=== PATIENT | female | born 1950 | race Caucasian/White ===

== ENCOUNTER → 2017-08-25 13:50 | Outpatient (CLI) | payer MEDICARE, SELFPAY ==
[2017-08-25 15:34] LABS: Blood Urea Nitrogen 30 mg/dL (7-17); Carbon Dioxide 27 mmol/L (22-32); Chloride 98 mmol/L (98-107); Estimated Glomerular Filt Rate 44.7 mL/min (>60); Glucose 148 mg/dL (80-110); HEMOLYSIS < 15 (0-50); Potassium 4.8 mmol/L (3.4-5.1); Sodium 139 mmol/L (137-145)
== END ==
PROVIDERS: Family Provider Family Medicine; PCP Family Medicine; Visit Provider Internal Medicine Cardiovascular Disease
DX: I10 Essential (primary) hypertension (principal)
CPT/HCPCS: 36415; 80048

== ENCOUNTER → 2017-11-04 09:25 | Outpatient (CLI) | payer MEDICARE, SELFPAY ==
[2017-11-04 11:52] LABS: Cholesterol 295 mg/dL (140-199); HDL Cholesterol 62 mg/dL (40-60); LDL Cholesterol Calculated 186 mg/dL (<100); Triglycerides 234 mg/dL (35-150)
== END ==
PROVIDERS: PCP Family Medicine; Visit Provider Internal Medicine Cardiovascular Disease
DX: E78.5 Hyperlipidemia, unspecified (principal)
CPT/HCPCS: 36415; 80061

== ENCOUNTER 2018-01-05 11:04 | Emergency (ER) | payer OTHER, MEDICARE, SELFPAY ==
[2018-01-05 11:20] VITALS: BP 191/85; PULSE 61; RESP 18; TEMP 36.8; O2SAT 97
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
[2018-01-05 14:53] LABS: Add Manual Diff / Slide Review NO; Basophils Percent Auto 0.8 % (0-2); Eosinophils Percent Auto 1.8 % (2-4); Hematocrit 37.8 % (36-46); Lymphocytes Percent Auto 18.1 % (25-40); Mean Corpuscular HGB Conc 34.5 % (30-36); Mean Corpuscular Hemoglobin 29.4 PG (26-34); Mean Corpuscular Volume 85.4 fL (80-100); Monocytes Percent Auto 8.1 % (3-14); Neutrophils Absolute Auto 5400 /uL (3000-5900); Neutrophils Percent Auto 71.2 % (50-75); Platelet Count 297 X10^3/uL (150-400); Red Blood Cell Count 4.42 X10^6/uL (4.0-5.2); Red Cell Distribution Width 13.7 % (11.6-14.8); White Blood Cell Count 7.6 X10^3/uL (4.5-11.0)
[2018-01-05 15:04] LABS: INR 2.5 (0.9-1.3); Prothrombin Time 27.1 SECONDS (10.1-12.7)
[2018-01-05 15:12] LABS: Alanine Aminotransferase 18 IU/L (9-52); Albumin 4.6 g/dL (3.5-5.0); Albumin Globulin Ratio 1.4 (1.0-2.8); Alkaline Phosphatase 83 U/L (38-126); Aspartate Aminotransferase 20 IU/L (14-36); BUN Creatinine Ratio 20.8 (6-22); Bilirubin Total 0.4 mg/dL (0.2-1.3); Blood Urea Nitrogen 25 mg/dL (7-17); Calcium 9.2 mg/dL (8.4-10.2); Carbon Dioxide 24 mmol/L (22-32); Chloride 105 mmol/L (98-107); Estimated Glomerular Filt Rate 44.5 mL/min (>60); Globulin 3.2 g/dL (1.7-4.1); Glucose 124 mg/dL (80-110); HEMOLYSIS < 15 (0-50); Lipase 129 U/L (23-300); Potassium 4.1 mmol/L (3.4-5.1); Sodium 144 mmol/L (137-145); Total Protein 7.8 g/dL (6.3-8.2)
[2018-01-05 16:50] VITALS: BP 180/95; PULSE 64; RESP 20; O2SAT 96
--- NOTE | 2018-01-07 16:33 | PC.NURSE ---
pt states feeling better each day, thank us for the call and the care.
== END 2018-01-05 16:52 | disposition home or self-care (01) ==
PROVIDERS: Emergency Provider Nurse Practitioner Family; PCP Family Medicine
DX: R07.89 Other chest pain (principal); R10.9 Unspecified abdominal pain; V43.62XA Car passenger injured in collision with other type car in traffic accident, initial encounter
CPT/HCPCS: 36591; 71260; 74177; 80053; 83690; 85025; 85610; 93005; 99283; 99285; Q9967

== ENCOUNTER → 2018-02-22 11:13 | Outpatient (CLI) | payer MEDICARE, SELFPAY ==
[2018-02-22 12:26] LABS: Hemoglobin A1C% w Est Avg Glu 6.7 % (4.0-6.0)
== END ==
PROVIDERS: PCP Family Medicine; Visit Provider Family Medicine
DX: E11.9 Type 2 diabetes mellitus without complications (principal); Z51.81 Encounter for therapeutic drug level monitoring
CPT/HCPCS: 36415; 83036

== ENCOUNTER → 2018-04-07 14:18 | Outpatient (CLI) | payer MEDICARE, SELFPAY ==
--- NOTE | 2018-04-07 14:19 | DI.MG.S_ITS ---
BILATERAL DIGITAL SCREENING MAMMOGRAM 3D/2D WITH CAD: 04/07/2018 CLINICAL: Routine screening. Comparison is made to exam dated: 07/04/2007 [facility]. There are scattered fibroglandular elements in both breasts. Current study was also evaluated with a Computer Aided Detection (CAD) system. No significant masses, calcifications, or other findings are seen in either breast. There has been no significant interval change. IMPRESSION: NEGATIVE There is no mammographic evidence of malignancy. A 1 year screening mammogram is recommended. This exam was interpreted at Station ID: [id number]. NOTE: For mammograms, a report in lay terms will be sent to the patient. Approximately 15% of breast malignancies will not be visualized mammographically. In the management of a palpable breast mass, a negative mammogram must not discourage biopsy of a clinically suspicious lesion. Electronically Signed By: Harsha mai/octavia:04/07/2018 16:02:06 letter sent: Normal Exam ACR BI-RADS Category 1: Negative [id number]
[2018-04-07 15:00] LABS: Bacteria Urine None Seen; RBC Urine None Seen (0-5/HPF); WBC Urine None Seen (0-5/HPF)
[2018-04-07 16:07] LABS: Appearance Urine UA CLEAR; Bilirubin Urine UA NEGATIVE (NEGATIVE); Color Urine UA YELLOW; Glucose Urine UA NEGATIVE (Negative); Ketones Urine UA TRACE (NEGATIVE); Leukocyte Esterase Urine UA NEGATIVE (NEGATIVE); Nitrite Urine UA NEGATIVE (Negative); Occult Blood Urine UA NEGATIVE (Negative); Protein Urine UA 2+ (Negative); Specific Gravity Urine UA >=1.030 (1.000-1.035); Urobilinogen Urine UA 0.2 E.U./dL (0.2)
[2018-04-07 16:12] LABS: Squamous Epithelial Cell Urine 5-10 /HPF
[2018-04-07 16:13] LABS: Culture Indicated Urine Cult Not Indicated; Hyaline Casts Urine 5-10/LPF
== END ==
PROVIDERS: PCP Family Medicine; Visit Provider Internal Medicine Nephrology
DX: Z12.31 Encounter for screening mammogram for malignant neoplasm of breast (principal); N18.3 Chronic kidney disease, stage 3 (moderate)
CPT/HCPCS: 77063; 77067; 81001

== ENCOUNTER → 2018-06-15 11:46 | Outpatient (CLI) | payer MEDICARE, SELFPAY ==
[2018-06-15 12:47] LABS: BUN Creatinine Ratio 26.4 (6-22); Blood Urea Nitrogen 29 mg/dL (7-17); Calcium 9.2 mg/dL (8.4-10.2); Carbon Dioxide 27 mmol/L (22-32); Chloride 101 mmol/L (98-107); Estimated Glomerular Filt Rate 49.2 mL/min (>60); Glucose 236 mg/dL (80-110); HEMOLYSIS < 15 (0-50); Magnesium 1.5 mg/dL (1.6-2.3); Potassium 4.3 mmol/L (3.4-5.1); Sodium 137 mmol/L (137-145)
[2018-06-15 13:14] LABS: Thyroid Stimulating Hormone 2.72 uIU/mL (0.47-4.68)
== END ==
PROVIDERS: PCP Family Medicine; Visit Provider Internal Medicine Cardiovascular Disease
DX: I49.5 Sick sinus syndrome (principal); I10 Essential (primary) hypertension
CPT/HCPCS: 36415; 80048; 83735; 84443

== ENCOUNTER → 2018-09-26 09:20 | Outpatient (CLI) | payer MEDICARE, SELFPAY ==
[2018-09-26 10:19] LABS: Hemoglobin A1C% w Est Avg Glu 7.2 % (4.0-6.0)
[2018-09-26 10:43] LABS: Creatinine Urine Random 270.1 mg/dL
[2018-09-26 10:45] LABS: Alanine Aminotransferase 21 IU/L (9-52); Albumin 4.3 g/dL (3.5-5.0); Albumin Globulin Ratio 1.3 (1.0-2.8); Alkaline Phosphatase 70 U/L (38-126); Aspartate Aminotransferase 24 IU/L (14-36); BUN Creatinine Ratio 23.6 (6-22); Bilirubin Total 0.4 mg/dL (0.2-1.3); Blood Urea Nitrogen 26 mg/dL (7-17); Calcium 9.9 mg/dL (8.4-10.2); Carbon Dioxide 25 mmol/L (22-32); Chloride 103 mmol/L (98-107); Cholesterol 296 mg/dL (140-199); Estimated Glomerular Filt Rate 49.2 mL/min (>60); Globulin 3.3 g/dL (1.7-4.1); Glucose 205 mg/dL (80-110); HDL Cholesterol 52 mg/dL (40-60); HEMOLYSIS < 15 (0-50); LDL Cholesterol Calculated 182 mg/dL (<100); Potassium 4.2 mmol/L (3.4-5.1); Sodium 138 mmol/L (137-145); Total Protein 7.6 g/dL (6.3-8.2); Triglycerides 309 mg/dL (35-150)
[2018-09-26 10:47] LABS: Microalbumi Creatinin Ratio Ur 34.8 ug/mg CR (<30); Microalbumin Urine Random 9.4 mg/dL (0-1.6)
[2018-09-26 11:00] LABS: Free T3, Triiodothyronine Free 2.32 pg/mL (2.77-5.27); Free T4, Direct Thyroxine 0.84 ng/dL (0.78-2.19)
[2018-09-26 11:14] LABS: Thyroid Stimulating Hormone 3.83 uIU/mL (0.47-4.68)
== END ==
PROVIDERS: Physician Assistant; PCP Family Medicine; Visit Provider Family Medicine
DX: E11.9 Type 2 diabetes mellitus without complications (principal); E78.5 Hyperlipidemia, unspecified; I12.9 Hypertensive chronic kidney disease with stage 1 through stage 4 chronic kidney disease, or unspecified chronic kidney disease; I48.91 Unspecified atrial fibrillation; N18.9 Chronic kidney disease, unspecified; Z13.29 Encounter for screening for other suspected endocrine disorder; Z51.81 Encounter for therapeutic drug level monitoring
CPT/HCPCS: 36415; 80053; 80061; 82043; 82570; 83036; 84439; 84443; 84481

== ENCOUNTER → 2018-12-10 15:27 | Outpatient (CLI) | payer MEDICARE, SELFPAY | PROVIDERS: PCP Family Medicine; Visit Provider Nurse Practitioner | DX: N30.00 Acute cystitis without hematuria (principal) | CPT/HCPCS: 87077; 87086; 87147; 87186 ==

== ENCOUNTER → 2019-01-15 08:44 | Outpatient (CLI) | payer MEDICARE, SELFPAY ==
[2019-01-15 09:42] LABS: Alanine Aminotransferase 18 IU/L (<35); Albumin 4.6 g/dL (3.5-5.0); Albumin Globulin Ratio 1.5 (1.0-2.8); Alkaline Phosphatase 81 U/L (38-126); Aspartate Aminotransferase 24 IU/L (14-36); BUN Creatinine Ratio 21.3 (6-22); Bilirubin Total 0.4 mg/dL (0.2-1.3); Blood Urea Nitrogen 32 mg/dL (7-17); Calcium 9.7 mg/dL (8.4-10.2); Carbon Dioxide 27 mmol/L (22-32); Chloride 103 mmol/L (98-107); Cholesterol 269 mg/dL (140-199); Estimated Glomerular Filt Rate 34.3 mL/min (>60); Glucose 199 mg/dL (80-110); HDL Cholesterol 56 mg/dL (40-60); HEMOLYSIS < 15 (0-50); LDL Cholesterol Calculated 171 mg/dL (<100); Potassium 4.4 mmol/L (3.4-5.1); Sodium 138 mmol/L (137-145); Total Protein 7.6 g/dL (6.3-8.2); Triglycerides 212 mg/dL (35-150)
[2019-01-15 09:47] LABS: Hemoglobin A1C% w Est Avg Glu 7.1 % (4.0-6.0)
== END ==
PROVIDERS: PCP Family Medicine; Visit Provider Family Medicine
DX: E11.9 Type 2 diabetes mellitus without complications (principal); E78.5 Hyperlipidemia, unspecified; I10 Essential (primary) hypertension
CPT/HCPCS: 36415; 80053; 80061; 83036

== ENCOUNTER → 2019-05-06 11:44 | Outpatient (CLI) | payer MEDICARE, SELFPAY | PROVIDERS: PCP Family Medicine; Visit Provider Physician Assistant | DX: R30.0 Dysuria (principal) | CPT/HCPCS: 87077; 87086; 87186 ==

== ENCOUNTER → 2019-08-29 11:38 | Outpatient (CLI) | payer MEDICARE, SELFPAY ==
[2019-08-29 12:40] LABS: Add Manual Diff / Slide Review NO; Basophils Absolute Auto 100 /uL (0-100); Basophils Percent Auto 0.7 % (0-2); Eosinophils Absolute Auto 100 /uL (0-450); Eosinophils Percent Auto 0.9 % (2-4); Hematocrit 39.2 % (36-46); Hemoglobin 12.8 g/dL (12.0-16.0); Lymphocytes Absolute Auto 1600 /uL (1100-4500); Lymphocytes Percent Auto 19.4 % (25-40); Mean Corpuscular HGB Conc 32.7 % (30-36); Mean Corpuscular Hemoglobin 28.3 PG (26-34); Mean Corpuscular Volume 86.6 fL (80-100); Monocytes Absolute Auto 600 /uL (0-900); Monocytes Percent Auto 7.3 % (3-14); Neutrophils Absolute Auto 5900 /uL (1500-7000); Neutrophils Percent Auto 71.7 % (50-75); Platelet Count 344 X10^3/uL (150-400); Red Blood Cell Count 4.52 X10^6/uL (4.0-5.2); Red Cell Distribution Width 13.3 % (11.6-14.8); White Blood Cell Count 8.2 X10^3/uL (4.5-11.0)
[2019-08-29 12:48] LABS: Hemoglobin A1C% w Est Avg Glu 7.3 % (4.0-6.0)
[2019-08-29 13:47] LABS: Alanine Aminotransferase 14 IU/L (<35); Albumin 4.5 g/dL (3.5-5.0); Albumin Globulin Ratio 1.6 (1.0-2.8); Alkaline Phosphatase 73 U/L (38-126); Aspartate Aminotransferase 21 IU/L (14-36); BUN Creatinine Ratio 24.2 (6-22); Bilirubin Total 0.4 mg/dL (0.2-1.3); Blood Urea Nitrogen 31 mg/dL (7-17); Calcium 10.3 mg/dL (8.4-10.2); Carbon Dioxide 26 mmol/L (22-32); Chloride 101 mmol/L (98-107); Cholesterol 258 mg/dL (140-199); Estimated Glomerular Filt Rate 41.2 mL/min (>60); Globulin 2.9 g/dL (1.7-4.1); Glucose 150 mg/dL (80-110); HDL Cholesterol 68 mg/dL (40-60); HEMOLYSIS < 15 (0-50); LDL Cholesterol Calculated 152 mg/dL (<100); Potassium 4.7 mmol/L (3.4-5.1); Sodium 136 mmol/L (137-145); Total Protein 7.4 g/dL (6.3-8.2); Triglycerides 191 mg/dL (35-150)
[2019-08-29 14:13] LABS: TSH w/ Reflex to FT4 1.55 uIU/mL (0.47-4.68)
== END ==
PROVIDERS: PCP Family Medicine; Referring Provider Family Medicine; Visit Provider Family Medicine
DX: E11.9 Type 2 diabetes mellitus without complications (principal); E78.5 Hyperlipidemia, unspecified; I10 Essential (primary) hypertension; R60.0 Localized edema
CPT/HCPCS: 36415; 80053; 80061; 83036; 84443; 85025

== ENCOUNTER → 2019-11-12 10:00 | Outpatient (CLI) | payer MEDICARE, SELFPAY ==
[2019-11-12 11:33] LABS: Alanine Aminotransferase 15 IU/L (<35); Albumin 4.3 g/dL (3.5-5.0); Albumin Globulin Ratio 1.3 (1.0-2.8); Alkaline Phosphatase 73 U/L (38-126); Aspartate Aminotransferase 20 IU/L (14-36); BUN Creatinine Ratio 24.6 (6-22); Bilirubin Total 0.5 mg/dL (0.2-1.3); Blood Urea Nitrogen 33 mg/dL (7-17); Calcium 9.7 mg/dL (8.4-10.2); Carbon Dioxide 27 mmol/L (22-32); Chloride 103 mmol/L (98-107); Cholesterol 254 mg/dL (140-199); Globulin 3.3 g/dL (1.7-4.1); Glucose 164 mg/dL (80-110); HDL Cholesterol 57 mg/dL (40-60); HEMOLYSIS < 15 (0-50); LDL Cholesterol Calculated 151 mg/dL (<100); Potassium 4.4 mmol/L (3.4-5.1); Sodium 138 mmol/L (137-145); Total Protein 7.6 g/dL (6.3-8.2); Triglycerides 230 mg/dL (35-150)
== END ==
PROVIDERS: PCP Family Medicine; Referring Provider Internal Medicine Cardiovascular Disease; Visit Provider Internal Medicine Cardiovascular Disease
DX: E78.5 Hyperlipidemia, unspecified (principal)
CPT/HCPCS: 36415; 80053; 80061

== ENCOUNTER → 2019-11-20 07:55 | Outpatient (CLI) | payer MEDICARE, SELFPAY ==
--- NOTE | 2019-11-20 | DI.ECHO.S_ITS ---
[place] [facility]---------+ [facility] +---------+ : : [address] : : : : [id number] : : : : Phone: [phone]+ Echocardiogram Report + + :Name: COLTON SMITH Study Date: 11/20/2019 Height: 64 in : :[facility] Weight: 227 lb : : Gender: Female BSA: 2.1 m2 : :: 1950 Age: 69 yrs BP: 155/89 mmHg: :Reason For Study: AORTIC STENOSIS : :Ordering Physician: ROSSI, : :NOAH Performed By: Adri Anthony : :Referring: NOAH RICHEY : + + Interpretation Summary The left ventricle is normal in size and wall thickness. The ejection fraction is estimated to be 60-65%. Diastolic parameters suggest a pseudonormalization pattern, consistent with probable elevated filling pressures. The right ventricle is normal in size and function. There is a pacemaker lead in the right ventricle. The aortic valve is mildly calcified. There is mildly reduced leaflet mobility. The aortic valve is not well visualized. The peak aortic velocity is 2.48 m/sec. The aortic valve mean gradient is 12 mmHg. There is mild aortic stenosis. The calculated aortic valve area is 1.6 cm2. There is mild aortic regurgitation. There is mild tricuspid regurgitation. The right ventricular systolic pressure is estimated to be at least 30.5 mmHg based on an estimated right atrial pressure of 3 mm Hg. Mild atherosclerotic plaque(s) in the aortic arch. Procedure: A two-dimensional transthoracic echocardiogram with color flow and Doppler was performed. The study quality was technically adequate. The patient had an echocardiogram, but there is no comparison study available. The patient was in sinus rhythm with heart rates between 60-65 bpm during the exam. Left Ventricle: The left ventricle is normal in size and wall thickness. There is no thrombus. The ejection fraction is estimated to be 60-65%. There are no focal wall motion abnormalities. Diastolic parameters suggest a pseudonormalization pattern, consistent with probable elevated filling pressures. Right Ventricle: The right ventricle is normal in size and function. There is a pacemaker lead in the right ventricle. Atria: Both atria are normal in size. There is a catheter/pacemaker lead seen in the right atrium. There is no Doppler evidence for an interatrial shunt. Mitral Valve: There is mild mitral annular calcification. There is mild mitral regurgitation. Aortic Valve: The aortic valve is not well visualized. The aortic valve is mildly calcified. There is mildly reduced leaflet mobility. There is mild aortic stenosis. The peak aortic velocity is 2.48 m/sec. The aortic valve mean gradient is 12 mmHg. The calculated aortic valve area is 1.6 cm2. There is mild aortic regurgitation. Tricuspid Valve: The tricuspid valve is normal in structure and function. There is mild tricuspid regurgitation. The right ventricular systolic pressure is estimated to be at least 30.5 mmHg based on an estimated right atrial pressure of 3 mm Hg. Pulmonic Valve: The pulmonic valve is not well visualized. There is trace pulmonic regurgitation. Great Vessels: The aortic root is normal size. There is aortic root sclerosis/calcification. The ascending aorta is at the upper limits of normal in size. Mild atherosclerotic plaque(s) in the aortic arch. The IVC is of normal diameter and collapses greater than 50% with a sniff. This suggests a low right atrial pressure of 3 mm Hg. Pericardium/ Pleura There is no pericardial effusion. There is an anterior echo-free space consistent with a fat pad. There is no pleural effusion. MMode/2D Measurements & Calculations LVIDd: 4.5 cm LVOT diam: 2.1 cm LVIDs: 3.2 cm Ao root diam: 2.6 cm FS: 30.2 % asc Aorta Diam: 3.6 cm EPSS: 0.68 cm Ao Arch Diam (Prox Trans): 3.3 cm IVSd: 1.0 cm LVPWd: 0.80 cm LV freire. diameter/BSA (cm/m^2): 2.2 LV sys. diameter/BSA (cm/m^2): 1.5 LA A2 area: 20.6 cm2 RA long axis: 5.0 cm LA A4 area: 18.1 cm2 RA area: 14.5 cm2 LA length (vol): 5.5 cm RA vol: 35.5 ml LA vol: 58.0 ml RA : 17.2 ml/m2 LA vol index: 28.1 ml/m2 IVC diam: 1.7 cm RVD1 (basal): 3.0 cm TAPSE: 2.5 cm Doppler Measurements & Calculations Ao V2 max: 248.1 cm/sec LVOT Max Jesse: 123.9 cm/sec Ao V2 mean: 159.0 cm/sec LV V1 max P.1 mmHg Ao max P.4 mmHg LV V1 VTI: 30.3 cm Ao mean P.2 mmHg RADHA(I,D): 1.6 cm2 Ao V2 VTI: 62.9 cm RADHA(V,D): 1.7 cm2 sev ratio: 0.48 RADHA indexed to BSA (cm^2/m^2): 0.78 AI P1/2t: 576.0 msec AI dec slope: 191.3 cm/sec2 MV E max jesse: 126.4 cm/sec TR max jesse: 262.2 cm/sec MV A max jesse: 79.0 cm/sec TR max P.5 mmHg MV E/A: 1.6 PA V2 max: 85.1 cm/sec Med Peak E' Jesse: 6.6 cm/sec PA V2 mean: 54.7 cm/sec E/E' med: 19.3 PA mean P.4 mmHg Lat Peak E' Jesse: 10.5 cm/sec PA pr(Accel): 31.0 mmHg E/E' lat: 12.0 E/e' average: 15.6 MV dec time: 0.22 sec SV(LVOT): 101.7 ml Reading Physician:09:48 AM
== END ==
PROVIDERS: PCP Family Medicine; Referring Provider Family Medicine; Visit Provider Internal Medicine Cardiovascular Disease
DX: I08.3 Combined rheumatic disorders of mitral, aortic and tricuspid valves (principal); I70.0 Atherosclerosis of aorta; Z95.0 Presence of cardiac pacemaker
CPT/HCPCS: 93306

== ENCOUNTER 2020-09-23 12:27 | Emergency (ER) | payer MEDICARE, SELFPAY ==
[2020-09-23] VITALS (20 sets, daily range): BP systolic 119–183; BP diastolic 56–77; PULSE 59–67; RESP 12–21; TEMP 36.7; O2SAT 94–99; BMI 35.6
--- NOTE | 2020-09-23 12:46 | DI.RAD.S_ITS ---
PROCEDURE: XR CHEST 1V INDICATIONS: dizzi TECHNIQUE: One view of the chest was acquired. COMPARISON: [facility], , CHEST 1 VIEW, 01/24/2016, 10:34. [facility], , CHEST 2 VIEW, 08/04/2006, 10:31. FINDINGS: Surgical changes and devices: Pacemaker and dual chamber leads normal. Lungs and pleura: Lungs are clear. No pleural effusions or pneumothorax. Mediastinum: Mediastinal contours appear normal. Heart size is normal. Bones and chest wall: No suspicious bony lesions. Overlying soft tissues appear unremarkable. IMPRESSION: Pacemaking device and dual chamber leads normal, no acute disease. Mildly elevated right hemidiaphragm when compared to that on the left. Dictated by: Thom Pleitez M.D. on 09/23/2020 at 13:31 Approved by: Thom Pleitez M.D. on 09/23/2020 at 13:32
--- NOTE | 2020-09-23 12:50 | DI.CT.S_ITS ---
PROCEDURE: CT HEAD/BRAIN WO CON INDICATIONS: headache, dizzy/light headed x 2-3 days. TECHNIQUE: Noncontrast 4.5 mm thick angled axial sections acquired from the foramen magnum to the vertex, with coronal and sagittal reformats. For radiation dose reduction, the following was used: automated exposure control, adjustment of mA and/or kV according to patient size. COMPARISON: None. FINDINGS: Image quality: Excellent. CSF spaces: Basal cisterns are patent. No extra-axial fluid collections. Ventricles are normal in size and shape. Brain: No midline shift. No intracranial masses or hemorrhage. [place]-white matter interface is normal. Skull and face: Calvarium and visualized facial bones are intact, without suspicious lesions. Sinuses: Visualized sinuses and mastoids are clear. IMPRESSION: No acute finding. Dictated by: Kishore Rolle M.D. on 09/23/2020 at 14:52 Approved by: Kishore Rolle M.D. on 09/23/2020 at 14:54
[2020-09-23 13:12] LABS: Appearance Urine UA SL CLOUDY; Bilirubin Urine UA NEGATIVE (NEGATIVE); Color Urine UA YELLOW; Glucose Urine UA NEGATIVE (Negative); Ketones Urine UA NEGATIVE (NEGATIVE); Leukocyte Esterase Urine UA 1+ (NEGATIVE); Nitrite Urine UA POSITIVE (Negative); Occult Blood Urine UA 3+ (Negative); Protein Urine UA 1+ (Negative); Urobilinogen Urine UA 0.2 E.U./dL (0.2)
[2020-09-23 13:25] LABS: Add Manual Diff / Slide Review NO; Basophils Absolute Auto 100 /uL (0-100); Basophils Percent Auto 0.6 % (0-2); Eosinophils Absolute Auto 100 /uL (0-450); Eosinophils Percent Auto 0.9 % (2-4); Hematocrit 37.6 % (36-46); Hemoglobin 12.8 g/dL (12.0-16.0); Lymphocytes Absolute Auto 1000 /uL (1100-4500); Lymphocytes Percent Auto 11.2 % (25-40); Mean Corpuscular HGB Conc 34.2 % (30-36); Mean Corpuscular Hemoglobin 29.3 PG (26-34); Mean Corpuscular Volume 85.8 fL (80-100); Monocytes Absolute Auto 800 /uL (0-900); Monocytes Percent Auto 9.4 % (3-14); Neutrophils Absolute Auto 6800 /uL (1500-7000); Neutrophils Percent Auto 77.9 % (50-75); Platelet Count 299 X10^3/uL (150-400); Red Blood Cell Count 4.38 X10^6/uL (4.0-5.2); Red Cell Distribution Width 12.9 % (11.6-14.8); White Blood Cell Count 8.8 X10^3/uL (4.5-11.0)
[2020-09-23 13:30] LABS: Bacteria Urine Moderate (10-30); Culture Indicated Urine Specimen Cultured; RBC Urine 5-10/HPF (0-5/HPF); Squamous Epithelial Cell Urine 1-5 /HPF (0-5/HPF); WBC Urine 30-100/HPF (0-5/HPF)
[2020-09-23 13:34] LABS: INR 3.3 (0.9-1.3); Prothrombin Time 38.2 SECONDS (10.1-12.7)
[2020-09-23 13:39] LABS: Lactate (Lactic Acid) 1.6 mmol/L (0.7-2.1)
[2020-09-23 13:40] LABS: Alanine Aminotransferase 15 IU/L (<35); Albumin 4.1 g/dL (3.5-5.0); Albumin Globulin Ratio 1.1 (1.0-2.8); Alkaline Phosphatase 83 U/L (38-126); Aspartate Aminotransferase 21 IU/L (14-36); BUN Creatinine Ratio 25.3 (6-22); Bilirubin Total 0.3 mg/dL (0.2-1.3); Blood Urea Nitrogen 46 mg/dL (7-17); Calcium 10.1 mg/dL (8.4-10.2); Carbon Dioxide 26 mmol/L (22-32); Chloride 104 mmol/L (98-107); Estimated Glomerular Filt Rate 27.4 mL/min (>60); Globulin 3.6 g/dL (1.7-4.1); Glucose 151 mg/dL (80-110); HEMOLYSIS < 15 (0-50); Potassium 4.6 mmol/L (3.4-5.1); Sodium 139 mmol/L (137-145); Total Protein 7.7 g/dL (6.3-8.2)
[2020-09-23 13:41] LABS: COVID19 -Nasal RAPID Negative (Negative)
[2020-09-23 13:52] LABS: Troponin I < 0.012 ng/mL (0.01-0.034)
[2020-09-23 13:56] LABS: Procalcitonin 0.55 ng/mL (<0.5)
[2020-09-23] MEDS: SODIUM CHLORIDE 0.9% 1,000 ML 1000 ML IV (13:59)
[2020-09-23] MEDS: cefTRIAXone 2,000 MG in SODIUM CHLORIDE 0.9% 100 ML 200 ML IV (14:03)
--- NOTE | 2020-09-23 17:06 | ED_ITS ---
HPI - Dizziness General Chief Complaint: Dizziness Stated Complaint: crazy blood sugar, dizzy, nausea Time Seen by Provider: 09/23/20 13:54 History of Present Illness HPI Narrative: This is a 69-year-old female comes in with complaint of feeling generally unwell, she has had some dysuria, urgency and frequency about 2 days ago which had improved. She has had some generalized abdominal discomfort. She does not really describe any pain. She has not any back or flank pain. She has not had fevers. She has had nausea but no vomiting. She denies any chest pain, no shortness of breath, no cold cough or congestion. Patient has had a headache although this improved here. She denies any neck pain. No photophobia, no difficulty with movement. Patient has not had any rashes or skin changes appreciated. Patient does take medication for cardiac arrhythmias including flecainide and warfarin. Patient is on losartan, hydrochlorothiazide as well as metformin for diabetes. Patient states her glucose has been somewhat elevated for her. It was 162 here in the department. Related Data Home Medications Medication Instructions Recorded Confirmed Lancets 1 ea MISCELLANEOUS DIRECTED 01/05/18 11/22/19 flecainide 50 mg tablet 50 mg PO BID 01/05/18 11/22/19 losartan 50 mg tablet 50 mg PO DAILY tab 03/08/19 11/22/19 Previous Rx's Medication Instructions Recorded Glucose: Test Strips #100 each 12/25/18 True Metrix Blood Glucose Meter #1 ea 01/12/19 nystatin 100,000 unit/gram topical 1 applictn TOP BID #60 gram 09/05/19 powder warfarin 5 mg tablet (Coumadin) 5 mg PO DAILY #90 tab 11/01/19 metformin 500 mg tablet 500 mg PO BID #180 tab 03/05/20 (Glucophage) levothyroxine 100 mcg tablet See Rx Instructions .ROUTE 06/06/20 .COMPLEX #90 tab hydrochlorothiazide 25 mg tablet See Rx Instructions .ROUTE 09/04/20 .COMPLEX #90 tab ciprofloxacin HCl 500 mg tablet 500 mg PO Q12H #20 tab 09/23/20 Allergies Allergy/AdvReac Type Severity Reaction Status Date / Time codeine AdvReac Mild N/V Verified 09/23/20 13:45 Review of Systems Review of Systems ROS Unobtainable: All systems reviewed & are unremarkable except as noted in HPI and below Patient History Medical History Bilateral lower extremity edema Candidal intertrigo Diabetes HTN (hypertension) Hyperlipidemia Pelvic somatic dysfunction Sacral region somatic dysfunction Segmental and somatic dysfunction of abdomen and other regions Segmental and somatic dysfunction of rib cage Somatic dysfunction of lower extremity Warfarin anticoagulation Surgical History History of tonsillectomy Status post appendectomy Status post cholecystectomy Family History Father Hypertension Mother Hypertension Stroke Social History Smoking Status: Never smoker Smoking Status: Never smoker alcohol intake frequency: holidays/special occasions only Substance Use Type: does not use Exam Narrative Exam Narrative: GEN: well nourished, well appearing female, alert and oriented x 3, patient appears to be in mild distress. HEENT: Atraumatic, pupils are equal round reactive to light, extraocular movements are intact, nares are clear, moist mucous membranes. No meningeal signs. Patient has full range of motion of her neck. HEART: Regular rate and rhythm without murmur, clicks, rubs. LUNGS:Lungs clear to auscultation, no wheezes, rales, crackles, chest moves s ymmetrically ABD:bowel sounds normal, soft, non-tender, no guarding, rebound, rigidity, no masses noted, no hepatosplenomegaly :No CVA tenderness MSCL: Non-tender, no muscle atrophy, muscles strength 5/5 upper and lower extremities, full range of motion, normal gait NEURO:CN 2-12 intact, sensation normal SKIN: No rash, erythema or skin changes noted. Initial Vital Signs Initial Vital Signs: Vital Signs Temperature 98.1 F 09/23/20 12:41 Pulse Rate 60 09/23/20 12:41 Respiratory Rate 20 09/23/20 12:41 Blood Pressure 161/73 H 09/23/20 12:41 Pulse Oximetry 99 09/23/20 12:41 Course Orders Ordered: ED Orders 09/23/20 12:46 XR chest 1V Stat 09/23/20 12:50 CT head/brain wo con Stat 09/23/20 12:55 UA Complete [Urinalysis and Microscopic] Stat Urine Culture Stat 09/23/20 13:10 COVID19 -Nasal swab/Pre-Proc Stat Complete Blood Count AUTO DIFF Stat Comprehensive Metabolic Panel Stat Lactate (Lactic Acid) Stat Procalcitonin Stat Prothrombin Time INR Stat Troponin I Stat 09/23/20 17:13 Blood Culture Stat Discontinued Medications Sodium Chloride (Normal Saline 0.9%) 1,000 mls @ 1,000 mls/hr IV BOLUS ONE Stop: 09/23/20 14:54 Last Infusion: 09/23/20 14:41 Dose: 0 mls/hr Documented by: Admin: 09/23/20 13:59 Dose: 1,000 mls/hr Documented by: BRITNI Ceftriaxone Sodium 2,000 mg/ (Sodium Chloride) 100 mls @ 200 mls/hr IV NOW ONE Stop: 09/23/20 13:55 Last Infusion: 09/23/20 14:41 Dose: 0 mls/hr Documented by: Admin: 09/23/20 14:03 Dose: 200 mls/hr Documented by: BRITNI Vital Signs Vital signs: Vital Signs - 8 hr 09/23/20 12:41 09/23/20 12:59 09/23/20 13:00 Temperature 98.1 F Pulse Rate 60 60 60 Respiratory Rate 20 14 12 Blood Pressure 161/73 H 144/66 H Pulse Oximetry 99 09/23/20 13:30 09/23/20 14:00 09/23/20 14:08 Temperature Pulse Rate 60 60 60 Respiratory Rate 12 21 16 Blood Pressure 145/63 H Pulse Oximetry 94 95 97 09/23/20 14:30 09/23/20 14:31 09/23/20 14:49 Temperature Pulse Rate 59 L 60 67 Respiratory Rate 12 16 20 Blood Pressure 133/63 168/77 H Pulse Oximetry 96 97 98 09/23/20 15:00 09/23/20 15:30 09/23/20 15:31 Temperature Pulse Rate 59 L 60 62 Respiratory Rate 12 13 14 Blood Pressure 148/74 H 132/63 Pulse Oximetry 98 97 97 09/23/20 16:00 09/23/20 16:01 09/23/20 16:30 Temperature Pulse Rate 60 60 60 Respiratory Rate 16 18 16 Blood Pressure 137/64 Pulse Oximetry 97 97 97 09/23/20 16:31 08/03/21 17:00 09/23/20 17:01 Temperature Pulse Rate 60 60 60 Respiratory Rate 15 15 15 Blood Pressure 133/63 119/56 L Pulse Oximetry 96 97 97 09/23/20 17:30 09/23/20 17:47 Temperature Pulse Rate 61 65 Respiratory Rate 19 Blood Pressure 150/67 H 183/77 H Pulse Oximetry 96 98 MDM - Dizziness Lab Data Result diagrams: 09/23/20 13:10 09/23/20 13:10 Labs: Lab Results 09/23/20 09/23/20 09/23/20 Range/Units 12:55 13:10 13:10 WBC 8.8 (4.5-11.0) X10^3/uL RBC 4.38 (4.0-5.2) X10^6/uL Hgb 12.8 (12.0-16.0) g/dL Hct 37.6 (36-46) % MCV 85.8 (80-100) fL MCH 29.3 (26-34) PG MCHC 34.2 (30-36) % RDW 12.9 (11.6-14.8) % Plt Count 299 (150-400) X10^3/uL Neut % (Auto) 77.9 H (50-75) % Lymph % (Auto) 11.2 L (25-40) % [place] % (Auto) 9.4 (3-14) % Eos % (Auto) 0.9 L (2-4) % Baso % (Auto) 0.6 (0-2) % Neut # (Auto) 6800 (0683-2529) /uL Lymph # (Auto) 1000 L (9553-7805) /uL [place] # (Auto) 800 (0-900) /uL Eos # (Auto) 100 (0-450) /uL Baso # (Auto) 100 (0-100) /uL PT 38.2 H (10.1-12.7) SECONDS INR 3.3 H (0.9-1.3) Sodium (137-145) mmol/L Potassium (3.4-5.1) mmol/L Chloride (98-107) mmol/L Carbon Dioxide (22-32) mmol/L BUN (7-17) mg/dL Creatinine (0.52-1.04) mg/dL Estimated GFR (>60) mL/min BUN/Creatinine Ratio (6-22) Glucose (80-110) mg/dL Lactate (0.7-2.1) mmol/L Calcium (8.4-10.2) mg/dL Total Bilirubin (0.2-1.3) mg/dL AST (14-36) IU/L ALT (<35) IU/L Alkaline Phosphatase (38-126) U/L Troponin I (0.01-0.034) ng/mL Total Protein (6.3-8.2) g/dL Albumin (3.5-5.0) g/dL Globulin (1.7-4.1) g/dL Albumin/Globulin Ratio (1.0-2.8) Procalcitonin (<0.5) ng/mL Urine Color Yellow Urine Appearance Sl cloudy Urine pH 5.0 (4.5-8.0) Ur Specific [place]selmo 1.020 (1.000-1.035) Urine Protein 1+ H (Negative) Urine Glucose (UA) Negative (Negative) g/dL Urine Ketones Negative (NEGATIVE) Urine Occult Blood 3+ H (Negative) Urine Nitrate Positive H (Negative) Urine Bilirubin Negative (NEGATIVE) Urine Urobilinogen 0.2 (0.2) E.U./dL Ur Leukocyte Esterase 1+ H (NEGATIVE) Urine RBC 5-10/hpf H (0-5/HPF) Urine WBC 30-100/hpf H (0-5/HPF) Ur Squamous Epith Cells 1-5 /hpf (0-5/HPF) Urine Bacteria Moderate (10-30) H (None) Ur Culture Indicated? Specimen cultured SARS-CoV-2 (PCR) (Negative) 09/23/20 09/23/20 09/23/20 Range/Units 13:10 13:10 13:10 WBC (4.5-11.0) X10^3/uL RBC (4.0-5.2) X10^6/uL Hgb (12.0-16.0) g/dL Hct (36-46) % MCV (80-100) fL MCH (26-34) PG MCHC (30-36) % RDW (11.6-14.8) % Plt Count (150-400) X10^3/uL Neut % (Auto) (50-75) % Lymph % (Auto) (25-40) % [place] % (Auto) (3-14) % Eos % (Auto) (2-4) % Baso % (Auto) (0-2) % Neut # (Auto) (5903-0133) /uL Lymph # (Auto) (1471-8312) /uL [place] # (Auto) (0-900) /uL Eos # (Auto) (0-450) /uL Baso # (Auto) (0-100) /uL PT (10.1-12.7) SECONDS INR (0.9-1.3) Sodium 139 (137-145) mmol/L Potassium 4.6 (3.4-5.1) mmol/L Chloride 104 (98-107) mmol/L Carbon Dioxide 26 (22-32) mmol/L BUN 46 H (7-17) mg/dL Creatinine 1.82 H (0.52-1.04) mg/dL Estimated GFR 27.4 L (>60) mL/min BUN/Creatinine Ratio 25.3 H (6-22) Glucose 151 H (80-110) mg/dL Lactate 1.6 (0.7-2.1) mmol/L Calcium 10.1 (8.4-10.2) mg/dL Total Bilirubin 0.3 (0.2-1.3) mg/dL AST 21 (14-36) IU/L ALT 15 (<35) IU/L Alkaline Phosphatase 83 (38-126) U/L Troponin I < 0.012 (0.01-0.034) ng/mL Total Protein 7.7 (6.3-8.2) g/dL Albumin 4.1 (3.5-5.0) g/dL Globulin 3.6 (1.7-4.1) g/dL Albumin/Globulin Ratio 1.1 (1.0-2.8) Procalcitonin 0.55 H (<0.5) ng/mL Urine Color Urine Appearance Urine pH (4.5-8.0) Ur Specific Anselmo (1.000-1.035) Urine Protein (Negative) Urine Glucose (UA) (Negative) g/dL Urine Ketones (NEGATIVE) Urine Occult Blood (Negative) Urine Nitrate (Negative) Urine Bilirubin (NEGATIVE) Urine Urobilinogen (0.2) E.U./dL Ur Leukocyte Esterase (NEGATIVE) Urine RBC (0-5/HPF) Urine WBC (0-5/HPF) Ur Squamous Epith Cells (0-5/HPF) Urine Bacteria (None) Ur Culture Indicated? SARS-CoV-2 (PCR) Negative (Negative) Point of Care Testing Glucose POC 162 Imaging Data Chest x-ray: Radiologist's Impression: [address] [id number] ReportSigned Patient: Pat Thayer LMR#: [id number]: [id number]:[id number]/Sex: 69 / FDate of Service: 09/23/20Loc: EDAccession Number: [id number] Procedure: XR chest 1V Ordering Provider: Latosha Curry D.O. PROCEDURE: XR CHEST 1V INDICATIONS: dizzi TECHNIQUE: One view of the chest was acquired. COMPARISON: [facility], CHEST 1 VIEW, 01/24/2016, 10:34. [facility], CHEST 2 VIEW, 08/04/2006, 10:31. FINDINGS: Surgical changes and devices: Pacemaker and dual chamber leads normal. Lungs and pleura: Lungs are clear. No pleural effusions or pneumothorax. Mediastinum: Mediastinal contours appear normal. Heart size is normal. Bones and chest wall: No suspicious bony lesions. Overlying soft tissues appear unremarkable. IMPRESSION: Pacemaking device and dual chamber leads normal, no acute disease. Mildly elevated right hemidiaphragm when compared to that on the left. Dictated by: Thom Pleitez M.D. on 09/23/2020 at 13:31 Approved by: Thom Pleitez M.D. on 09/23/2020 at 13:32 CT scan - head: Radiologist's Impression: Pat Thayer L 69 F [address] [id number] Scan ReportSigned Patient: Pat Thayer LMR#: [id number]: [id number]:[id number]/Sex: 69 / FDate of Service: 09/23/20Loc: EDAccession Number: [id number] Procedure: CT head/brain wo con Ordering Provider: Latosha Curry D.O. PROCEDURE: CT HEAD/BRAIN WO CON INDICATIONS: headache, dizzy/light headed x 2-3 days. TECHNIQUE: Noncontrast 4.5 mm thick angled axial sections acquired from the foramen magnum to the vertex, with coronal and sagittal reformats. For radiation dose reduction, the following was used: automated exposure control, adjustment of mA and/or kV according to patient size. COMPARISON: None. FINDINGS: Image quality: Excellent. CSF spaces: Basal cisterns are patent. No extra-axial fluid collections. Ventricles are normal in size and shape. Brain: No midline shift. No intracranial masses or hemorrhage. [place]-white matter interface is normal. Skull and face: Calvarium and visualized facial bones are intact, without s uspicious lesions. Sinuses: Visualized sinuses and mastoids are clear. IMPRESSION: No acute finding. Dictated by: Kishore Rolle M.D. on 09/23/2020 at 14:52 Approved by: Kishore Rolle M.D. on 09/23/2020 at 14:54 [facility] Narrative Medical decision making narrative: This is a 69-year-old female comes emergency department with complaint of [place] feeling unwell, nausea, headache as well as general abdominal discomfort. Patient appears to have a UTI. She does not appear to be septic. She does have elevated procalcitonin and discussed with patient I would be concerned about possible bacteremia. Patient feels co mfortable returning home but blood cultures were obtained and she is aware these are pending and could potentially come back positive. Her abdominal exam was reassuring. Her renal function was slightly bumped up. She does not have any symptoms consistent with kidney stone so CT abdomen was not obtained. Chest x- ray was negative for pneumonia. Patient did receive a dose of IV antibiotics. Patient I did discuss that Cipro can elevate her INR, she has already appointment scheduled to have it checked on Tuesday. So she will keep this in mind and let her provider no. Discharge Plan Departure Patient Disposition: Home Clinical Impression: Acute UTI (urinary tract infection) Instructions: DI for Urinary Tract Infection (UTI) Activity Restrictions/Additional Instructions: Follow up with your physician in next 24 hours for recheck. Your urine today appears to have a UTI or your infection one of your labs a procalcitonin is elevated but your other labs such as lactate and white count and vital signs today are reassuring. Blood cultures have been obtained and if they are positive you will be contacted to return. These typically take 1-2 days to result. Take antibiotics until completely gone. Prescription was sent to [facility] here in [place] Make sure you are drinking plenty of fluids. Please return for fevers, if her feeling worse, persistent vomiting, new or worsening abdominal or flank pain, lightheadedness or passing out, difficulty or inability urinate, black or bloody stools or other new or concerning symptoms. Prescriptions: New ciprofloxacin HCl 500 mg tablet 500 mg PO Q12H Qty: 20 RF: 0 No Action (DME) Glucose: Test Strips 0 .Route .MEDSUPPLY Qty: 100 RF: 0 (DME) True Metrix Blood Glucose Meter 0 .Route .MEDSUPPLY Qty: 1 RF: 0 metformin [Glucophage] 500 mg tablet 500 mg PO BID Qty: 180 RF: 1 levothyroxine 100 mcg tablet See Rx Instructions .ROUTE .COMPLEX Qty: 90 RF: 0 hydrochlorothiazide 25 mg tablet See Rx Instructions .ROUTE .COMPLEX Qty: 90 RF: 0 warfarin [Coumadin] 5 mg tablet 5 mg PO DAILY Qty: 90 RF: 3 nystatin 100,000 unit/gram powder 1 applictn TOP BID Qty: 60 RF: 1 flecainide 50 mg tablet 50 mg PO BID RF: 0 Lancets 1 ea miscellaneous DIRECTED RF: 0 losartan 50 mg tablet 50 mg PO DAILY RF: 0 Referrals: Aurelio Barry DO [Primary Care Provider] -
== END 2020-09-23 18:00 | disposition home or self-care (01) ==
PROVIDERS: Emergency Provider Emergency Medicine; PCP Family Medicine
DX: N39.0 Urinary tract infection, site not specified (principal); R10.9 Unspecified abdominal pain; R11.0 Nausea; R42 Dizziness and giddiness; Z20.822 Contact with and (suspected) exposure to COVID-19
CPT/HCPCS: 36415; 70450; 71045; 80053; 81001; 82962; 83605; 84145; 84484; 85025; 85610; 87040; 87077; 87086; 87186; 87635; 96365; 99284; C9803; J0696

== ENCOUNTER → 2020-11-06 10:29 | Outpatient (CLI) | payer MEDICARE, SELFPAY ==
[2020-11-06 11:56] LABS: Add Manual Diff / Slide Review NO; Basophils Absolute Auto 100 /uL (0-100); Basophils Percent Auto 0.9 % (0-2); Eosinophils Absolute Auto 100 /uL (0-450); Eosinophils Percent Auto 1.9 % (2-4); Hematocrit 36.5 % (36-46); Hemoglobin 12.3 g/dL (12.0-16.0); Lymphocytes Absolute Auto 1700 /uL (1100-4500); Lymphocytes Percent Auto 21.9 % (25-40); Mean Corpuscular HGB Conc 33.8 % (30-36); Mean Corpuscular Hemoglobin 29.1 PG (26-34); Mean Corpuscular Volume 86.2 fL (80-100); Monocytes Absolute Auto 800 /uL (0-900); Monocytes Percent Auto 9.5 % (3-14); Neutrophils Absolute Auto 5200 /uL (1500-7000); Neutrophils Percent Auto 65.8 % (50-75); Platelet Count 351 X10^3/uL (150-400); Red Blood Cell Count 4.24 X10^6/uL (4.0-5.2); Red Cell Distribution Width 13.8 % (11.6-14.8); White Blood Cell Count 7.9 X10^3/uL (4.5-11.0)
[2020-11-06 12:14] LABS: Alanine Aminotransferase 14 IU/L (<35); Albumin 4.6 g/dL (3.5-5.0); Albumin Globulin Ratio 1.4 (1.0-2.8); Alkaline Phosphatase 85 U/L (38-126); Aspartate Aminotransferase 21 IU/L (14-36); BUN Creatinine Ratio 21.1 (6-22); Bilirubin Total 0.4 mg/dL (0.2-1.3); Blood Urea Nitrogen 34 mg/dL (7-17); Calcium 9.8 mg/dL (8.4-10.2); Carbon Dioxide 29 mmol/L (22-32); Chloride 105 mmol/L (98-107); Cholesterol 267 mg/dL (140-199); Estimated Glomerular Filt Rate 31.5 mL/min (>60); Globulin 3.4 g/dL (1.7-4.1); Glucose 143 mg/dL (80-110); HDL Cholesterol 56 mg/dL (40-60); HEMOLYSIS < 15 (0-50); LDL Cholesterol Calculated 159 mg/dL (<100); Potassium 4.8 mmol/L (3.4-5.1); Sodium 142 mmol/L (137-145); Triglycerides 258 mg/dL (35-150)
[2020-11-06 12:31] LABS: Hemoglobin A1C% w Est Avg Glu 6.1 % (4.0-6.0)
[2020-11-06 12:43] LABS: Free T3, Triiodothyronine Free 2.33 pg/mL (2.77-5.27); Free T4, Direct Thyroxine 1.29 ng/dL (0.78-2.19)
[2020-11-06 12:57] LABS: Thyroid Stimulating Hormone 4.08 uIU/mL (0.47-4.68)
[2020-11-07 12:22] LABS: SARS CoV19 IgG Negative (Negative)
== END ==
PROVIDERS: PCP Family Medicine; Referring Provider Family Medicine; Visit Provider Family Medicine
DX: E03.9 Hypothyroidism, unspecified (principal); E11.9 Type 2 diabetes mellitus without complications; E78.5 Hyperlipidemia, unspecified; I10 Essential (primary) hypertension
CPT/HCPCS: 36415; 80053; 80061; 83036; 84439; 84443; 84481; 85025; 86769

== ENCOUNTER → 2020-12-12 09:05 | Outpatient (CLI) | payer MEDICARE, SELFPAY ==
--- NOTE | 2020-12-12 | DI.RAD.S_ITS ---
PROCEDURE: XR LUMBAR SPINE 2-3V INDICATIONS: Low back and right leg pain TECHNIQUE: 3 views of the lumbar spine were acquired. COMPARISON: None. FINDINGS: Bones: 5 [id number] vertebrae are present. Great 1 anterolisthesis at L4-5. Facet arthrosis at L4 -S1. No vertebral body compression fractures. No suspicious bony lesions. Soft tissues: Overlying bowel gas pattern is normal. No suspicious soft tissue calcifications. IMPRESSION: No acute osseous abnormality. Dictated by: Mario Day M.D. on 12/12/2020 at 10:04 Approved by: Mario Dya M.D. on 12/12/2020 at 10:05
== END ==
PROVIDERS: PCP Family Medicine; Referring Provider Chiropractor; Visit Provider Chiropractor
DX: M54.50 Low back pain, unspecified (principal); M79.604 Pain in right leg; M47.816 Spondylosis without myelopathy or radiculopathy, lumbar region; M47.817 Spondylosis without myelopathy or radiculopathy, lumbosacral region; M43.16 Spondylolisthesis, lumbar region
CPT/HCPCS: 72100

== ENCOUNTER → 2020-12-24 17:32 | Outpatient (CLI) | payer MEDICARE, SELFPAY | PROVIDERS: PCP Family Medicine; Referring Provider Nurse Practitioner Family; Visit Provider Nurse Practitioner Family | DX: R30.9 Painful micturition, unspecified (principal) | CPT/HCPCS: 87077; 87086; 87186 ==

== ENCOUNTER 2021-01-02 12:43 | Emergency (ER) | payer MEDICARE, SELFPAY ==
[2021-01-02] VITALS (31 sets, daily range): BP systolic 131–198; BP diastolic 58–119; PULSE 59–70; RESP 9–28; TEMP 36.7; O2SAT 97–100; BMI 36.0
--- NOTE | 2021-01-02 12:52 | DI.RAD.S_ITS ---
PROCEDURE: XR CHEST 1V INDICATIONS: suspected sepsis TECHNIQUE: One view of the chest was acquired. COMPARISON: [facility], CR, XR CHEST 1V, 09/23/2020, 12:54. FINDINGS: Surgical changes and devices: There is a cardiac pacemaker. Lungs and pleura: Lungs are clear. No pleural effusions or pneumothorax. Mediastinum: Mediastinal contours appear normal. Heart size is normal. Bones and chest wall: No suspicious bony lesions. Overlying soft tissues appear unremarkable. IMPRESSION: No acute cardiopulmonary disease. Dictated by: Jami Dave M.D. on 01/02/2021 at 13:22 Approved by: Jami Dave M.D. on 01/02/2021 at 13:22
[2021-01-02] MEDS: SODIUM CHLORIDE 0.9% 1,000 ML 1000 ML IV ×3 (13:26→17:07)
[2021-01-02 13:29] LABS: COVID19 -Nasal RAPID Negative (Negative)
--- NOTE | 2021-01-02 14:03 | ED_ITS ---
HPI - Weakness <Ben Chung MD - Last Filed: 01/03/21 07:51> General Chief complaint: Weakness Stated complaint: UTI, Not Getting Better/Weak/Dizzy Time Seen by Provider: 01/02/21 13:41 Source: patient Mode of arrival: Wheelchair Limitations: no limitations History of Present Illness HPI Narrative: The patient has been ill for about 1 week. She was seen at the walk-in clinic 1 week ago for UTI symptoms. She was started on Keflex for what turned out to be an E coli UTI that was sensitive to the antibiotic. She is compliant with medications. She arrives here with generalized weakness and total body aches. She has been vomiting. She does headache, sore throat or change in taste or smell. She has no cough, chest discomfort or dyspnea. She has abdominal discomfort with nausea vomiting. She denies diarrhea. She is status post hysterectomy, appendectomy and cholecystectomy. She has undergone colonoscopy previously with no history of chronic GI disease. She has no his tory of small-bowel obstruction. She has a pacemaker placed. She has no chest pain, palpitations, edema or orthopnea. Prior CT revealed a nonobstructing right renal stone. She has never passed a kidney stone. She has hypertension, hyperlipidemia, AFib and renal insufficiency. She is diabetic. Related Data Home Medications Medication Instructions Recorded Confirmed Lancets 1 ea MISCELLANEOUS DIRECTED 01/05/18 12/24/20 flecainide 50 mg tablet 50 mg PO BID 01/05/18 12/24/20 losartan 50 mg tablet 50 mg PO DAILY tab 03/08/19 12/24/20 Cranberry Supplement PO 11/06/20 12/24/20 Previous Rx's Medication Instructions Recorded Glucose: Test Strips #100 each 12/25/18 True Metrix Blood Glucose Meter #1 ea 01/12/19 hydrochlorothiazide 25 mg tablet See Rx Instructions .ROUTE 11/06/20 .COMPLEX #90 tab metformin 500 mg tablet 500 mg PO BID #180 tab 11/06/20 levothyroxine 125 mcg tablet 125 mcg PO DAILY #90 tab 11/26/20 warfarin 5 mg tablet 5 mg PO DAILY #105 tab 12/11/20 Allergies Allergy/AdvReac Type Severity Reaction Status Date / Time codeine AdvReac Mild N/V Verified 01/02/21 12:48 Review of Systems <Ben Chung MD - Last Filed: 01/03/21 07:51> Constitutional Constitutional: Reports body ache(s), Denies chills, Reports fatigue, Denies fever(s), Denies headache(s), Reports malaise and Denies night sweats Eyes Eyes: Denies change in vision ENT Ears, Nose, Mouth, and Throat: Denies vertigo, Denies dizziness, Denies headache(s), Denies mouth pain and Denies sore throat Cardiovascular Cardiovascular: Denies chest pain, Denies rapid heart rate, Denies pedal edema, Denies edema, Denies lightheadedness and Denies dyspnea Respiratory Respiratory: Denies chest congestion, Denies cough and Denies dyspnea Gastrointestinal Gastrointestinal: Reports as per HPI Genitourinary Genitourinary: Denies dysuria and Denies flank pain Musculoskeletal Musculoskeletal: Reports back pain Integumentary/Breasts Skin/Breast: Denies lesions and Denies rash Neurologic Neurologic: Denies confusion, Denies vertigo, Denies dizziness and Denies headache(s) Psychiatric Psychiatric: Denies confusion Endocrine Endocrine: Reports fatigue Hematologic/Lymphatic On Anticoagulants: Yes Patient History <Ben Chung MD - Last Filed: 01/03/21 07:51> Medical History Bilateral lower extremity edema Candidal intertrigo Diabetes Flu-like symptoms HTN (hypertension) Hyperlipidemia Hypothyroidism (acquired) Pelvic somatic dysfunction Sacral region somatic dysfunction Segmental and somatic dysfunction of abdomen and other regions Segmental and somatic dysfunction of rib cage Somatic dysfunction of lower extremity Warfarin anticoagulation Surgical History History of tonsillectomy Status post appendectomy Status post cholecystectomy Family History Father Hypertension Mother Hypertension Stroke Social History Smoking Status: Never smoker Smoking Status: Never smoker alcohol intake frequency: holidays/special occasions only Substance Use Type: does not use Exam <Ben Chung MD - Last Filed: 01/03/21 07:51> Initial Vital Signs Initial Vital Signs: Vital Signs Temperature 98.1 F 01/02/21 12:48 Pulse Rate 60 01/02/21 12:48 Respiratory Rate 15 01/02/21 12:48 Blood Pressure 131/60 01/02/21 12:48 Pulse Oximetry 98 01/02/21 12:48 Const General: cooperative and healthy appearing [facility] Head: normal to inspection, normocephalic and atraumatic Face and sinus: normal facial exam and sinuses nontender Throat: posterior oropharynx normal Eyes Conjunctivae: conjunctivae normal Sclera: sclerae normal (No icterus) Cornea: corneas normal Pupils: PERRL EOM: EOM intact bilaterally Neck Neck: full ROM, supple and No tender Resp Auscultation: clear to auscultation bilaterally Cardio Rate: regular rate Rhythm: regular rhythm Heart Sounds: S1 normal, S2 normal, no murmurs and no rubs GI Inspection: normal to inspection and non-distended Palpation: soft, No mass and No tender Auscultation: normal bowel sounds Back/Spine/Pelvis Other: Mild low back pain, not consistent with CVAT. Skin General: no rashes or lesions noted Neuro General: patient alert, patient awake, patient oriented x3 and no focal motor deficits Motor: muscle tone normal throughout Extrem General: normal to inspection, no pedal edema and no calf tenderness Psych Mental Status: mental status grossly normal <Liz Charles MD - Last Filed: 01/03/21 06:23> Initial Vital Signs Initial Vital Signs: Vital Signs Temperature 98.1 F 01/02/21 12:48 Pulse Rate 60 01/02/21 12:48 Respiratory Rate 15 01/02/21 12:48 Blood Pressure 131/60 01/02/21 12:48 Pulse Oximetry 98 01/02/21 12:48 Course <Ben Chung MD - Last Filed: 01/03/21 07:51> Course Course Narrative: The patient has significant acute on chronic renal failure. She is status post cholecystectomy, and has pancreatitis. CT of the abdomen revealed no probable cause to either into the. She is improving with IV hydration. Her creatinine is improving. She is making urine. Her abdominal discomfort and nausea have improved. I have discussed admission with the hospitalist, Dr. Landeros. Nephrology and dialysis are unavailable this facility, Dr. Landeros is asking for the patient be transferred elsewhere. The case has been discussed with the incoming your doctor, Dr. Charles. Dr. Charles will assume care and pursue disposition. Fortunately the patient seems to be improving, decreased abdominal pain and nausea, improving labs. She has good urine output. Orders Ordered: Discontinued Medications Sodium Chloride (Normal Saline 0.9%) 1,000 mls @ 1,000 mls/hr IV BOLUS ONE Stop: 01/02/21 13:51 Last Infusion: 01/02/21 14:39 Dose: 0 mls/hr Documented by: Admin: 01/02/21 13:26 Dose: 1,000 mls/hr Documented by: IGLESIA Sodium Chloride (Normal Saline 0.9%) 1,000 mls @ 1,000 mls/hr IV BOLUS ONE Stop: 01/02/21 15:46 Last Infusion: 01/02/21 16:51 Dose: 0 mls/hr Documented by: Admin: 01/02/21 14:51 Dose: 1,000 mls/hr Documented by: YANI Sodium Chloride (Normal Saline 0.9%) 1,000 mls @ 1,000 mls/hr IV BOLUS ONE Stop: 01/02/21 18:04 Last Infusion: 01/02/21 19:01 Dose: 0 mls/hr Documented by: Admin: 01/02/21 17:07 Dose: 1,000 mls/hr Documented by: YANI Sodium Chloride (Normal Saline 0.9%) 1,000 mls @ 150 mls/hr IV CONT GARRETT Last Infusion: 01/03/21 02:42 Dose: 0 mls/hr Documented by: Admin: 01/02/21 20:14 Dose: 150 mls/hr Documented by: KOOJ Vital Signs Vital signs: Vital Signs - 8 hr 01/03/21 00:00 01/03/21 00:18 01/03/21 00:30 Temperature Pulse Rate 61 62 60 Respiratory Rate 23 15 12 Blood Pressure 134/62 139/59 L 134/61 Pulse Oximetry 99 98 01/03/21 01:00 01/03/21 01:01 01/03/21 01:30 Temperature Pulse Rate 62 63 60 Respiratory Rate 10 L 13 30 H Blood Pressure 131/95 H Pulse Oximetry 98 98 95 01/03/21 02:00 01/03/21 02:30 01/03/21 03:00 Temperature Pulse Rate 59 L 60 61 Respiratory Rate 22 13 10 L Blood Pressure 151/60 H 133/60 Pulse Oximetry 93 98 98 01/03/21 03:30 Temperature 98.2 F Pulse Rate 60 Respiratory Rate 11 L Blood Pressure Pulse Oximetry 100 <Liz Charles MD - Last Filed: 01/03/21 06:23> Orders Ordered: Discontinued Medications Sodium Chloride (Normal Saline 0.9%) 1,000 mls @ 1,000 mls/hr IV BOLUS ONE Stop: 01/02/21 13:51 Last Infusion: 01/02/21 14:39 Dose: 0 mls/hr Documented by: Admin: 01/02/21 13:26 Dose: 1,000 mls/hr Documented by: IGLESIA Sodium Chloride (Normal Saline 0.9%) 1,000 mls @ 1,000 mls/hr IV BOLUS ONE Stop: 01/02/21 15:46 Last Infusion: 01/02/21 16:51 Dose: 0 mls/hr Documented by: Admin: 01/02/21 14:51 Dose: 1,000 mls/hr Documented by: MALLORYS Sodium Chloride (Normal Saline 0.9%) 1,000 mls @ 1,000 mls/hr IV BOLUS ONE Stop: 01/02/21 18:04 Last Infusion: 01/02/21 19:01 Dose: 0 mls/hr Documented by: Admin: 01/02/21 17:07 Dose: 1,000 mls/hr Documented by: MALLORYS Sodium Chloride (Normal Saline 0.9%) 1,000 mls @ 150 mls/hr IV CONT GARRETT Last Infusion: 01/03/21 02:42 Dose: 0 mls/hr Documented by: Admin: 01/02/21 20:14 Dose: 150 mls/hr Documented by: KOJO Vital Signs Vital signs: Vital Signs - 8 hr 01/03/21 00:00 01/03/21 00:18 01/03/21 00:30 Temperature Pulse Rate 61 62 60 Respiratory Rate 23 15 12 Blood Pressure 134/62 139/59 L 134/61 Pulse Oximetry 99 98 01/03/21 01:00 01/03/21 01:01 01/03/21 01:30 Temperature Pulse Rate 62 63 60 Respiratory Rate 10 L 13 30 H Blood Pressure 131/95 H Pulse Oximetry 98 98 95 01/03/21 02:00 01/03/21 02:30 01/03/21 03:00 Temperature Pulse Rate 59 L 60 61 Respiratory Rate 22 13 10 L Blood Pressure 151/60 H 133/60 Pulse Oximetry 93 98 98 01/03/21 03:30 Temperature 98.2 F Pulse Rate 60 Respiratory Rate 11 L Blood Pressure Pulse Oximetry 100 MDM - Weakness <Ben Chung MD - Last Filed: 01/03/21 07:51> Lab Data Result diagrams: 01/02/21 14:00 01/02/21 18:28 Labs: Lab Results 01/02/21 01/02/21 01/02/21 Range/Units 12:53 14:00 14:00 WBC 10.2 (4.5-11.0) X10^3/uL RBC 3.97 L (4.0-5.2) X10^6/uL Hgb 11.5 L (12.0-16.0) g/dL Hct 33.2 L (36-46) % MCV 83.8 (80-100) fL MCH 29.0 (26-34) PG MCHC 34.6 (30-36) % RDW 13.0 (11.6-14.8) % Plt Count 394 (150-400) X10^3/uL Neut % (Auto) 88.4 H (50-75) % Lymph % (Auto) 7.1 L (25-40) % [place] % (Auto) 4.4 (3-14) % Eos % (Auto) 0.0 L (2-4) % Baso % (Auto) 0.1 (0-2) % Neut # (Auto) 9000 H (1360-9614) /uL Lymph # (Auto) 700 L (1928-3296) /uL [place] # (Auto) 400 (0-900) /uL Eos # (Auto) 0 (0-450) /uL Baso # (Auto) 0 (0-100) /uL PT 40.5 H (10.1-12.7) SECONDS INR 3.5 H (0.9-1.3) APTT 58 H (26.4-36.2) SECONDS Sodium (137-145) mmol/L Potassium (3.4-5.1) mmol/L Chloride (98-107) mmol/L Carbon Dioxide (22-32) mmol/L BUN (7-17) mg/dL Creatinine (0.52-1.04) mg/dL Estimated GFR (>60) mL/min BUN/Creatinine Ratio (6-22) Glucose (80-110) mg/dL Lactate (0.7-2.1) mmol/L Calcium (8.4-10.2) mg/dL Total Bilirubin (0.2-1.3) mg/dL AST (14-36) IU/L ALT (<35) IU/L Alkaline Phosphatase (38-126) U/L Total Protein (6.3-8.2) g/dL Albumin (3.5-5.0) g/dL Globulin (1.7-4.1) g/dL Albumin/Globulin Ratio (1.0-2.8) Lipase (23-300) U/L Procalcitonin (<0.5) ng/mL Urine RBC (0-5/HPF) Urine WBC (0-5/HPF) Ur Squamous Epith Cells (0-5/HPF) Ur Transition Epith Cell (0-5/HPF) Ur Renal Epithelial Cell (0-1/HPF) Urine Bacteria (None) Ur Culture Indicated? SARS-CoV-2 (PCR) Negative (Negative) 01/02/21 01/02/21 01/02/21 Range/Units 14:00 14:00 15:02 WBC (4.5-11.0) X10^3/uL RBC (4.0-5.2) X10^6/uL Hgb (12.0-16.0) g/dL Hct (36-46) % MCV (80-100) fL MCH (26-34) PG MCHC (30-36) % RDW (11.6-14.8) % Plt Count (150-400) X10^3/uL Neut % (Auto) (50-75) % Lymph % (Auto) (25-40) % [place] % (Auto) (3-14) % Eos % (Auto) (2-4) % Baso % (Auto) (0-2) % Neut # (Auto) (1764-5222) /uL Lymph # (Auto) (8496-1042) /uL [place] # (Auto) (0-900) /uL Eos # (Auto) (0-450) /uL Baso # (Auto) (0-100) /uL PT (10.1-12.7) SECONDS INR (0.9-1.3) APTT (26.4-36.2) SECONDS Sodium 130 L (137-145) mmol/L Potassium 5.5 H (3.4-5.1) mmol/L Chloride 96 L (98-107) mmol/L Carbon Dioxide 11 L (22-32) mmol/L BUN 188 H* (7-17) mg/dL Creatinine 9.11 H* (0.52-1.04) mg/dL Estimated GFR 4.3 L (>60) mL/min BUN/Creatinine Ratio 20.6 (6-22) Glucose 157 H (80-110) mg/dL Lactate 0.9 (0.7-2.1) mmol/L Calcium 9.3 (8.4-10.2) mg/dL Total Bilirubin 0.2 (0.2-1.3) mg/dL AST 20 (14-36) IU/L ALT 8 (<35) IU/L Alkaline Phosphatase 63 (38-126) U/L Total Protein 7.5 (6.3-8.2) g/dL Albumin 4.4 (3.5-5.0) g/dL Globulin 3.1 (1.7-4.1) g/dL Albumin/Globulin Ratio 1.4 (1.0-2.8) Lipase 1195 H (23-300) U/L Procalcitonin 0.24 (<0.5) ng/mL Urine RBC 1-5/hpf (0-5/HPF) Urine WBC 5-10/hpf H (0-5/HPF) Ur Squamous Epith Cells 1-5 /hpf (0-5/HPF) Ur Transition Epith Cell 1-5/hpf (0-5/HPF) Ur Renal Epithelial Cell 0-1/hpf (0-1/HPF) Urine Bacteria Few (2-10) H (None) Ur Culture Indicated? Specimen cultured SARS-CoV-2 (PCR) (Negative) 01/02/21 Range/Units 18:28 WBC (4.5-11.0) X10^3/uL RBC (4.0-5.2) X10^6/uL Hgb (12.0-16.0) g/dL Hct (36-46) % MCV (80-100) fL MCH (26-34) PG MCHC (30-36) % RDW (11.6-14.8) % Plt Count (150-400) X10^3/uL Neut % (Auto) (50-75) % Lymph % (Auto) (25-40) % [place] % (Auto) (3-14) % Eos % (Auto) (2-4) % Baso % (Auto) (0-2) % Neut # (Auto) (7207-5041) /uL Lymph # (Auto) (8697-5726) /uL [place] # (Auto) (0-900) /uL Eos # (Auto) (0-450) /uL Baso # (Auto) (0-100) /uL PT (10.1-12.7) SECONDS INR (0.9-1.3) APTT (26.4-36.2) SECONDS Sodium 133 L (137-145) mmol/L Potassium 4.7 (3.4-5.1) mmol/L Chloride 102 (98-107) mmol/L Carbon Dioxide 11 L (22-32) mmol/L BUN 172 H* (7-17) mg/dL Creatinine 8.01 H* (0.52-1.04) mg/dL Estimated GFR 4.9 L (>60) mL/min BUN/Creatinine Ratio 21.5 (6-22) Glucose 112 H (80-110) mg/dL Lactate (0.7-2.1) mmol/L Calcium 8.6 (8.4-10.2) mg/dL Total Bilirubin 0.2 (0.2-1.3) mg/dL AST 19 (14-36) IU/L ALT 8 (<35) IU/L Alkaline Phosphatase 57 (38-126) U/L Total Protein 6.9 (6.3-8.2) g/dL Albumin 4.0 (3.5-5.0) g/dL Globulin 2.9 (1.7-4.1) g/dL Albumin/Globulin Ratio 1.4 (1.0-2.8) Lipase 1391 H (23-300) U/L Procalcitonin (<0.5) ng/mL Urine RBC (0-5/HPF) Urine WBC (0-5/HPF) Ur Squamous Epith Cells (0-5/HPF) Ur Transition Epith Cell (0-5/HPF) Ur Renal Epithelial Cell (0-1/HPF) Urine Bacteria (None) Ur Culture Indicated? SARS-CoV-2 (PCR) (Negative) Urine Dip Bedside Urine Glucose Negative Bedside Urine Bilirubin - Negative Bedside Urine Ketone - Negative Urine Specific [place] 1.015 Bedside Urine Occult Blood - Negative Bedside Urine pH 6.0 Bedside Urine Protein + 30 Bedside Urine Urobilinogen - Negative Bedside Urine Nitrite - Negative Bedside Urine Leukocytes - Negative Esterase Imaging Data Chest x-ray: Radiologist Impression: No acute cardiopulmonary process CT scan - abdomen/pelvis: Radiologist Impression: Nonobstructing right renal stone. Status post cholecystectomy. No specific findings of acute pancreatitis. ECG Data Attestation: I personally reviewed and interpreted this ECG as follows: (Paced rhythm rate 60 beats per minute. No acute changes.) <Liz Charles MD - Last Filed: 01/03/21 06:23> Lab Data Labs: Lab Results 01/02/21 01/02/21 01/02/21 Range/Units 12:53 14:00 14:00 WBC 10.2 (4.5-11.0) X10^3/uL RBC 3.97 L (4.0-5.2) X10^6/uL Hgb 11.5 L (12.0-16.0) g/dL Hct 33.2 L (36-46) % MCV 83.8 (80-100) fL MCH 29.0 (26-34) PG MCHC 34.6 (30-36) % RDW 13.0 (11.6-14.8) % Plt Count 394 (150-400) X10^3/uL Neut % (Auto) 88.4 H (50-75) % Lymph % (Auto) 7.1 L (25-40) % [place] % (Auto) 4.4 (3-14) % Eos % (Auto) 0.0 L (2-4) % Baso % (Auto) 0.1 (0-2) % Neut # (Auto) 9000 H (3296-2769) /uL Lymph # (Auto) 700 L (7839-8444) /uL [place] # (Auto) 400 (0-900) /uL Eos # (Auto) 0 (0-450) /uL Baso # (Auto) 0 (0-100) /uL PT 40.5 H (10.1-12.7) SECONDS INR 3.5 H (0.9-1.3) APTT 58 H (26.4-36.2) SECONDS Sodium (137-145) mmol/L Potassium (3.4-5.1) mmol/L Chloride (98-107) mmol/L Carbon Dioxide (22-32) mmol/L BUN (7-17) mg/dL Creatinine (0.52-1.04) mg/dL Estimated GFR (>60) mL/min BUN/Creatinine Ratio (6-22) Glucose (80-110) mg/dL Lactate (0.7-2.1) mmol/L Calcium (8.4-10.2) mg/dL Total Bilirubin (0.2-1.3) mg/dL AST (14-36) IU/L ALT (<35) IU/L Alkaline Phosphatase (38-126) U/L Total Protein (6.3-8.2) g/dL Albumin (3.5-5.0) g/dL Globulin (1.7-4.1) g/dL Albumin/Globulin Ratio (1.0-2.8) Lipase (23-300) U/L Procalcitonin (<0.5) ng/mL Urine RBC (0-5/HPF) Urine WBC (0-5/HPF) Ur Squamous Epith Cells (0-5/HPF) Ur Transition Epith Cell (0-5/HPF) Ur Renal Epithelial Cell (0-1/HPF) Urine Bacteria (None) Ur Culture Indicated? SARS-CoV-2 (PCR) Negative (Negative) 01/02/21 01/02/21 01/02/21 Range/Units 14:00 14:00 15:02 WBC (4.5-11.0) X10^3/uL RBC (4.0-5.2) X10^6/uL Hgb (12.0-16.0) g/dL Hct (36-46) % MCV (80-100) fL MCH (26-34) PG MCHC (30-36) % RDW (11.6-14.8) % Plt Count (150-400) X10^3/uL Neut % (Auto) (50-75) % Lymph % (Auto) (25-40) % [place] % (Auto) (3-14) % Eos % (Auto) (2-4) % Baso % (Auto) (0-2) % Neut # (Auto) (4873-2811) /uL Lymph # (Auto) (2138-1309) /uL [place] # (Auto) (0-900) /uL Eos # (Auto) (0-450) /uL Baso # (Auto) (0-100) /uL PT (10.1-12.7) SECONDS INR (0.9-1.3) APTT (26.4-36.2) SECONDS Sodium 130 L (137-145) mmol/L Potassium 5.5 H (3.4-5.1) mmol/L Chloride 96 L (98-107) mmol/L Carbon Dioxide 11 L (22-32) mmol/L BUN 188 H* (7-17) mg/dL Creatinine 9.11 H* (0.52-1.04) mg/dL Estimated GFR 4.3 L (>60) mL/min BUN/Creatinine Ratio 20.6 (6-22) Glucose 157 H (80-110) mg/dL Lactate 0.9 (0.7-2.1) mmol/L Calcium 9.3 (8.4-10.2) mg/dL Total Bilirubin 0.2 (0.2-1.3) mg/dL AST 20 (14-36) IU/L ALT 8 (<35) IU/L Alkaline Phosphatase 63 (38-126) U/L Total Protein 7.5 (6.3-8.2) g/dL Albumin 4.4 (3.5-5.0) g/dL Globulin 3.1 (1.7-4.1) g/dL Albumin/Globulin Ratio 1.4 (1.0-2.8) Lipase 1195 H (23-300) U/L Procalcitonin 0.24 (<0.5) ng/mL Urine RBC 1-5/hpf (0-5/HPF) Urine WBC 5-10/hpf H (0-5/HPF) Ur Squamous Epith Cells 1-5 /hpf (0-5/HPF) Ur Transition Epith Cell 1-5/hpf (0-5/HPF) Ur Renal Epithelial Cell 0-1/hpf (0-1/HPF) Urine Bacteria Few (2-10) H (None) Ur Culture Indicated? Specimen cultured SARS-CoV-2 (PCR) (Negative) 01/02/21 Range/Units 18:28 WBC (4.5-11.0) X10^3/uL RBC (4.0-5.2) X10^6/uL Hgb (12.0-16.0) g/dL Hct (36-46) % MCV (80-100) fL MCH (26-34) PG MCHC (30-36) % RDW (11.6-14.8) % Plt Count (150-400) X10^3/uL Neut % (Auto) (50-75) % Lymph % (Auto) (25-40) % [place] % (Auto) (3-14) % Eos % (Auto) (2-4) % Baso % (Auto) (0-2) % Neut # (Auto) (7366-2756) /uL Lymph # (Auto) (6307-0263) /uL [place] # (Auto) (0-900) /uL Eos # (Auto) (0-450) /uL Baso # (Auto) (0-100) /uL PT (10.1-12.7) SECONDS INR (0.9-1.3) APTT (26.4-36.2) SECONDS Sodium 133 L (137-145) mmol/L Potassium 4.7 (3.4-5.1) mmol/L Chloride 102 (98-107) mmol/L Carbon Dioxide 11 L (22-32) mmol/L BUN 172 H* (7-17) mg/dL Creatinine 8.01 H* (0.52-1.04) mg/dL Estimated GFR 4.9 L (>60) mL/min BUN/Creatinine Ratio 21.5 (6-22) Glucose 112 H (80-110) mg/dL Lactate (0.7-2.1) mmol/L Calcium 8.6 (8.4-10.2) mg/dL Total Bilirubin 0.2 (0.2-1.3) mg/dL AST 19 (14-36) IU/L ALT 8 (<35) IU/L Alkaline Phosphatase 57 (38-126) U/L Total Protein 6.9 (6.3-8.2) g/dL Albumin 4.0 (3.5-5.0) g/dL Globulin 2.9 (1.7-4.1) g/dL Albumin/Globulin Ratio 1.4 (1.0-2.8) Lipase 1391 H (23-300) U/L Procalcitonin (<0.5) ng/mL Urine RBC (0-5/HPF) Urine WBC (0-5/HPF) Ur Squamous Epith Cells (0-5/HPF) Ur Transition Epith Cell (0-5/HPF) Ur Renal Epithelial Cell (0-1/HPF) Urine Bacteria (None) Ur Culture Indicated? SARS-CoV-2 (PCR) (Negative) Urine Dip Bedside Urine Glucose Negative Bedside Urine Bilirubin - Negative Bedside Urine Ketone - Negative Urine Specific [place] 1.015 Bedside Urine Occult Blood - Negative Bedside Urine pH 6.0 Bedside Urine Protein + 30 Bedside Urine Urobilinogen - Negative Bedside Urine Nitrite - Negative Bedside Urine Leukocytes - Negative Esterase Imaging Data Chest x-ray: Radiologist Impression: No acute cardiopulmonary process FINDINGS:? ? Surgical changes and devices:? There is a cardiac pacemaker.? ? Lungs and pleura:? Lungs are clear.? No pleural effusions or pneumothorax.? ? Mediastinum:? Mediastinal contours appear normal.? Heart size is normal.? ? Bones and chest wall:? No suspicious bony lesions.? Overlying soft tissues appear unremarkable.? ? IMPRESSION:? No acute cardiopulmonary disease. ? ? Dictated by: Jami Dave M.D. on 01/02/2021 at 13:22 ? ? CT scan - abdomen/pelvis: Radiologist Impression: Nonobstructing right renal stone. Status post cholecystectomy. No specific findings of acute pancreatitis. FINDINGS: ABDOMEN:? Lung bases:? No acute findings. Heart:? No pericardial effusion. Normal in size.? Mild coronary artery calcifications. ? Liver: Normal. Gallbladder:? Not seen either decompressed or surgically absent. Bile ducts: Normal. Pancreas: Normal.? Spleen: Normal.? Adrenals: Normal. Kidneys and Ureters:? 4 mm nonobstructive right renal calculus.? Age- indeterminate bilateral perinephric stranding.? No hydronephrosis.? No left-sided urolithiasis identified.? The ureters appear decompressed. Stomach and duodenum:? Small hiatal hernia. Bowel:? No evidence of bowel obstruction.? Scattered colonic diverticula noted. Appendix is not clearly identified however no suspicious pericecal inflammatory changes are seen. Other:? No free fluid or air.? Abdominal nodes:? Normal. Aorta and IVC: Normal in size.? ? Scattered atheromatous calcifications in the aorta.? Ventral wall: Normal. ? PELVIS:? ? Bladder and reproductive: Unremarkable.? Inguinal region: No hernia.? Pelvic nodes: Normal.? ? Bones:? No suspicious bony lesions.? No vertebral body compression fractures. Diffuse spondylytic changes and facet disease.? There is diffuse osteopenia. ? IMPRESSION:? ? Nonobstructive right renal calculus. ? Grossly unremarkable CT appearance of the pancreas although this does not exclude acute pancreatitis and correlate to pancreatic enzymes.? No evidence of abscess or peripancreatic fluid collection. ? Small hiatal hernia ? Additional chronic and incidental findings as above.? ? ? Dictated by: Miles Huitron M.D. on 01/02/2021 at 15:21 ? ? US - abdomen: Radiologist Impression: FINDINGS: ? Liver:? Homogeneous slightly echogenic echotexture.? No evidence of focal mass lesion.? No intra hepatic biliary ductal dilatation ? Gallbladder:? Cholecystectomy ? Common Bile Duct:? 8.3 mm. ? Pancreas:? Not well visualized ? IMPRESSION: ? 1. Nonvisualized pancreas 2. Cholecystectomy 3. Hepatic fatty infiltration ? Approved by: Ck Marie M.D. on 01/02/2021 at 17:08? [facility] Narrative Medical decision making narrative: 70-year-old woman with UTI diagnosed a week ago started on Keflex continued malaise and nausea presents today with acute renal failure and elevated lipase. CT scan does not suggest acute pancreatitis and she does not have significant left upper quadrant tenderness. Baseline creatinine is in the 1.2-1.5 range and initial creatinine on arrival today is 9.1 with potassium at 5.5. She is paced secondary to atrial fibrillation is on flecainide and Coumadin with an INR of 3.5. Urine culture from 12/24 does show E coli that was sensitive to 1st generation cephalosporins. Today white count is not elevated lactic acid is not elevated does not look like her urinary tract infection continues and she does not appear to be septic. Lipase is slightly elevated with no corresponding left upper quadrant tenderness. CT scan does not show acute pancreatitis. Unclear if this is actually true pancreatitis verses transient elevation of lipase and will need clinical follow-up. With her acute renal failure and creatinine at 9.1 she needs transfer to hospital with nephrology consultation. Unfortunately [facility], [facility] in [place] and [facility] all have no beds available this evening. All suggested that we call back tomorrow to see if beds might be available at that time. Spoke with Dr. Adrian Boyer, hospitalist at [facility], willing to accept patient within beds are available. [facility] return phone call at 2:[address] Diaz, hospitalist they have immediate bed availability. patient was accepted by Dr. Diaz and will be transferred to [facility] for continued treatment of her acute renal failure and elevated lipase. Critical Care Time <Ben Chung MD - Last Filed: 01/03/21 07:51> Critical Care Time Critical Care Time: Yes Total Critical Care Time: 60 Attestation: Critical care time included review of the records, initial session the patient, in review of lab, and radiologic data. The patient was updated on the situation several times. My time also included discussion with the hospitalist at this facility, as well as by ER partner, prior to eventual transfer of the patient. Discharge Plan Departure Patient Disposition: 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 Acute pancreatitis Qualifiers: Pancreatitis type: other Acute pancreatitis complication: unspecified Qualified Code(s): K85.80 - Other acute pancreatitis without necrosis or infection Prescriptions: No Action (DME) Glucose: Test Strips 0 .Route .MEDSUPPLY Qty: 100 RF: 0 (DME) True Metrix Blood Glucose Meter 0 .Route .MEDSUPPLY Qty: 1 RF: 0 levothyroxine 125 mcg tablet 125 mcg PO DAILY Qty: 90 RF: 1 warfarin 5 mg tablet 5 mg PO DAILY Qty: 105 RF: 1 Cranberry Supplement PO RF: 0 hydrochlorothiazide 25 mg tablet See Rx Instructions .ROUTE .COMPLEX Qty: 90 RF: 3 metformin 500 mg tablet 500 mg PO BID Qty: 180 RF: 1 flecainide 50 mg tablet 50 mg PO BID RF: 0 Lancets 1 ea miscellaneous DIRECTED RF: 0 losartan 50 mg tablet 50 mg PO DAILY RF: 0 Referrals: Aurelio Barry DO [Primary Care Provider] -
[2021-01-02 14:20] LABS: Add Manual Diff / Slide Review NO; Basophils Absolute Auto 0 /uL (0-100); Basophils Percent Auto 0.1 % (0-2); Eosinophils Absolute Auto 0 /uL (0-450); Hematocrit 33.2 % (36-46); Hemoglobin 11.5 g/dL (12.0-16.0); Lymphocytes Absolute Auto 700 /uL (1100-4500); Lymphocytes Percent Auto 7.1 % (25-40); Mean Corpuscular HGB Conc 34.6 % (30-36); Mean Corpuscular Volume 83.8 fL (80-100); Monocytes Absolute Auto 400 /uL (0-900); Monocytes Percent Auto 4.4 % (3-14); Neutrophils Absolute Auto 9000 /uL (1500-7000); Neutrophils Percent Auto 88.4 % (50-75); Platelet Count 394 X10^3/uL (150-400); Red Blood Cell Count 3.97 X10^6/uL (4.0-5.2); White Blood Cell Count 10.2 X10^3/uL (4.5-11.0)
[2021-01-02 14:25] LABS: INR 3.5 (0.9-1.3); Prothrombin Time 40.5 SECONDS (10.1-12.7)
[2021-01-02 14:28] LABS: PTT Partial Thromboplastin Tim 58 SECONDS (26.4-36.2)
[2021-01-02 14:35] LABS: Alanine Aminotransferase 8 IU/L (<35); Albumin 4.4 g/dL (3.5-5.0); Albumin Globulin Ratio 1.4 (1.0-2.8); Alkaline Phosphatase 63 U/L (38-126); Aspartate Aminotransferase 20 IU/L (14-36); Bilirubin Total 0.2 mg/dL (0.2-1.3); Calcium 9.3 mg/dL (8.4-10.2); Carbon Dioxide 11 mmol/L (22-32); Chloride 96 mmol/L (98-107); Globulin 3.1 g/dL (1.7-4.1); Glucose 157 mg/dL (80-110); HEMOLYSIS < 15 (0-50); Lipase 1195 U/L (23-300); Sodium 130 mmol/L (137-145); Total Protein 7.5 g/dL (6.3-8.2)
[2021-01-02 14:37] LABS: Lactate (Lactic Acid) 0.9 mmol/L (0.7-2.1)
[2021-01-02 14:39] LABS: Potassium 5.5 mmol/L (3.4-5.1)
[2021-01-02 14:46] LABS: Estimated Glomerular Filt Rate 4.3 mL/min (>60)
[2021-01-02 14:49] LABS: BUN Creatinine Ratio 20.6 (6-22)
[2021-01-02 14:52] LABS: Blood Urea Nitrogen 188 mg/dL (7-17); Procalcitonin 0.24 ng/mL (<0.5)
--- NOTE | 2021-01-02 15:07 | DI.CT.S_ITS ---
PROCEDURE: CT ABDOMEN PELVIS WO CON INDICATIONS: Pancreatitis. Renal failure. TECHNIQUE: Noncontrast 5 mm thick sections acquired from the diaphragms to the symphysis. 5 mm coronal and sagittal reformats were then performed. For radiation dose reduction, the following was used: automated exposure control, adjustment of mA and/or kV according to patient size. COMPARISON: None. FINDINGS: ABDOMEN: Lung bases: No acute findings. Heart: No pericardial effusion. Normal in size. Mild coronary artery calcifications. Liver: Normal. Gallbladder: Not seen either decompressed or surgically absent. Bile ducts: Normal. Pancreas: Normal. Spleen: Normal. Adrenals: Normal. Kidneys and Ureters: 4 mm nonobstructive right renal calculus. Age-indeterminate bilateral perinephric stranding. No hydronephrosis. No left-sided urolithiasis identified. The ureters appear decompressed. Stomach and duodenum: Small hiatal hernia. Bowel: No evidence of bowel obstruction. Scattered colonic diverticula noted. Appendix is not clearly identified however no suspicious pericecal inflammatory changes are seen. Other: No free fluid or air. Abdominal nodes: Normal. Aorta and IVC: Normal in size. Scattered atheromatous calcifications in the aorta. Ventral wall: Normal. PELVIS: Bladder and reproductive: Unremarkable. Inguinal region: No hernia. Pelvic nodes: Normal. Bones: No suspicious bony lesions. No vertebral body compression fractures. Diffuse spondylytic changes and facet disease. There is diffuse osteopenia. IMPRESSION: Nonobstructive right renal calculus. Grossly unremarkable CT appearance of the pancreas although this does not exclude acute pancreatitis and correlate to pancreatic enzymes. No evidence of abscess or peripancreatic fluid collection. Small hiatal hernia Additional chronic and incidental findings as above. Dictated by: Miles Huitron M.D. on 01/02/2021 at 15:21 Approved by: Miles Huitron M.D. on 01/02/2021 at 15:25
[2021-01-02 16:29] LABS: Bacteria Urine Few (2-10); Culture Indicated Urine Specimen Cultured; RBC Urine 1-5/HPF (0-5/HPF); Renal Epithelial Cells Urine 0-1/HPF (0-1/HPF); Squamous Epithelial Cell Urine 1-5 /HPF (0-5/HPF); Transitional Epi Cells Urine 1-5/HPF (0-5/HPF); WBC Urine 5-10/HPF (0-5/HPF)
--- NOTE | 2021-01-02 16:37 | DI.US.S_ITS ---
PROCEDURE: US ABDOMEN LIMITED INDICATIONS: Pancreatitis TECHNIQUE: Real-time scanning was performed of the abdominal and retroperitoneal organs, with image documentation. COMPARISON: None. FINDINGS: Liver: Homogeneous slightly echogenic echotexture. No evidence of focal mass lesion. No intra hepatic biliary ductal dilatation Gallbladder: Cholecystectomy Common Bile Duct: 8.3 mm. Pancreas: Not well visualized IMPRESSION: 1. Nonvisualized pancreas 2. Cholecystectomy 3. Hepatic fatty infiltration Approved by: Ck Marie M.D. on 01/02/2021 at 17:08
[2021-01-02 18:47] LABS: Alanine Aminotransferase 8 IU/L (<35); Albumin Globulin Ratio 1.4 (1.0-2.8); Alkaline Phosphatase 57 U/L (38-126); Aspartate Aminotransferase 19 IU/L (14-36); Bilirubin Total 0.2 mg/dL (0.2-1.3); Calcium 8.6 mg/dL (8.4-10.2); Carbon Dioxide 11 mmol/L (22-32); Chloride 102 mmol/L (98-107); Estimated Glomerular Filt Rate 4.9 mL/min (>60); Globulin 2.9 g/dL (1.7-4.1); Glucose 112 mg/dL (80-110); HEMOLYSIS < 15 (0-50); Lipase 1391 U/L (23-300); Potassium 4.7 mmol/L (3.4-5.1); Sodium 133 mmol/L (137-145); Total Protein 6.9 g/dL (6.3-8.2)
[2021-01-02 18:54] LABS: BUN Creatinine Ratio 21.5 (6-22)
[2021-01-02 18:56] LABS: Blood Urea Nitrogen 172 mg/dL (7-17)
[2021-01-02] MEDS: SODIUM CHLORIDE 0.9% 1,000 ML 150 ML IV (20:14)
[2021-01-03] VITALS (10 sets, daily range): BP systolic 131–151; BP diastolic 59–95; PULSE 59–63; RESP 10–30; TEMP 36.8; O2SAT 93–100
== END 2021-01-03 03:45 | disposition short-term general hospital (02) ==
PROVIDERS: Emergency Medicine; Emergency Provider Emergency Medicine; PCP Family Medicine
DX: N17.8 Other acute kidney failure (principal); N18.9 Chronic kidney disease, unspecified; E11.22 Type 2 diabetes mellitus with diabetic chronic kidney disease; E86.0 Dehydration; I48.91 Unspecified atrial fibrillation; K85.80 Other acute pancreatitis without necrosis or infection; N39.0 Urinary tract infection, site not specified; R74.8 Abnormal levels of other serum enzymes; B96.20 Unspecified Escherichia coli [E. coli] as the cause of diseases classified elsewhere
CPT/HCPCS: 36415; 71045; 74176; 76705; 80053; 81003; 81015; 83605; 83690; 84145; 85025; 85610; 85730; 87040; 87086; 87635; 93005; 93010; 96360; 96361; 99284; 99291; C9803; Q9967

== ENCOUNTER → 2021-01-07 11:09 | Outpatient (CLI) | payer MEDICARE, SELFPAY ==
[2021-01-07 13:23] LABS: Alanine Aminotransferase 11 IU/L (<35); Albumin 4.1 g/dL (3.5-5.0); Albumin Globulin Ratio 1.6 (1.0-2.8); Alkaline Phosphatase 55 U/L (38-126); Aspartate Aminotransferase 19 IU/L (14-36); BUN Creatinine Ratio 23.7 (6-22); Bilirubin Total 0.2 mg/dL (0.2-1.3); Blood Urea Nitrogen 69 mg/dL (7-17); Calcium 9.7 mg/dL (8.4-10.2); Carbon Dioxide 24 mmol/L (22-32); Chloride 103 mmol/L (98-107); Estimated Glomerular Filt Rate 15.9 mL/min (>60); Globulin 2.6 g/dL (1.7-4.1); Glucose 144 mg/dL (80-110); HEMOLYSIS < 15 (0-50); Potassium 4.1 mmol/L (3.4-5.1); Sodium 139 mmol/L (137-145); Total Protein 6.7 g/dL (6.3-8.2)
[2021-01-07 13:27] LABS: Creatinine Urine Random 69.7 mg/dL
[2021-01-07 13:31] LABS: Microalbumi Creatinin Ratio Ur 84.6 ug/mg CR (<30); Microalbumin Urine Random 5.9 mg/dL (0-1.6)
== END ==
PROVIDERS: PCP Family Medicine; Referring Provider Family Medicine; Visit Provider Family Medicine
DX: N17.8 Other acute kidney failure (principal); N18.9 Chronic kidney disease, unspecified
CPT/HCPCS: 36415; 80053; 82043; 82570

== ENCOUNTER → 2021-01-20 16:17 | Outpatient (CLI) | payer MEDICARE, SELFPAY ==
[2021-01-20 17:28] LABS: BUN Creatinine Ratio 13.5 (6-22); Blood Urea Nitrogen 25 mg/dL (7-17); Calcium 9.7 mg/dL (8.4-10.2); Carbon Dioxide 26 mmol/L (22-32); Chloride 102 mmol/L (98-107); Estimated Glomerular Filt Rate 26.8 mL/min (>60); Glucose 127 mg/dL (80-110); HEMOLYSIS < 15 (0-50); Potassium 4.6 mmol/L (3.4-5.1); Sodium 139 mmol/L (137-145)
== END ==
PROVIDERS: PCP Family Medicine; Referring Provider Family Medicine; Visit Provider Family Medicine
DX: N17.9 Acute kidney failure, unspecified (principal)
CPT/HCPCS: 36415; 80048

== ENCOUNTER → 2021-02-10 11:32 | Outpatient (CLI) | payer MEDICARE, SELFPAY ==
[2021-02-10 12:23] LABS: INR 3.1 (0.9-1.3); Prothrombin Time 36.6 SECONDS (10.1-12.7)
== END ==
PROVIDERS: PCP Family Medicine; Referring Provider Family Medicine; Visit Provider Family Medicine
DX: Z79.01 Long term (current) use of anticoagulants (principal)
CPT/HCPCS: 36415; 85610

== ENCOUNTER → 2021-05-12 14:30 | Outpatient (CLI) | payer MEDICARE, SELFPAY ==
[2021-05-12 15:50] LABS: Hemoglobin A1C% w Est Avg Glu 6.3 % (4.0-6.0)
[2021-05-12 16:06] LABS: BUN Creatinine Ratio 19.5 (6-22); Blood Urea Nitrogen 33 mg/dL (7-17); Estimated Glomerular Filt Rate 29.7 mL/min (>60)
[2021-05-12 16:36] LABS: Free T3, Triiodothyronine Free 2.38 pg/mL (2.77-5.27); Free T4, Direct Thyroxine 1.77 ng/dL (0.78-2.19)
[2021-05-12 16:49] LABS: Thyroid Stimulating Hormone 0.134 uIU/mL (0.47-4.68)
[2021-05-12 16:53] LABS: Vitamin B12 412 pg/mL (239-931)
== END ==
PROVIDERS: PCP Family Medicine; Referring Provider Family Medicine; Visit Provider Family Medicine
DX: E11.21 Type 2 diabetes mellitus with diabetic nephropathy (principal); F34.1 Dysthymic disorder; E03.9 Hypothyroidism, unspecified; N17.9 Acute kidney failure, unspecified; I10 Essential (primary) hypertension
CPT/HCPCS: 36415; 82565; 82607; 83036; 84439; 84443; 84481; 84520

== ENCOUNTER → 2022-03-18 11:18 | Outpatient (CLI) | payer MEDICARE, SELFPAY ==
[2022-03-18 11:57] LABS: Add Manual Diff / Slide Review NO; Basophils Absolute Auto 100 /uL (0-100); Eosinophils Absolute Auto 100 /uL (0-450); Eosinophils Percent Auto 1.4 % (2-4); Hematocrit 39.9 % (36-46); Hemoglobin 13.2 g/dL (12.0-16.0); Lymphocytes Absolute Auto 1400 /uL (1100-4500); Lymphocytes Percent Auto 13.7 % (25-40); Mean Corpuscular HGB Conc 33.1 % (30-36); Mean Corpuscular Hemoglobin 28.4 PG (26-34); Mean Corpuscular Volume 85.6 fL (80-100); Monocytes Absolute Auto 700 /uL (0-900); Monocytes Percent Auto 6.6 % (3-14); Neutrophils Absolute Auto 7900 /uL (1500-7000); Neutrophils Percent Auto 77.3 % (50-75); Platelet Count 433 X10^3/uL (150-400); Red Blood Cell Count 4.67 X10^6/uL (4.0-5.2); Red Cell Distribution Width 13.9 % (11.6-14.8); White Blood Cell Count 10.3 X10^3/uL (4.5-11.0)
[2022-03-18 11:59] LABS: Alanine Aminotransferase 17 IU/L (<35); Albumin 4.6 g/dL (3.5-5.0); Albumin Globulin Ratio 1.1 (1.0-2.8); Alkaline Phosphatase 106 U/L (38-126); Aspartate Aminotransferase 22 IU/L (14-36); BUN Creatinine Ratio 14.9 (6-22); Bilirubin Total 0.5 mg/dL (0.2-1.3); Blood Urea Nitrogen 24 mg/dL (7-17); Calcium 9.7 mg/dL (8.4-10.2); Carbon Dioxide 25 mmol/L (22-32); Chloride 101 mmol/L (98-107); Estimated Glomerular Filt Rate 34 mL/min (>60); Globulin 4.2 g/dL (1.7-4.1); Glucose 169 mg/dL (80-110); HDL Cholesterol 58 mg/dL (40-60); HEMOLYSIS < 15 (0-50); Potassium 4.8 mmol/L (3.4-5.1); Sodium 138 mmol/L (137-145); Total Protein 8.8 g/dL (6.3-8.2); Triglycerides 206 mg/dL (35-150)
[2022-03-18 12:09] LABS: Cholesterol 359 mg/dL (140-199); LDL Cholesterol Calculated 260 mg/dL (<100)
[2022-03-18 12:31] LABS: TSH w/ Reflex to FT4 0.52 uIU/mL (0.47-4.68)
== END ==
PROVIDERS: PCP Family Medicine; Referring Provider Family Medicine; Visit Provider Family Medicine
DX: E03.9 Hypothyroidism, unspecified (principal); E11.21 Type 2 diabetes mellitus with diabetic nephropathy; E78.5 Hyperlipidemia, unspecified; I10 Essential (primary) hypertension
CPT/HCPCS: 36415; 80053; 80061; 84443; 85025

== ENCOUNTER → 2022-07-30 10:41 | Outpatient (CLI) | payer MEDICARE, SELFPAY ==
[2022-07-30 11:16] LABS: Add Manual Diff / Slide Review NO; Basophils Absolute Auto 100 /uL (0-100); Basophils Percent Auto 0.7 % (0-2); Eosinophils Absolute Auto 200 /uL (0-450); Eosinophils Percent Auto 1.3 % (2-4); Hematocrit 38.7 % (36-46); Hemoglobin 12.9 g/dL (12.0-16.0); Lymphocytes Absolute Auto 1700 /uL (1100-4500); Mean Corpuscular HGB Conc 33.4 % (30-36); Mean Corpuscular Hemoglobin 28.6 PG (26-34); Mean Corpuscular Volume 85.4 fL (80-100); Monocytes Absolute Auto 900 /uL (0-900); Monocytes Percent Auto 7.5 % (3-14); Neutrophils Absolute Auto 8700 /uL (1500-7000); Neutrophils Percent Auto 75.5 % (50-75); Platelet Count 424 X10^3/uL (150-400); Red Blood Cell Count 4.53 X10^6/uL (4.0-5.2); Red Cell Distribution Width 13.7 % (11.6-14.8); White Blood Cell Count 11.6 X10^3/uL (4.5-11.0)
[2022-07-30 11:37] LABS: Alanine Aminotransferase 17 IU/L (<35); Albumin 4.6 g/dL (3.5-5.0); Albumin Globulin Ratio 1.4 (1.0-2.8); Alkaline Phosphatase 90 U/L (38-126); Aspartate Aminotransferase 20 IU/L (14-36); BUN Creatinine Ratio 15.9 (6-22); Bilirubin Total 0.2 mg/dL (0.2-1.3); Blood Urea Nitrogen 29 mg/dL (7-17); Calcium 9.9 mg/dL (8.4-10.2); Carbon Dioxide 23 mmol/L (22-32); Chloride 103 mmol/L (98-107); Estimated Glomerular Filt Rate 29 mL/min (>60); Globulin 3.4 g/dL (1.7-4.1); Glucose 139 mg/dL (80-110); HDL Cholesterol 63 mg/dL (40-60); HEMOLYSIS < 15 (0-50); Sodium 140 mmol/L (137-145); Triglycerides 218 mg/dL (35-150)
[2022-07-30 11:43] LABS: Cholesterol 355 mg/dL (140-199); LDL Cholesterol Calculated 248 mg/dL (<100)
== END ==
PROVIDERS: PCP Family Medicine; Referring Provider Family Medicine; Visit Provider Family Medicine
DX: E11.9 Type 2 diabetes mellitus without complications (principal); E78.5 Hyperlipidemia, unspecified; I10 Essential (primary) hypertension; N18.4 Chronic kidney disease, stage 4 (severe)
CPT/HCPCS: 36415; 80053; 80061; 85025

== ENCOUNTER → 2022-09-06 13:19 | Outpatient (CLI) | payer MEDICARE, SELFPAY ==
[2022-09-07 19:13] LABS: Fecal Immunochemical Test Negative (Negative)
== END ==
PROVIDERS: PCP Family Medicine; Referring Provider Family Medicine; Visit Provider Family Medicine
DX: Z12.11 Encounter for screening for malignant neoplasm of colon (principal)
CPT/HCPCS: 82274

== ENCOUNTER → 2023-01-24 13:14 | Outpatient (CLI) | payer MEDICARE, SELFPAY ==
[2023-01-24 14:40] LABS: INR 4.3 (0.9-1.3); Prothrombin Time 50.6 SECONDS (9.4-12.5)
== END ==
PROVIDERS: PCP Family Medicine; Referring Provider Family Medicine; Visit Provider Family Medicine
DX: I82.409 Acute embolism and thrombosis of unspecified deep veins of unspecified lower extremity (principal)
CPT/HCPCS: 36415; 85610

== ENCOUNTER → 2023-05-27 14:55 | Outpatient (CLI) | payer MEDICARE, SELFPAY | PROVIDERS: PCP Family Medicine; Referring Provider Internal Medicine Cardiovascular Disease; Visit Provider Internal Medicine Cardiovascular Disease | DX: R06.02 Shortness of breath (principal); J98.8 Other specified respiratory disorders | CPT/HCPCS: 94060; 94726; 94729 ==

== ENCOUNTER → 2023-06-07 11:11 | Outpatient (CLI) | payer MEDICARE, SELFPAY ==
[2023-06-07 14:19] LABS: Alanine Aminotransferase 11 IU/L (<35); Albumin 4.5 g/dL (3.5-5.0); Albumin Globulin Ratio 1.5 (1.0-2.8); Alkaline Phosphatase 77 U/L (38-126); Aspartate Aminotransferase 19 IU/L (14-36); BUN Creatinine Ratio 18.9 (6-22); Bilirubin Total 0.5 mg/dL (0.2-1.3); Blood Urea Nitrogen 32 mg/dL (7-17); Calcium 9.8 mg/dL (8.4-10.2); Carbon Dioxide 25 mmol/L (22-32); Chloride 106 mmol/L (98-107); Cholesterol 186 mg/dL (140-199); Estimated Glomerular Filt Rate 31 mL/min (>60); Globulin 3.1 g/dL (1.7-4.1); Glucose 134 mg/dL (80-110); HDL Cholesterol 60 mg/dL (40-60); HEMOLYSIS < 15 (0-50); LDL Cholesterol Calculated 108 mg/dL (<100); Sodium 139 mmol/L (137-145); Total Protein 7.6 g/dL (6.3-8.2); Triglycerides 90 mg/dL (35-150)
[2023-06-07 14:26] LABS: Hemoglobin A1C% w Est Avg Glu 6.6 % (4.0-6.0)
== END ==
PROVIDERS: PCP Family Medicine; Referring Provider Internal Medicine Cardiovascular Disease; Visit Provider Internal Medicine Cardiovascular Disease
DX: I12.9 Hypertensive chronic kidney disease with stage 1 through stage 4 chronic kidney disease, or unspecified chronic kidney disease (principal); N18.4 Chronic kidney disease, stage 4 (severe); E11.9 Type 2 diabetes mellitus without complications; E78.5 Hyperlipidemia, unspecified
CPT/HCPCS: 36415; 80053; 80061; 83036

== ENCOUNTER → 2023-06-08 14:12 | Outpatient (CLI) | payer MEDICARE, SELFPAY ==
--- NOTE | 2023-06-08 14:15 | DI.NM.S_ITS ---
PROCEDURE: NM CME PERF SPECT R&S PHARM Rest and pharmacological stress myocardial perfusion SPECT with gated imaging and ejection fraction RADIOPHARMACEUTICAL: 26.1 mCi Tc-99m tetrafosmin IV at rest and 26.7 mCi Tc-99m tetrafosmin IV at peak effect of pharmacological stress. [id number] was performed. INDICATIONS: Shortness of breath TECHNIQUE: Radiopharmaceutical was injected at peak stress test, and also at rest. SPECT images were obtained. SPECT myocardial perfusion images were displayed in short axis, horizontal long axis, and vertical long axis views. Gated images were reviewed using [employer] software. COMPARISON: None. CARDIAC STRESS: A pharmacologic stress test was performed under the supervision of an attending staff, using an infusion of regadenoson 0.4 mg IV. Hemodynamic data: There is normal blood pressure and heart rate response to pharmacologic stress. Symptoms: The patient denied anginal chest pain. EKG: No diagnostic changes of ischemia; no ectopy. FINDINGS: Raw data: There is good myocardial uptake of radiotracer. No significant motion artifacts. Fbag-nx-fzpdq ratio is 0.23 (normal is less than 0.38 for tetrafosmin tracer). Left ventricle function: Gated images demonstrate normal left ventricular wall thickening. No segmental wall motion abnormalities. No transient ischemic dilation; TID is 1.0 (normal less than 1.3). Left ventricle resting end diastolic volume is 129 mL. Left ventricle stress ejection fraction is 75%; normal range is above 45%. Myocardial perfusion: There is a small size, mild intensity reversible apical septal wall defect. No fixed perfusion defects. IMPRESSION: Abnormal study but likely lower risk. There is a small size, mild intensity reversible apical septal wall defect. Given the size and location of this perfusion defect only a small area of myocardium is affected. Mildly dilated LV hold based on calculated end-diastolic volume. Normal LV function and wall motion. Dictated by: Radha Reynaga D.O. on 06/09/2023 at 16:11 Approved by: Radha Reynaga D.O. on 06/09/2023 at 16:15
== END ==
PROVIDERS: PCP Family Medicine; Referring Provider Internal Medicine Cardiovascular Disease; Visit Provider Internal Medicine Cardiovascular Disease
DX: R06.02 Shortness of breath (principal); R94.39 Abnormal result of other cardiovascular function study
CPT/HCPCS: 78452; 93017; A9502; J2785

== ENCOUNTER → 2023-06-09 13:45 | Outpatient (CLI) | payer MEDICARE, SELFPAY ==
--- NOTE | 2023-06-09 13:46 | DI.ECHO.S_ITS ---
[facility] : : [id number] : [place] : : [id number] : : Phone: [phone] Echocardiogram Report + + :Name: COLTON SMITH Study Date: 06/09/2023 Height: 64 in : :[facility] ReadingLocation: Weight: 220 lb : : Gender: Female BSA: 2.0 m2 : :: 1950 Age: 72 yrs BP: 137/69 mmHg: :Reason For Study: SHORTNESS OF BREATH : :Ordering Physician: ROSSI, : :NOAH Performed By: Adri Anthony : :Referring: NOAH RICHEY : + + Interpretation Summary The left ventricle is normal in size and wall thickness. The ejection fraction is estimated to be 65-70%. The right ventricle is normal in size and function. Mild to moderate MR. Previously mild MR. There is severe aortic stenosis. Compared to the prior echo study, there has been an increase in the severity of aortic stenosis. The peak aortic velocity is 4.4 m/sec. The aortic valve mean gradient is 46 mmHg. The calculated aortic valve area is 0.89 cm2. The peak aortic velocity on the previous exam was 2.48 m/sec. There is mild aortic regurgitation. Compared to the prior echo study, there has been no change in the severity of aortic regurgitation. There is mild tricuspid regurgitation. Compared to the prior echo exam, there has been no change in TR severity. The right ventricular systolic pressure is estimated to be at least 37 mmHg based on an estimated right atrial pressure of 3 mm Hg. Compared to the prior echo exam, there has been an increase in the severity of pulmonary hypertension. There is aortic root sclerosis/calcification. Procedure: A two-dimensional transthoracic echocardiogram with color flow and Doppler was performed. The study quality was technically adequate. Comparison is made with the echocardiogram of 11/20/2019. The patient has a paced rhythm. The heart rate ranged between 60 bpm during the study. Left Ventricle: The left ventricle is normal in size and wall thickness. There is no thrombus. The ejection fraction is estimated to be 65-70%. There are no focal wall motion abnormalities. Diastolic function could not be accurately assessed due to paced rhythm. E/E' med: 22.0. Right Ventricle: The right ventricle is normal in size and function. Atria: The left atrium is mildly dilated. The left atrium has mildly increased in size since the prior echo exam. Right atrial size is normal. There is no Doppler evidence for an interatrial shunt. Mitral Valve: There is mild mitral annular calcification. The mitral valve leaflets are mildly calcified. There is mild to moderate mitral regurgitation. Compared to the prior echo study, there has been an increase in the severity of mitral regurgitation. Aortic Valve: The aortic valve is moderately calcified. The aortic valve is not well visualized. There is severe aortic stenosis. The peak aortic velocity is 4.4 m/sec. The aortic valve mean gradient is 46 mmHg. The calculated aortic valve area is 0.89 cm2. The peak aortic velocity on the previous exam was 2.48 m/sec. Compared to the prior echo study, there has been an increase in the severity of aortic stenosis. There is mild aortic regurgitation. Compared to the prior echo study, there has been no change in the severity of aortic regurgitation. Tricuspid Valve: The tricuspid valve is normal. There is mild tricuspid regurgitation. The right ventricular systolic pressure is estimated to be at least 37 mmHg based on an estimated right atrial pressure of 3 mm Hg. Compared to the prior echo exam, there has been no change in TR severity. Compared to the prior echo exam, there has been an increase in the severity of pulmonary hypertension. Pulmonic Valve: The pulmonic valve is not well visualized. There is mild pulmonic regurgitation. Great Vessels: The aortic root is normal size. There is aortic root sclerosis/calcification. The ascending aorta is at the upper limits of normal in size. The inferior vena cava appeared normal. Pericardium/ Pleura There is no pericardial effusion. There is no pleural effusion. MMode/2D Measurements & Calculations LVIDd: 4.9 cm LVOT diam: 2.0 cm LVIDs: 3.5 cm Ao root diam: 2.6 cm FS: 28.4 % asc Aorta Diam: 3.6 cm IVSd: 0.99 cm Ao Arch Diam (Prox Trans): 3.2 cm LVPWd: 0.86 cm LV freire. diameter/BSA (cm/m^2): 2.4 LV sys. diameter/BSA (cm/m^2): 1.7 LA A2 area: 24.1 cm2 RA long axis: 5.2 cm LA A4 area: 19.7 cm2 RA area: 15.2 cm2 LA length (vol): 5.4 cm RA vol: 37.4 ml LA vol: 75.2 ml RA : 18.4 ml/m2 LA vol index: 36.9 ml/m2 IVC diam: 1.7 cm RVD1 (basal): 3.9 cm RVD2 (mid): 3.4 cm TAPSE: 2.8 cm Doppler Measurements & Calculations Ao V2 max: 439.4 cm/sec LVOT Max Jesse: 119.7 cm/sec Ao V2 mean: 317.4 cm/sec LV V1 max P.7 mmHg Ao max P.6 mmHg LV V1 VTI: 28.3 cm Ao mean P.6 mmHg RADHA(I,D): 0.91 cm2 Ao V2 VTI: 101.7 cm RADHA(V,D): 0.89 cm2 sev ratio: 0.28 RADHA indexed to BSA (cm^2/m^2): 0.45 AI P1/2t: 527.8 msec AI dec slope: 202.4 cm/sec2 MV E max jesse: 125.5 cm/sec TR max jesse: 292.1 cm/sec MV A max jesse: 42.1 cm/sec TR max P.1 mmHg MV E/A: 3.0 PA V2 max: 109.8 cm/sec Med Peak E' Jesse: 5.7 cm/sec PA V2 mean: 79.0 cm/sec E/E' med: 22.0 PA mean P.7 mmHg Lat Peak E' Jesse: 6.9 cm/sec PA pr(Accel): 46.5 mmHg E/E' lat: 18.2 E/e' average: 20.1 MV dec time: 0.29 sec SV(LVOT): 92.7 ml Reading Physician:05:08 PM
== END ==
PROVIDERS: PCP Family Medicine; Referring Provider Internal Medicine Cardiovascular Disease; Visit Provider Internal Medicine Cardiovascular Disease
DX: I08.3 Combined rheumatic disorders of mitral, aortic and tricuspid valves (principal); I27.20 Pulmonary hypertension, unspecified; I70.0 Atherosclerosis of aorta; R06.02 Shortness of breath
CPT/HCPCS: 93306

== ENCOUNTER → 2023-08-26 14:16 | Outpatient (CLI) | payer MEDICARE, SELFPAY ==
[2023-08-26 15:23] LABS: BUN Creatinine Ratio 19.6 (6-22); Blood Urea Nitrogen 33 mg/dL (7-17); Calcium 9.8 mg/dL (8.4-10.2); Carbon Dioxide 26 mmol/L (22-32); Chloride 108 mmol/L (98-107); Estimated Glomerular Filt Rate 32 mL/min (>60); Glucose 118 mg/dL (80-110); HEMOLYSIS < 15 (0-50); Potassium 4.8 mmol/L (3.4-5.1); Sodium 141 mmol/L (137-145)
== END ==
PROVIDERS: PCP Family Medicine; Referring Provider Physician Assistant; Visit Provider Physician Assistant
DX: Z48.812 Encounter for surgical aftercare following surgery on the circulatory system (principal)
CPT/HCPCS: 36415; 80048

== ENCOUNTER 2023-08-31 17:59 | Emergency (ER) | payer MEDICARE, SELFPAY ==
[2023-08-31] VITALS (26 sets, daily range): BP systolic 141–226; BP diastolic 69–112; PULSE 59–62; RESP 9–21; TEMP 36.6; O2SAT 94–98; BMI 37.8
--- NOTE | 2023-08-31 18:08 | ED_ITS ---
HPI - General Adult General Chief complaint: Neuro Symptoms/Deficit Stated complaint: dilated pupil, lips numb, HBP. Time Seen by Provider: 08/31/23 18:07 Source: patient, RN notes reviewed and old records reviewed Limitations: no limitations History of Present Illness HPI narrative: 72-year-old female with history of atrial fibrillation, aortic valve replacement by TAVR 2 weeks ago, hypertension, dyslipidemia, diabetes, chronic kidney disease on aspirin and warfarin with pacemaker. Patient presents with complaint of feeling lightheaded and a little bit dizzy, headache behind her left ey that was very fairly abrupt on presentation. Patient states not the worst headache of her life but is still present. She felt numb and tingling on the left side of her face and left hand. She states that is improved. Her noticed that her right pupil is larger than her left. They noticed this shortly before 6:00 p.m. around 5:45 p.m. and presents to the ED. patient denies any fevers or chills. States headaches present but not worst of her life. She does not normally get headaches. States her heart rates felt a little irregular, little short of breath no chest pain or pressure. States some mild nausea but no vomiting. No numbness tingling or weakness elsewhere other than described above. No difficulty with gait. No issues with bowel movements or urination. No incontinence. No new swelling in extremities. No difficulties with speech or facial droop. Patient took 162 mg of aspirin prior to arrival. They note that her blood pressure has been a systolic 180s in the mornings and 150s in the evenings since her surgery. She has had aortic valve replacement by TAVR, no prior aneurysm repair. She has had cardiac ablation and pacemaker, hysterectomy, appendectomy and cholecystectomy. Patient states allergic to codeine. No tobacco, alcohol or recreational drugs. Her primary care is Dr. Barry. Chemist Intern is Dr. Linda. She had her TAVR performed at [facility] in [place]. Related Data Home Medications Medication Instructions Recorded Confirmed flecainide 50 mg tablet 50 mg PO BID 01/05/18 01/19/23 amlodipine 5 mg tablet 5 mg PO DAILY 07/30/22 01/19/23 estradiol 0.01% (0.1 mg/gram) 1 g vaginal 2XW 08/18/22 01/19/23 vaginal cream oxybutynin chloride 10 mg 10 mg PO DAILY 01/19/23 01/19/23 tablet,extended release 24 hr Previous Rx's Medication Instructions Recorded metformin 500 mg tablet See Rx Instructions .Route 04/26/23 .COMPLEX #180 tabs paroxetine HCl 40 mg tablet 40 mg PO DAILY #180 tabs 06/23/23 warfarin 5 mg tablet See Rx Instructions .Route 07/08/23 .COMPLEX #105 tabs levothyroxine 125 mcg tablet 125 mcg PO DAILY #90 tabs 08/24/23 Allergies Allergy/AdvReac Type Severity Reaction Status Date / Time codeine AdvReac Mild N/V Verified 08/31/23 18:10 Review of Systems Review of Systems ROS Unobtainable: All systems reviewed & are unremarkable except as noted in HPI and below Patient History Medical History Rib tenderness Medicare annual wellness visit, subsequent Mixed incontinence urge and stress CKD (chronic kidney disease) stage 4, GFR 15-29 ml/min Anorexia Depression Hypothyroidism (acquired) Warfarin anticoagulation Sacral region somatic dysfunction Somatic dysfunction of lower extremity Pelvic somatic dysfunction Segmental and somatic dysfunction of abdomen and other regions Segmental and somatic dysfunction of rib cage Candidal intertrigo Bilateral lower extremity edema HTN (hypertension) Hyperlipidemia Diabetes Surgical History Status post cholecystectomy Status post appendectomy History of tonsillectomy Family History Father Hypertension Mother Hypertension Stroke Social History Smoking Status: Never smoker Smoking Status: Never smoker alcohol intake frequency: holidays/special occasions only Substance Use Type: does not use Exam Narrative Exam Narrative: GEN: well nourished, well appearing female, alert and oriented x 3, patient appears to be in mild distress. HEENT: Atraumatic, pupils are unequal right being greater than left by about 2 mm round reactive to light, extraocular movements are intact, no nystagmus, nares are clear, TMs are clear with no fluid, there is no conjunctival pallor. Throat is clear without any exudates, erythema, tonsillar enlargement or uvular deviation, no facial droop. HEART: Regular rate and rhythm without murmur, clicks, rubs. No carotid bruits, pulses are equal in upper and lower extremities LUNGS:Lungs clear to auscultation, no wheezes, rales, crackles, chest moves symmetrically ABD:bowel sounds normal, soft, non-tender, no guarding, rebound, rigidity, no masses noted, no hepatosplenomegaly :No CVA tenderness MSCL: Non-tender, no muscle atrophy, muscles strength 5/5 upper and lower extremities, full range of motion. NEURO:CN 2-12 intact, sensation normal, finger nose finger test normal, heel mast test normal, no dysarthria or aphasia. Initial Vital Signs Initial Vital Signs: Vital Signs Temperature 98 F 08/31/23 18:06 Pulse Rate 60 08/31/23 18:06 Respiratory Rate 16 08/31/23 18:06 Blood Pressure 226/105 H 08/31/23 18:06 Pulse Oximetry 97 08/31/23 18:06 Oxygen Delivery Method Room Air 08/31/23 18:06 Scores NIH Stroke Scale Level of Conciousness: Alert, keenly responsive Ask month/age: Answers both questions correctly. Open/close eyes, close hand: Performs both tasks correctly Best gaze horizontal: Normal Visual muller: No visual loss Facial palsy: Normal symetrical movement Left arm drift: No drift for full 10 sec Right arm drift: No drift for full 10 sec Left leg drift: No drift for full 5 sec Right leg drift: No drift for full 5 sec Limb ataxia: Absent Sensory on face/arms/legs: Normal, no sensory loss Best language: No aphasia, normal Dysarthria: Normal Extinction or inattention: No abnormality Total NIH Stroke scale score: 0 Course Orders Ordered: Discontinued Medications Flecainide Acetate (Flecainide 100 Mg Tablet) 50 mg PO NOW ONE Stop: 08/31/23 22:11 Last Admin: 08/31/23 22:30 Dose: Not Given Documented By: RODO Acetaminophen (Ofirmev) 1,000 mg in 100 mls @ 400 mls/hr IV NOW ONE Stop: 08/31/23 20:07 Last Infusion: 08/31/23 20:38 Dose: Infused Documented By: Admin: 08/31/23 20:05 Dose: 400 mls/hr Documented By: RODO Phytonadione 10 mg/ Sodium (Chloride) 101 mls @ 202 mls/hr IV NOW ONE Stop: 08/31/23 23:49 Last Infusion: 09/01/23 00:54 Dose: Infused Documented By: Admin: 09/01/23 00:04 Dose: 202 mls/hr Documented By: RODO Prothrombin Complex Concent ( Human) 2,000 unit/Miscellaneous 80 mls @ 718.488 mls/hr IV NOW ONE; Protocol Stop: 08/31/23 23:54 Last Infusion: 09/01/23 00:40 Dose: Infused Documented By: Admin: 09/01/23 00:10 Dose: 3 unit/kg/min, 718.488 mls/hr Documented By: RODO Labetalol HCl (Labetalol 20 Mg/4 Ml Syringe) 10 mg IV NOW ONE Stop: 08/31/23 18:20 Last Admin: 08/31/23 18:35 Dose: 10 mg Documented By: RODO Losartan Potassium (Losartan 50 Mg Tablet) 50 mg PO NOW ONE Stop: 08/31/23 22:11 Last Admin: 08/31/23 22:31 Dose: Not Given Documented By: RODO Ondansetron HCl (Ondansetron 4 Mg/2 Ml Inj) 4 mg IV NOW PRN PRN Reason: Nausea And Vomiting Ondansetron HCl (Ondansetron 4 Mg Odt) 4 mg SL NOW PRN PRN Reason: Nausea And Vomiting Last Admin: 08/31/23 18:39 Dose: 4 mg Documented By: RODO Vital Signs Vital signs: Vital Signs - 8 hr 08/31/23 19:30 08/31/23 19:30 08/31/23 19:40 Pulse Rate 60 60 60 Respiratory Rate 10 L 10 L Blood Pressure 171/79 H Pulse Oximetry 97 97 Oxygen Delivery Method 08/31/23 19:40 08/31/23 20:00 08/31/23 20:01 Pulse Rate 60 Respiratory Rate 15 Blood Pressure 168/80 H 180/79 H Pulse Oximetry 97 Oxygen Delivery Method Room Air 08/31/23 20:01 08/31/23 20:21 08/31/23 20:21 Pulse Rate 60 59 L Respiratory Rate 14 17 Blood Pressure 156/80 H Pulse Oximetry 96 96 Oxygen Delivery Method Room Air 08/31/23 20:30 08/31/23 20:40 08/31/23 20:40 Pulse Rate 59 L 60 Respiratory Rate 13 15 Blood Pressure 160/72 H Pulse Oximetry 96 95 Oxygen Delivery Method 08/31/23 21:00 08/31/23 21:00 08/31/23 21:21 Pulse Rate 59 L Respiratory Rate 16 Blood Pressure 156/112 H 141/70 H Pulse Oximetry 95 Oxygen Delivery Method 08/31/23 21:21 08/31/23 21:30 08/31/23 21:40 Pulse Rate 60 60 60 Respiratory Rate 11 L 15 11 L Blood Pressure Pulse Oximetry 96 96 95 Oxygen Delivery Method 08/31/23 21:40 08/31/23 22:00 08/31/23 22:00 Pulse Rate 60 Respiratory Rate 9 L Blood Pressure 155/71 H 152/72 H Pulse Oximetry 97 Oxygen Delivery Method 08/31/23 22:30 08/31/23 22:31 08/31/23 23:00 Pulse Rate 60 60 60 Respiratory Rate 18 17 Blood Pressure 152/72 H Pulse Oximetry 97 Oxygen Delivery Method Room Air 08/31/23 23:21 08/31/23 23:21 08/31/23 23:30 Pulse Rate 60 60 Respiratory Rate 17 14 Blood Pressure 153/69 H Pulse Oximetry 94 95 Oxygen Delivery Method Room Air 08/31/23 23:30 09/01/23 00:00 09/01/23 00:00 Pulse Rate 59 L Respiratory Rate 12 Blood Pressure 148/69 H 147/69 H Pulse Oximetry 97 Oxygen Delivery Method 09/01/23 00:30 09/01/23 00:30 09/01/23 01:00 Pulse Rate 60 60 Respiratory Rate 14 12 Blood Pressure 151/73 H Pulse Oximetry 95 96 Oxygen Delivery Method 09/01/23 01:00 09/01/23 01:30 09/01/23 01:31 Pulse Rate 61 60 Respiratory Rate 14 18 Blood Pressure 142/71 H Pulse Oximetry 95 95 Oxygen Delivery Method Room Air 09/01/23 01:31 09/01/23 01:47 09/01/23 01:47 Pulse Rate 60 Respiratory Rate 10 L Blood Pressure 171/75 H 149/70 H Pulse Oximetry 97 Oxygen Delivery Method Room Air 09/01/23 02:00 09/01/23 02:00 09/01/23 02:30 Pulse Rate 62 60 Respiratory Rate 10 L 17 Blood Pressure 139/63 Pulse Oximetry 96 93 Oxygen Delivery Method 09/01/23 02:30 09/01/23 03:00 09/01/23 03:00 Pulse Rate 60 Respiratory Rate 23 Blood Pressure 146/67 H 153/69 H Pulse Oximetry 92 Oxygen Delivery Method Room Air Medical Decision Making Lab Data 08/31/23 18:00 08/31/23 18:00 Labs: Lab Results 08/31/23 Range/Units 18:00 WBC 11.2 H (4.5-11.0) X10^3/uL RBC 4.18 (4.0-5.2) X10^6/uL Hgb 11.4 L (12.0-16.0) g/dL Hct 35.0 L (36-46) % MCV 83.8 (80-100) fL MCH 27.3 (26-34) PG MCHC 32.6 (30-36) % RDW 14.4 (11.6-14.8) % Plt Count 363 (150-400) X10^3/uL Neut % (Auto) 72.6 (50-75) % Lymph % (Auto) 13.4 L (25-40) % Elbert % (Auto) 9.5 (3-14) % Eos % (Auto) 3.5 (2-4) % Baso % (Auto) 1.0 (0-2) % Neut # (Auto) 8200 H (8363-7121) /uL Lymph # (Auto) 1500 (4773-4420) /uL Elbert # (Auto) 1100 H (0-900) /uL Eos # (Auto) 400 (0-450) /uL Baso # (Auto) 100 (0-100) /uL PT 23.2 H (9.4-12.5) SECONDS INR 2.0 H (0.9-1.3) APTT 44 H (25.1-36.5) SECONDS Sodium 140 (137-145) mmol/L Potassium 4.9 (3.4-5.1) mmol/L Chloride 106 (98-107) mmol/L Carbon Dioxide 27 (22-32) mmol/L BUN 40 H (7-17) mg/dL Creatinine 2.08 H (0.52-1.04) mg/dL Estimated GFR 25 L (>60) mL/min BUN/Creatinine Ratio 19.2 (6-22) Glucose 105 (80-110) mg/dL Calcium 9.5 (8.4-10.2) mg/dL Magnesium 1.9 (1.6-2.3) mg/dL Total Bilirubin 0.4 (0.2-1.3) mg/dL AST 19 (14-36) IU/L ALT 11 (<35) IU/L Alkaline Phosphatase 92 (38-126) U/L Total Creatine Kinase 35 (30-135) U/L Troponin I 0.021 (0.01-0.034) ng/mL Total Protein 8.0 (6.3-8.2) g/dL Albumin 4.6 (3.5-5.0) g/dL Globulin 3.4 (1.7-4.1) g/dL Albumin/Globulin Ratio 1.4 (1.0-2.8) Imaging Data CT scan - head: Radiologist's Impression: Close Head/Neck CTA (Signed) Joo Chaves - 08/31/[address] (Signed) Joo Chaves - 08/31/23 Outside Echo 08/17/23 Echocardiogram Ultrasound (Signed) Nicolle De La Cruz - 06/09/23 Outside Stress Test 06/08/23 Myocardial Perfusion Scan Nuc Med (Signed) Radha Reynaga - 06/08/23 PFT Result 05/27/23 Abdomen Ultrasound (Signed) Ck Marie - 01/02/21 Abdomen/Pelvis CT (Signed) Miles Huitron - 01/02/21 Chest X-Ray (Signed) Amy Dave - 01/02/21 Lumbar Spine X-Ray (Signed) Mario Day - 12/12/[address] (Signed) Kishore Rolle - 09/23/20 Chest X-Ray (Signed) Thom Pleitez - 09/23/20 Echocardiogram Ultrasound (Signed) Nicolle De La Cruz - 11/20/19 Mammogram Screening (Signed) Harsha Carranza - 04/07/18 Chest/Abdomen/Pelvis CT (Signed) Thom Pleitez - 01/05/[address] [address] [address] Scan Report Signed Patient: Pat Thayer MR#: [id number] : 1950 Acct:[id number] Age/Sex: 72 / F Date of Service: 08/31/23 Loc: ED Accession Number: [id number] Procedure: CT Stroke Ordering Provider: Latosha Curry D.O. PROCEDURE: CT STROKE INDICATIONS: Positive BE-FAST, Stroke symptoms TECHNIQUE: Noncontrast 4.5 mm thick angled axial sections acquired from the foramen magnum to the vertex, with coronal reformats. For radiation dose reduction, the following was used: automated exposure control, adjustment of mA and/or kV according to patient size. COMPARISON: [facility], CT, CT ANGIO HEAD AND NECK, 08/31/2023, 18:14. [facility], CT, CT HEAD/BRAIN WO CON, 09/23/2020, 14:44. FINDINGS: Image quality: Diagnostic. CSF spaces: Basal cisterns are patent. The ventricles are symmetric in size and shape. Brain: There is a moderately hyperintense extra-axial fluid collection seen adjacent to the left parietal lobe.4 this measures 32 x 19 mm in greatest axial dimension. There is mild mass effect seen upon the adjacent parietal lobe. No intraparenchymal hemorrhage can be seen. There is cerebral volume loss for age, with resultant ventricular and sulcal prominence. There are periventricular and deep white matter chronic small vessel ischemic changes. There is intracranial internal carotid artery atherosclerosis. Skull and face: Calvarium and visualized facial bones appear intact, without suspicious lesions. Sinuses: Visualized sinuses and mastoids are clear. IMPRESSION: There is an extra-axial fluid collection seen adjacent to the left parietal lobe, which is attributed to subdural hemorrhage. Meningioma is theoretically possible, yet no similar lesion can be seen on the 2020 examination. No intraparenchymal hemorrhage can be seen. Note: Case discussed by telephone with Dr. Curry at 6:39 p.m. [place] time on August 31, 2023. This study fulfills neurological imaging criteria for inclusion or exclusion of acute stroke therapies based on available published neurological guidelines. Dictated by: Joo Chaves M.D. on 08/31/2023 at 17:36 Approved by: Joo Chaves M.D. on 08/31/2023 at 17:43 CTA - brain/neck: Radiologist's Impression: Close Head/Neck CTA (Signed) Joo Chaves - 08/31/[address] (Signed) Joo Chaves - 08/31/23 Outside Echo 08/17/23 Echocardiogram Ultrasound (Signed) ErroliwNicolle gomez - 06/09/23 Outside Stress Test 06/08/23 Myocardial Perfusion Scan Nuc Med (Signed) Alexia Reynagae - 06/08/23 PFT Result 05/27/23 Abdomen Ultrasound (Signed) Ck Marie - 01/02/21 Abdomen/Pelvis CT (Signed) Miles Huitron - 01/02/21 Chest X-Ray (Signed) Amy Dave - 01/02/21 Lumbar Spine X-Ray (Signed) Mario Day - 12/12/[address] (Signed) Kishore Rolle - 09/23/20 Chest X-Ray (Signed) Thom Pleitez - 09/23/20 Echocardiogram Ultrasound (Signed) JonoЮлияeusebio - 11/20/19 Mammogram Screening (Signed) Harsha Carranza - 04/07/18 Chest/Abdomen/Pelvis CT (Signed) Thom Pleitez - 01/05/18 Launch?[place] [address] CT Scan Report Signed Patient: Pat Thayer MR#: [id number] : 1950 Acct:[id number] Age/Sex: 72 / F Date of Service: 08/31/23 Loc: Accession Number: [id number] Procedure: CT angio head and neck Ordering Provider: Latosha Curry D.O. PROCEDURE: CT ANGIO HEAD AND NECK INDICATIONS: htn TECHNIQUE: After the administration of intravenous contrast, 1 mm thick sections acquired from the aortic arch through the [place] of [place]. 3-dimensional imvnxaf-yqsbtdfge-cdbhixonmg (MIP) and/or volume rendering reformats were acquired of the central intracranial vasculature and neck separately. For radiation dose reduction, the following was used: automated exposure control, adjustment of mA and/or kV according to patient size. COMPARISON: [facility], CT, CT STROKE, 08/31/2023, 18:14. [facility], CT, CT HEAD/BRAIN WO CON, 09/23/2020, 14:44. FINDINGS: Image quality: Diagnostic BRAIN: CSF spaces: Ventricles are normal in size and shape. Basal cisterns are patent. Brain: As described on the accompanying noncontrast head CT report, there is an extra-axial fluid collection seen adjacent to the left parietal lobe. No intraparenchymal hemorrhage or masses are detected on this study. Skull and face: Calvarium and facial bones appear intact, without suspicious lesions. Orbits appear normal. Sinuses: Sinuses and mastoids are clear. HEAD CT ANGIOGRAPHY: Anterior circulation: Intracranial internal carotid arteries are normal in size and flow. The flow within the paired anterior cerebral arteries is normal and symmetric. The flow within the middle cerebral arteries is normal and symmetric. The anterior communicating artery is seen. No aneurysms are seen. Posterior circulation: Visualized portions of the vertebral arteries demonstrate normal caliber, and join to form a normal appearing basilar artery. There is a prominent right posterior communicating artery seen, with an accompanying diminutive right P1 segment. This is attributed to a type origin of the right posterior cerebral artery, which is considered to be a normal developmental variant of typically no clinical consequence. The flow within the posterior cerebral arteries is normal and symmetric. No aneurysms are seen. NECK CT ANGIOGRAPHY: Carotid system: The great vessels demonstrate a conventional anatomy as they arise from the aortic arch. The origins of the common carotid arteries appear patent. The common carotid arteries demonstrate normal caliber and courses. The bifurcation regions demonstrate atherosclerotic irregularity and calcification, with 80% narrowing seen involving both proximal internal carotid arteries. The more distal internal carotid arteries demonstrate normal course and caliber. Posterior circulation: The origins of the vertebral arteries both appear widely patent. The more superior extracranial portions of both vertebral arteries also demonstrate normal courses and calibers. They join to form a normal appearing basilar artery. Soft tissues: Visualized neck soft tissues demonstrate no suspicious abnormalities. A left-sided pacer device is partially seen. Bones: No suspicious bony lesions. Visualized cervical spine appears normally aligned. Moderate lower cervical spine degenerative change can be seen. IMPRESSION: Extra-axial fluid collection seen adjacent to the left parietal lobe, which is attributed to subdural hemorrhage. No significant intracranial arterial abnormality is seen. 80% narrowing can be seen involving the origins of both internal carotid arteries. Additional findings: Moderate lower cervical spine degenerative change Pacer device Any quantitative measurements of stenosis were performed using NASCET criteria. Dictated by: Joo Chaves M.D. on 08/31/2023 at 17:43 Approved by: Joo Chaves M.D. on 08/31/2023 at 17:[address]: Radiologist's Impression: [address] [address] [address] Scan Report Signed Patient: Pat Thayer MR#: [id number] : 1950 Acct:[id number] Age/Sex: 72 / F Date of Service: 08/31/23 Loc: ED Accession Number: [id number] Procedure: CT head/brain wo con Ordering Provider: Latosha Curry D.O. PROCEDURE: CT HEAD/BRAIN WO CON INDICATIONS: repeat head CT re SDH TECHNIQUE: Noncontrast 4.5 mm thick angled axial sections acquired from the foramen magnum to the vertex, with coronal and sagittal reformats. For radiation dose reduction, the following was used: automated exposure control, adjustment of mA and/or kV according to patient size. COMPARISON: [facility], CT, CT HEAD/BRAIN WO CON, 09/23/2020, 14:44. FINDINGS: Image quality: Diagnostic. CSF spaces: Compared to prior CT at 6:14 p.m., there is stable hyperdense extra-axial fluid collection adjacent to the left parietal lobe measuring up to 1.3 cm in thickness on coronal images (4/29), previously 1.1 cm (remeasured, coronal series 4, image 31). There is increased hyperdensity and thickness along the falx measuring up to 0.4 cm (4/29). Similar mild mass effect on adjacent sulci. Basal cisterns are patent. Lateral ventricles are symmetric in size and shape. Brain: No intracranial bleeds or masses. There is cerebral volume loss for age, with resultant ventricular and sulcal prominence. There are periventricular and deep white matter chronic small vessel ischemic changes. There is intracranial internal carotid artery atherosclerosis. Skull and face: Calvarium and visualized facial bones appear intact, without suspicious lesions. Sinuses: Visualized sinuses and mastoids are clear. IMPRESSION: Compared to prior CT at 6:14 p.m., there is mildly increased size of left parietal extra-axial hyperdense fluid collection consistent with subdural hematoma with increasing layering blood in the falx. Similar mass effect on adjacent sulci. No midline shift. Approved by: Lashay Moe M.D.,Ph.D. on 08/31/2023 at 23:30 ECG Data Attestation: I personally reviewed and interpreted this ECG as follows: Interpretation: Ventricularly paced rhythm rate of 62 QRS of 100 QTC of 432, no acute ST elevation patient does have T-wave inversion in 2 3 and AVF. MDM Narrative Medical decision making narrative: 72-year-old female with recent TAVR replaced 2 weeks ago who presents with complaint of sudden onset headache, unequal pupils, left facial numbness and of the hand. Patient states headache still present numbness and tingling have resolved. People still dilated. Patient is quite hypertensive on arrival and they note she has been elevated in the 180s systolic in the morning throughout the week. No other acute neurologic changes NIH. Labs white count 11.2 hemoglobin 11.4 platelets of 363. Chemistries of 140 potassium 4.9 chloride of 106 CO2 of 27 BUN of 40 with a creatinine 2.08, glucose of 105 LFTs are negative troponin 0.021 EKG shows intermittently paced rhythm Imaging including head CT shows an extra-axial fluid collection seen adjacent to left parietal lobe attributed subdural hemorrhage meningeal aortic possible but no similar lesions CT angio shows extra axial fluid collection seen which is attributed subdural hemorrhage no significant intracranial acute abnormality 80% narrowing, moderate lower cervical spine degenerative change, pacer device Chest x-ray Patient's initial glucose is 98, initial NIH is 0 although patient does have unequal pupils. Patient's CT imaging does show what appears to be a left subdural in the left parietal lobe, patient is complaining of left sudden onset of headache. She is on Kcentra we will likely reverse but would like to talk with Neurology or Neurosurgery 1st as she just had a TAVR 2 weeks ago. Blood pressure improved to 180 systolic after 10 of labetalol. Radiology called report for SDH, appears acute to subacute, based on patient's abrupt onset of symptoms suspect acute. Spoke with patient and family, DNR/DNI but is open to interventions and would potentially be open to surgical interventions and required intubation for that. Spoke with [facility], Dr. Layne: Reviewed imaging with the attending. No recommendations to reverse. Discussed patient does have acute bleed we will talk to Neurosurgery for their recommendations. Did discuss would like to transfer for acute bleed. Discussed Kcentra, they recommend no reversal at this time. [address] Jacobs, cardiology [place]. States patient is on warfarin more for her chronic atrial fibrillation from TAVR perspective can reverse as needed. [id number] Nicole, neurosurgery at [facility]/. Asked for repeat head CT at 4 hours if stable can discharge home, would ask that patient hold her aspirin and warfarin for 3 days. Goal blood pressure would be 160 systolic or less. If enlarged please to contact back and they would accept for transfer. Re-contacted [facility] [address] shows mild increased size of left parietal extra-axial hyperdense fluid collection consistent with subdural increased layering blood in the falx. Patient was given vitamin K and Kcentra. Patient accepted at [facility] for transfer to [facility] ED, ALS transport by Dr. Nicole, neurosurgery. Recheck 319, patient sleeping, easily awakened, states headache is very mild, uses SD to be much more equal at this time. Patient does not have any persistent numbness or tingling, no other neurologic changes. Updated patient on plan for transfer, plan for transport around 6:45 a.m. this morning. Transport arrived, patient continues to be stable. Critical Care Time Critical Care Time Critical Care Time: Yes Total Critical Care Time: 50 Attestation: The high probability of a clinically significant, sudden or life threatening deterioration of the neurologic, system(s) required my full and direct attention, intervention and personal management. The aggregate critical care time was [--] minutes. This time is in addition to time spent performing reported procedures but includes the following: [x] Data Review and interpretation [x] Patient assessment and monitoring of vital signs [x] Documentation [x] Medication orders and management Discharge Plan Departure Patient Disposition: [facility] Clinical Impression: Acute subdural hematoma Prescriptions: No Action metformin 500 mg tablet See Rx Instructions .ROUTE .COMPLEX Qty: 180 3RF Hold Instructions: SHIRA Dose Instruction: TAKE 1 TABLET BY MOUTH TWICE DAILY Rx Instructions: TAKE 1 TABLET BY MOUTH TWICE DAILY paroxetine HCl 40 mg tablet 40 mg PO DAILY Qty: 180 3RF levothyroxine 125 mcg tablet 125 mcg PO DAILY Qty: 90 1RF amlodipine 5 mg tablet 5 mg PO DAILY oxybutynin chloride 10 mg tablet extended release 24hr 10 mg PO DAILY estradiol 0.01 % (0.1 mg/gram) cream 1 g vaginal 2XW warfarin 5 mg tablet See Rx Instructions .ROUTE .COMPLEX Qty: 105 12RF Dose Instruction: TAKE ONE-HALF TABLET BY MOUTH WEDNESDAY AND TUESDAY AND 1 TABLET ALL OTHER DAYS, OR DIRECTED Rx Instructions: Take 1 tablet (5mg) total daily or as directed. flecainide 50 mg tablet 50 mg PO BID Referrals: Jacques Barry DO [Primary Care Provider] -
--- NOTE | 2023-08-31 18:11 | DI.CT.S_ITS ---
PROCEDURE: CT STROKE INDICATIONS: Positive BE-FAST, Stroke symptoms TECHNIQUE: Noncontrast 4.5 mm thick angled axial sections acquired from the foramen magnum to the vertex, with coronal reformats. For radiation dose reduction, the following was used: automated exposure control, adjustment of mA and/or kV according to patient size. COMPARISON: [facility], CT, CT ANGIO HEAD AND NECK, 08/31/2023, 18:14. [facility], CT, CT HEAD/BRAIN WO CON, 09/23/2020, 14:44. FINDINGS: Image quality: Diagnostic. CSF spaces: Basal cisterns are patent. The ventricles are symmetric in size and shape. Brain: There is a moderately hyperintense extra-axial fluid collection seen adjacent to the left parietal lobe.4 this measures 32 x 19 mm in greatest axial dimension. There is mild mass effect seen upon the adjacent parietal lobe. No intraparenchymal hemorrhage can be seen. There is cerebral volume loss for age, with resultant ventricular and sulcal prominence. There are periventricular and deep white matter chronic small vessel ischemic changes. There is intracranial internal carotid artery atherosclerosis. Skull and face: Calvarium and visualized facial bones appear intact, without suspicious lesions. Sinuses: Visualized sinuses and mastoids are clear. IMPRESSION: There is an extra-axial fluid collection seen adjacent to the left parietal lobe, which is attributed to subdural hemorrhage. Meningioma is theoretically possible, yet no similar lesion can be seen on the 2020 examination. No intraparenchymal hemorrhage can be seen. Note: Case discussed by telephone with Dr. Curry at 6:39 p.m. [place] time on August 31, 2023. This study fulfills neurological imaging criteria for inclusion or exclusion of acute stroke therapies based on available published neurological guidelines. Dictated by: Joo Chaves M.D. on 08/31/2023 at 17:36 Approved by: Joo Chaves M.D. on 08/31/2023 at 17:43
--- NOTE | 2023-08-31 18:11 | DI.CT.S_ITS ---
PROCEDURE: CT ANGIO HEAD AND NECK INDICATIONS: htn TECHNIQUE: After the administration of intravenous contrast, 1 mm thick sections acquired from the aortic arch through the [place] of [place]. 3-dimensional otmoqod-vbluvuhhh-xbrjipfwzg (MIP) and/or volume rendering reformats were acquired of the central intracranial vasculature and neck separately. For radiation dose reduction, the following was used: automated exposure control, adjustment of mA and/or kV according to patient size. COMPARISON: [facility], CT, CT STROKE, 08/31/2023, 18:14. [facility], CT, CT HEAD/BRAIN WO CON, 09/23/2020, 14:44. FINDINGS: Image quality: Diagnostic BRAIN: CSF spaces: Ventricles are normal in size and shape. Basal cisterns are patent. Brain: As described on the accompanying noncontrast head CT report, there is an extra-axial fluid collection seen adjacent to the left parietal lobe. No intraparenchymal hemorrhage or masses are detected on this study. Skull and face: Calvarium and facial bones appear intact, without suspicious lesions. Orbits appear normal. Sinuses: Sinuses and mastoids are clear. HEAD CT ANGIOGRAPHY: Anterior circulation: Intracranial internal carotid arteries are normal in size and flow. The flow within the paired anterior cerebral arteries is normal and symmetric. The flow within the middle cerebral arteries is normal and symmetric. The anterior communicating artery is seen. No aneurysms are seen. Posterior circulation: Visualized portions of the vertebral arteries demonstrate normal caliber, and join to form a normal appearing basilar artery. There is a prominent right posterior communicating artery seen, with an accompanying diminutive right P1 segment. This is attributed to a type origin of the right posterior cerebral artery, which is considered to be a normal developmental variant of typically no clinical consequence. The flow within the posterior cerebral arteries is normal and symmetric. No aneurysms are seen. NECK CT ANGIOGRAPHY: Carotid system: The great vessels demonstrate a conventional anatomy as they arise from the aortic arch. The origins of the common carotid arteries appear patent. The common carotid arteries demonstrate normal caliber and courses. The bifurcation regions demonstrate atherosclerotic irregularity and calcification, with 80% narrowing seen involving both proximal internal carotid arteries. The more distal internal carotid arteries demonstrate normal course and caliber. Posterior circulation: The origins of the vertebral arteries both appear widely patent. The more superior extracranial portions of both vertebral arteries also demonstrate normal courses and calibers. They join to form a normal appearing basilar artery. Soft tissues: Visualized neck soft tissues demonstrate no suspicious abnormalities. A left-sided pacer device is partially seen. Bones: No suspicious bony lesions. Visualized cervical spine appears normally aligned. Moderate lower cervical spine degenerative change can be seen. IMPRESSION: Extra-axial fluid collection seen adjacent to the left parietal lobe, which is attributed to subdural hemorrhage. No significant intracranial arterial abnormality is seen. 80% narrowing can be seen involving the origins of both internal carotid arteries. Additional findings: Moderate lower cervical spine degenerative change Pacer device Any quantitative measurements of stenosis were performed using NASCET criteria. Dictated by: Joo Chaves M.D. on 08/31/2023 at 17:43 Approved by: Joo Chaves M.D. on 08/31/2023 at 17:45
--- NOTE | 2023-08-31 18:11 | EKG_ITS ---
[address] [address] Test Date: 2023-08-31 Pat Name: Pat Thayer Department: Room: Gender: Female [employer] In[employer]: GEMA : [id number] Requested By: Order Number: [id number] Reading MD: Harsha Ventura MD Measurements Intervals [place] Rate: 62 P: SD: QRS: -7 QRSD: 100 T: -50 QT: 426 QTc: 432 Interpretive Statements Ventricular-paced rhythm with occasional supraventricular complexes Electronically Signed On 09-01-2023 7:53:35 PDT by Harsha Ventura MD
--- NOTE | 2023-08-31 18:11 | DI.RAD.S_ITS ---
PROCEDURE: XR CHEST 1V INDICATIONS: Possible stroke TECHNIQUE: One view of the chest was acquired. COMPARISON: [facility], CR, XR CHEST 1V, 01/02/2021, 13:03. [facility], CR, XR CHEST 1V, 09/23/2020, 12:54. FINDINGS: Surgical changes and devices: Left chest wall pulse generator with dual-chamber electrode leads. Aortic valve device. Lungs and pleura: Low lung volumes. No dense consolidation or pleural effusion. Mediastinum: Normal heart size Bones and chest wall: Degenerative changes IMPRESSION: No acute radiographic abnormality on this limited single view study with low lung volumes. Dictated by: Bin Jimenez M.D. on 08/31/2023 at 19:43 Approved by: Bin Jimenez M.D. on 08/31/2023 at 19:44
[2023-08-31 18:21] LABS: Add Manual Diff / Slide Review NO; Basophils Absolute Auto 100 /uL (0-100); Eosinophils Absolute Auto 400 /uL (0-450); Eosinophils Percent Auto 3.5 % (2-4); Hemoglobin 11.4 g/dL (12.0-16.0); Lymphocytes Absolute Auto 1500 /uL (1100-4500); Lymphocytes Percent Auto 13.4 % (25-40); Mean Corpuscular HGB Conc 32.6 % (30-36); Mean Corpuscular Hemoglobin 27.3 PG (26-34); Mean Corpuscular Volume 83.8 fL (80-100); Monocytes Absolute Auto 1100 /uL (0-900); Monocytes Percent Auto 9.5 % (3-14); Neutrophils Absolute Auto 8200 /uL (1500-7000); Neutrophils Percent Auto 72.6 % (50-75); Platelet Count 363 X10^3/uL (150-400); Red Blood Cell Count 4.18 X10^6/uL (4.0-5.2); Red Cell Distribution Width 14.4 % (11.6-14.8); White Blood Cell Count 11.2 X10^3/uL (4.5-11.0)
[2023-08-31 18:29] LABS: Prothrombin Time 23.2 SECONDS (9.4-12.5)
[2023-08-31 18:31] LABS: PTT Partial Thromboplastin Tim 44 SECONDS (25.1-36.5)
[2023-08-31 18:32] LABS: Alanine Aminotransferase 11 IU/L (<35); Albumin 4.6 g/dL (3.5-5.0); Albumin Globulin Ratio 1.4 (1.0-2.8); Alkaline Phosphatase 92 U/L (38-126); Aspartate Aminotransferase 19 IU/L (14-36); BUN Creatinine Ratio 19.2 (6-22); Bilirubin Total 0.4 mg/dL (0.2-1.3); Blood Urea Nitrogen 40 mg/dL (7-17); Calcium 9.5 mg/dL (8.4-10.2); Carbon Dioxide 27 mmol/L (22-32); Chloride 106 mmol/L (98-107); Creatine Kinase 35 U/L (30-135); Estimated Glomerular Filt Rate 25 mL/min (>60); Globulin 3.4 g/dL (1.7-4.1); Glucose 105 mg/dL (80-110); HEMOLYSIS < 15 (0-50); Magnesium 1.9 mg/dL (1.6-2.3); Potassium 4.9 mmol/L (3.4-5.1); Sodium 140 mmol/L (137-145)
[2023-08-31] MEDS: LABETALOL 20 MG/4 ML SYRINGE 10 MG IV (18:35)
[2023-08-31] MEDS: ONDANSETRON 4 MG ODT SL (18:39)
[2023-08-31 18:44] LABS: Troponin I 0.021 ng/mL (0.01-0.034)
--- NOTE | 2023-08-31 20:04 | PC.NURSE ---
Standby assist to bedside commode.
[2023-08-31] MEDS: ACETAMINOPHEN IV 1,000 MG/100 ML VIAL 400 MG IV (20:05)
--- NOTE | 2023-08-31 22:03 | DI.CT.S_ITS ---
PROCEDURE: CT HEAD/BRAIN WO CON INDICATIONS: repeat head CT re SDH TECHNIQUE: Noncontrast 4.5 mm thick angled axial sections acquired from the foramen magnum to the vertex, with coronal and sagittal reformats. For radiation dose reduction, the following was used: automated exposure control, adjustment of mA and/or kV according to patient size. COMPARISON: [facility], CT, CT HEAD/BRAIN WO CON, 09/23/2020, 14:44. FINDINGS: Image quality: Diagnostic. CSF spaces: Compared to prior CT at 6:14 p.m., there is stable hyperdense extra-axial fluid collection adjacent to the left parietal lobe measuring up to 1.3 cm in thickness on coronal images (/), previously 1.1 cm (remeasured, coronal series 4, image 31). There is increased hyperdensity and thickness along the falx measuring up to 0.4 cm (/). Similar mild mass effect on adjacent sulci. Basal cisterns are patent. Lateral ventricles are symmetric in size and shape. Brain: No intracranial bleeds or masses. There is cerebral volume loss for age, with resultant ventricular and sulcal prominence. There are periventricular and deep white matter chronic small vessel ischemic changes. There is intracranial internal carotid artery atherosclerosis. Skull and face: Calvarium and visualized facial bones appear intact, without suspicious lesions. Sinuses: Visualized sinuses and mastoids are clear. IMPRESSION: Compared to prior CT at 6:14 p.m., there is mildly increased size of left parietal extra-axial hyperdense fluid collection consistent with subdural hematoma with increasing layering blood in the falx. Similar mass effect on adjacent sulci. No midline shift. Approved by: Lashay Moe M.D.,Ph.D. on 08/31/2023 at 23:30
--- NOTE | 2023-08-31 22:32 | PC.NURSE ---
per Royce BRENNAN, ok for pt to take home dose of losartan and flecainide at bedside.
[2023-09-01] VITALS (21 sets, daily range): BP systolic 139–171; BP diastolic 63–75; PULSE 59–63; RESP 10–24; O2SAT 92–97
[2023-09-01] MEDS: PHYTONADIONE (VIT K1) 10 MG in SODIUM CHLORIDE 0.9% 100 ML 202 MG IV (00:04)
[2023-09-01] MEDS: PROTHROMBIN CPLX(PCC)4FACT 2,000 UNIT in ISOOSMOTIC VEHICLE 0 ML 718.488 UNIT IV (00:10)
--- NOTE | 2023-09-01 05:35 | PC.NURSE ---
Pt denies any neurologic symptoms at this time. Denies any headache, numbness, weakness or tingling.
== END 2023-09-01 07:37 | disposition short-term general hospital (02) ==
PROVIDERS: Emergency Provider Emergency Medicine; PCP Family Medicine
DX: I62.01 Nontraumatic acute subdural hemorrhage (principal); I10 Essential (primary) hypertension; N18.9 Chronic kidney disease, unspecified; Z95.2 Presence of prosthetic heart valve; Z79.01 Long term (current) use of anticoagulants
CPT/HCPCS: 36415; 70450; 70496; 70498; 71045; 80053; 82550; 83735; 84484; 85025; 85610; 85730; 93005; 96365; 96367; 96368; 96375; 99285; 99291; J0136; J3430; J7168

== ENCOUNTER 2023-11-01 12:50 | Outpatient (RCR) | payer MEDICARE, SELFPAY | END 2023-11-01 14:50 | LOC: CAR 12:50 | PROVIDERS: PCP Family Medicine; Referring Provider Internal Medicine Interventional Cardiology; Visit Provider Internal Medicine Interventional Cardiology | DX: Z95.2 Presence of prosthetic heart valve (principal) | CPT/HCPCS: 93798 ==

== ENCOUNTER → 2023-11-04 12:58 | Outpatient (CLI) | payer MEDICARE, SELFPAY ==
[2023-11-04 13:31] LABS: Hematocrit 35.2 % (36-46); Hemoglobin 11.8 g/dL (12.0-16.0); Mean Corpuscular HGB Conc 33.6 % (30-36); Mean Corpuscular Hemoglobin 28.1 PG (26-34); Mean Corpuscular Volume 83.7 fL (80-100); Platelet Count 322 X10^3/uL (150-400); Red Blood Cell Count 4.21 X10^6/uL (4.0-5.2); Red Cell Distribution Width 15.4 % (11.6-14.8); White Blood Cell Count 7.7 X10^3/uL (4.5-11.0)
[2023-11-04 13:40] LABS: Estimated Glomerular Filt Rate 21 mL/min (>60)
[2023-11-04 13:43] LABS: BUN Creatinine Ratio 21.1 (6-22); Blood Urea Nitrogen 48 mg/dL (7-17); Calcium 10.2 mg/dL (8.4-10.2); Carbon Dioxide 24 mmol/L (22-32); Chloride 104 mmol/L (98-107); Estimated Glomerular Filt Rate 22 mL/min (>60); Glucose 130 mg/dL (80-110); HEMOLYSIS < 15 (0-50); Potassium 5.3 mmol/L (3.4-5.1); Sodium 135 mmol/L (137-145)
== END ==
PROVIDERS: Radiology Diagnostic Radiology; PCP Family Medicine; Referring Provider Internal Medicine Interventional Cardiology; Visit Provider Internal Medicine Interventional Cardiology
DX: Z95.2 Presence of prosthetic heart valve (principal); I35.0 Nonrheumatic aortic (valve) stenosis; D32.9 Benign neoplasm of meninges, unspecified
CPT/HCPCS: 36415; 80048; 82565; 85027

== ENCOUNTER → 2023-11-05 11:00 | Outpatient (CLI) | payer MEDICARE, SELFPAY ==
--- NOTE | 2023-11-05 11:03 | DI.CT.S_ITS ---
PROCEDURE: CT ANGIO HEAD INDICATIONS: MENINGIOMA TECHNIQUE: Precontrast 4.5 mm thick angled axial sections acquired from the foramen magnum to the vertex. After the administration of intravenous contrast, 1 mm thick sections acquired through the [place] of [place]. Postcontrast 4.5 mm thick sections then re-acquired from the foramen magnum to the vertex. 10 mm thick krqwyis-ogztflstx-dlncprguyl (MIP) reformats were acquired of the central intracranial vasculature. For radiation dose reduction, the following was used: automated exposure control, adjustment of mA and/or kV according to patient size. COMPARISON: [facility], CT, CT HEAD/BRAIN WO CON, 08/31/2023, 22:11. FINDINGS: Image quality: Diagnostic. Dural venous sinuses: The visualized dural venous sinuses are patent. Anterior circulation: Intracranial internal carotid arteries are normal in size and flow. The flow within the paired anterior cerebral arteries is normal and symmetric. The flow within the middle cerebral arteries is normal and symmetric. The anterior communicating artery is seen. No aneurysms are seen. Moderate atherosclerosis at the C6-C7 segments bilaterally appear Posterior circulation: Visualized portions of the vertebral arteries demonstrate normal caliber, and join to form a normal appearing basilar artery. Flow within the posterior cerebral arteries is normal and symmetric. Diminutive posterior communicating arteries No aneurysms are seen. CSF spaces: Ventricles are normal in size and shape. Basal cisterns are patent. No extra-axial fluid collections. Brain: No midline shift. No intracranial hemorrhage. [place]-white matter interface appears intact. 1.2 x 3.2 x 3.6 cm extra-axial, lenticular shaped, left parafalcine enhancing mass at the vertex (7/16; /25), with inferior displacement of the adjacent cortical gyri . CSF planes are present between the mass and the underlying brain parenchyma. On postcontrast images, hypervascularity within the mass is seen along its medial margin (12/132). Skull and face: Calvarium and facial bones appear intact, without suspicious lesions. No hyperostosis, particularly around the left parafalcine mass. Sinuses: Visualized sinuses and mastoids are clear. IMPRESSION: 1. No large vessel occlusion, dissection, or aneurysm of the visualized intracranial arterial vasculature. 2. 3.6 cm left parafalcine extra-axial mass, for which the differential diagnosis would include meningioma. Dictated by: Berhane Azar M.D. on 11/06/2023 at 18:05 Approved by: Berhane Azar M.D. on 11/06/2023 at 18:27
[2023-11-05 11:41] LABS: Estimated Glomerular Filt Rate 23 mL/min (>60)
== END ==
PROVIDERS: PCP Family Medicine; Referring Provider Physician Assistant; Visit Provider Physician Assistant
DX: D32.9 Benign neoplasm of meninges, unspecified (principal); Z79.899 Other long term (current) drug therapy; N18.4 Chronic kidney disease, stage 4 (severe)
CPT/HCPCS: 36415; 70496; 82565; Q9967

== ENCOUNTER → 2023-11-14 13:23 | Outpatient (CLI) | payer MEDICARE, SELFPAY ==
[2023-11-14 15:10] LABS: Add Manual Diff / Slide Review NO; Basophils Absolute Auto 100 /uL (0-100); Basophils Percent Auto 0.9 % (0-2); Eosinophils Absolute Auto 200 /uL (0-450); Eosinophils Percent Auto 2.2 % (2-4); Hematocrit 32.5 % (36-46); Hemoglobin 11.1 g/dL (12.0-16.0); Lymphocytes Absolute Auto 1100 /uL (1100-4500); Mean Corpuscular HGB Conc 34.1 % (30-36); Mean Corpuscular Hemoglobin 28.4 PG (26-34); Mean Corpuscular Volume 83.4 fL (80-100); Monocytes Absolute Auto 800 /uL (0-900); Monocytes Percent Auto 10.4 % (3-14); Neutrophils Absolute Auto 5600 /uL (1500-7000); Neutrophils Percent Auto 72.5 % (50-75); Platelet Count 301 X10^3/uL (150-400); Red Cell Distribution Width 15.2 % (11.6-14.8); White Blood Cell Count 7.7 X10^3/uL (4.5-11.0)
[2023-11-14 16:41] LABS: BUN Creatinine Ratio 19.5 (6-22); Blood Urea Nitrogen 42 mg/dL (7-17); Calcium 9.3 mg/dL (8.4-10.2); Carbon Dioxide 21 mmol/L (22-32); Chloride 104 mmol/L (98-107); Creatine Kinase 40 U/L (30-135); Estimated Glomerular Filt Rate 23 mL/min (>60); Glucose 108 mg/dL (80-110); HEMOLYSIS < 15 (0-50); Phosphorous 4.1 mg/dL (2.8-4.1); Potassium 4.9 mmol/L (3.4-5.1); Sodium 135 mmol/L (137-145); Uric Acid 8.3 mg/dL (2.5-6.2)
== END ==
PROVIDERS: PCP Family Medicine; Referring Provider Internal Medicine Nephrology; Visit Provider Internal Medicine Nephrology
DX: N17.8 Other acute kidney failure (principal); N18.32 Chronic kidney disease, stage 3b
CPT/HCPCS: 36415; 80069; 82310; 82550; 83970; 84550; 85025

== ENCOUNTER → 2023-12-28 10:36 | Outpatient (CLI) | payer MEDICARE, SELFPAY ==
[2023-12-28 11:52] LABS: Add Manual Diff / Slide Review NO; Basophils Absolute Auto 100 /uL (0-100); Basophils Percent Auto 1.8 % (0-2); Eosinophils Absolute Auto 200 /uL (0-450); Eosinophils Percent Auto 2.5 % (2-4); Hematocrit 29.5 % (36-46); Hemoglobin 9.7 g/dL (12.0-16.0); Lymphocytes Absolute Auto 700 /uL (1100-4500); Lymphocytes Percent Auto 11.1 % (25-40); Mean Corpuscular Hemoglobin 28.1 PG (26-34); Mean Corpuscular Volume 85.2 fL (80-100); Monocytes Absolute Auto 500 /uL (0-900); Monocytes Percent Auto 7.7 % (3-14); Neutrophils Absolute Auto 5000 /uL (1500-7000); Neutrophils Percent Auto 76.9 % (50-75); Platelet Count 311 X10^3/uL (150-400); Red Blood Cell Count 3.46 X10^6/uL (4.0-5.2); White Blood Cell Count 6.5 X10^3/uL (4.5-11.0)
[2023-12-28 12:13] LABS: Alanine Aminotransferase 19 IU/L (<35); Albumin 4.2 g/dL (3.5-5.0); Albumin Globulin Ratio 1.6 (1.0-2.8); Alkaline Phosphatase 79 U/L (38-126); Aspartate Aminotransferase 19 IU/L (14-36); BUN Creatinine Ratio 14.5 (6-22); Bilirubin Total 0.4 mg/dL (0.2-1.3); Blood Urea Nitrogen 43 mg/dL (7-17); Calcium 9.7 mg/dL (8.4-10.2); Carbon Dioxide 20 mmol/L (22-32); Chloride 104 mmol/L (98-107); Cholesterol 303 mg/dL (140-199); Estimated Glomerular Filt Rate 16 mL/min (>60); Globulin 2.7 g/dL (1.7-4.1); Glucose 172 mg/dL (80-110); HDL Cholesterol 74 mg/dL (40-60); HEMOLYSIS < 15 (0-50); LDL Cholesterol Calculated 158 mg/dL (<100); Potassium 5.2 mmol/L (3.4-5.1); Sodium 135 mmol/L (137-145); Total Protein 6.9 g/dL (6.3-8.2); Triglycerides 356 mg/dL (35-150)
[2023-12-28 12:19] LABS: Hemoglobin A1C% w Est Avg Glu 6.6 % (4.0-6.0)
[2023-12-28 12:41] LABS: TSH w/ Reflex to FT4 9.66 uIU/mL (0.47-4.68)
[2023-12-28 13:12] LABS: Free T4, Direct Thyroxine 1.64 ng/dL (0.78-2.19)
== END ==
PROVIDERS: PCP Family Medicine; Referring Provider Family Medicine; Visit Provider Family Medicine
DX: Z48.811 Encounter for surgical aftercare following surgery on the nervous system (principal); N18.4 Chronic kidney disease, stage 4 (severe); D32.0 Benign neoplasm of cerebral meninges; E78.5 Hyperlipidemia, unspecified; E03.9 Hypothyroidism, unspecified; E11.21 Type 2 diabetes mellitus with diabetic nephropathy; I12.9 Hypertensive chronic kidney disease with stage 1 through stage 4 chronic kidney disease, or unspecified chronic kidney disease
CPT/HCPCS: 36415; 80053; 80061; 83036; 84439; 84443; 85025

== ENCOUNTER → 2024-02-20 14:33 | Outpatient (CLI) | payer MEDICARE, SELFPAY ==
--- NOTE | 2024-02-20 | DI.CT.S_ITS ---
PROCEDURE: CT HEAD/BRAIN WO CON INDICATIONS: meningioma, pseudomeningocele TECHNIQUE: Noncontrast 4.5 mm thick angled axial sections acquired from the foramen magnum to the vertex, with coronal and sagittal reformats. For radiation dose reduction, the following was used: automated exposure control, adjustment of mA and/or kV according to patient size. COMPARISON: [facility], CT, CT HEAD/BRAIN WO CON, 08/31/2023, 22:11. FINDINGS: Image quality: Diagnostic. CSF spaces: Basal cisterns are patent. No extra-axial fluid collections. The ventricles are symmetric in size and shape. Brain: No intracranial bleeds or masses. There is cerebral volume loss for age, with resultant ventricular and sulcal prominence. There are periventricular and deep white matter chronic small vessel ischemic changes. There is intracranial internal carotid artery atherosclerosis. Skull and face: Left-sided craniotomy changes. Large air-fluid density within the scalp adjacent to the craniotomy changes, consistent with history of pseudomeningocele. Calvarium and visualized facial bones appear intact, without suspicious lesions. Sinuses: Visualized sinuses and mastoids are clear. 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 No acute intracranial abnormalities. Dictated by: Gurpreet Marquez M.D. on 02/20/2024 at 16:10 Approved by: Gurpreet Marquez M.D. on 02/20/2024 at 16:12
[2024-02-20 15:02] LABS: Estimated Glomerular Filt Rate 16 mL/min (>60)
== END ==
PROVIDERS: PCP Family Medicine
DX: D32.0 Benign neoplasm of cerebral meninges (principal); G97.82 Other postprocedural complications and disorders of nervous system; G96.198 Other disorders of meninges, not elsewhere classified; R63.0 Anorexia; I65.29 Occlusion and stenosis of unspecified carotid artery
CPT/HCPCS: 36415; 70450; 82565

== ENCOUNTER → 2024-02-27 10:14 | Outpatient (CLI) | payer MEDICARE, SELFPAY ==
[2024-02-27 11:48] LABS: HEMOLYSIS < 15 (0-50); Iron 17 ug/dL (37-170)
[2024-02-27 12:00] LABS: Percent Iron Saturation 5 % (15-50); Total Iron Binding Capacity 325 ug/dL (265-497); Transferrin 288 mg/dL (206-381)
[2024-02-27 12:20] LABS: Reticulocyte Count, Percent 2.5 % (1.1-2.6)
[2024-02-27 14:07] LABS: Vitamin B12 413 pg/mL (239-931)
== END ==
PROVIDERS: PCP Family Medicine; Referring Provider Internal Medicine Cardiovascular Disease; Visit Provider Internal Medicine Cardiovascular Disease
DX: D64.9 Anemia, unspecified (principal)
CPT/HCPCS: 36415; 82607; 82746; 83540; 83550; 85045

== ENCOUNTER → 2024-03-05 11:15 | Outpatient (CLI) | payer MEDICARE, SELFPAY | PROVIDERS: PCP Family Medicine; Referring Provider Internal Medicine Cardiovascular Disease; Visit Provider Internal Medicine Cardiovascular Disease | DX: R06.02 Shortness of breath (principal); Z79.899 Other long term (current) drug therapy; R94.2 Abnormal results of pulmonary function studies | CPT/HCPCS: 94060; 94726; 94729 ==

== ENCOUNTER → 2024-03-08 10:21 | Outpatient (CLI) | payer MEDICARE, SELFPAY ==
[2024-03-08 12:19] LABS: Alanine Aminotransferase 16 IU/L (<35); Albumin 4.5 g/dL (3.5-5.0); Albumin Globulin Ratio 1.5 (1.0-2.8); Alkaline Phosphatase 84 U/L (38-126); Aspartate Aminotransferase 22 IU/L (14-36); BUN Creatinine Ratio 14.9 (6-22); Bilirubin Total 0.3 mg/dL (0.2-1.3); Blood Urea Nitrogen 53 mg/dL (7-17); Calcium 9.6 mg/dL (8.4-10.2); Carbon Dioxide 23 mmol/L (22-32); Chloride 105 mmol/L (98-107); Cholesterol 247 mg/dL (140-199); Estimated Glomerular Filt Rate 13 mL/min (>60); Glucose 164 mg/dL (80-110); HDL Cholesterol 57 mg/dL (40-60); HEMOLYSIS < 15 (0-50); LDL Cholesterol Calculated 152 mg/dL (<100); Sodium 137 mmol/L (137-145); Total Protein 7.5 g/dL (6.3-8.2); Triglycerides 188 mg/dL (35-150)
== END ==
LOC: LAB 10:24
PROVIDERS: PCP Family Medicine; Referring Provider Internal Medicine Cardiovascular Disease; Visit Provider Internal Medicine Cardiovascular Disease
DX: I25.10 Atherosclerotic heart disease of native coronary artery without angina pectoris (principal); Z79.899 Other long term (current) drug therapy
CPT/HCPCS: 36415; 80053; 80061; 84443

== ENCOUNTER → 2024-03-16 10:49 | Outpatient (CLI) | payer MEDICARE, SELFPAY ==
[2024-03-19 10:23] LABS: Fecal Immunochemical Test Negative (Negative)
== END ==
PROVIDERS: PCP Family Medicine; Referring Provider Internal Medicine Cardiovascular Disease; Visit Provider Internal Medicine Cardiovascular Disease
DX: D64.9 Anemia, unspecified (principal); I25.10 Atherosclerotic heart disease of native coronary artery without angina pectoris
CPT/HCPCS: 82274

== ENCOUNTER → 2024-04-06 09:47 | Outpatient (CLI) | payer MEDICARE, SELFPAY ==
[2024-04-06 10:26] LABS: Add Manual Diff / Slide Review NO; Basophils Absolute Auto 100 /uL (0-100); Eosinophils Absolute Auto 200 /uL (0-450); Eosinophils Percent Auto 2.1 % (2-4); Hematocrit 26.2 % (36-46); Hemoglobin 8.3 g/dL (12.0-16.0); Lymphocytes Absolute Auto 900 /uL (1100-4500); Lymphocytes Percent Auto 10.3 % (25-40); Mean Corpuscular HGB Conc 31.8 % (30-36); Mean Corpuscular Hemoglobin 25.1 PG (26-34); Monocytes Absolute Auto 600 /uL (0-900); Monocytes Percent Auto 6.9 % (3-14); Neutrophils Absolute Auto 7100 /uL (1500-7000); Neutrophils Percent Auto 79.7 % (50-75); Platelet Count 474 X10^3/uL (150-400); Red Blood Cell Count 3.32 X10^6/uL (4.0-5.2); Red Cell Distribution Width 15.3 % (11.6-14.8); White Blood Cell Count 8.9 X10^3/uL (4.5-11.0)
[2024-04-06 10:42] LABS: BUN Creatinine Ratio 17.8 (6-22); Blood Urea Nitrogen 51 mg/dL (7-17); Carbon Dioxide 19 mmol/L (22-32); Chloride 106 mmol/L (98-107); Estimated Glomerular Filt Rate 17 mL/min (>60); Glucose 173 mg/dL (80-110); HEMOLYSIS 29 (0-50); Sodium 137 mmol/L (137-145)
[2024-04-06 10:50] LABS: Potassium 5.5 mmol/L (3.4-5.1)
== END ==
PROVIDERS: PCP Family Medicine; Referring Provider Nurse Practitioner Family; Visit Provider Nurse Practitioner Family
DX: I48.0 Paroxysmal atrial fibrillation (principal)
CPT/HCPCS: 36415; 80048; 85025

== ENCOUNTER → 2024-04-20 11:52 | Outpatient (CLI) | payer MEDICARE, SELFPAY ==
[2024-04-20 13:08] LABS: Cholesterol 244 mg/dL (140-199); HDL Cholesterol 66 mg/dL (40-60); LDL Cholesterol Calculated 152 mg/dL (<100); Triglycerides 130 mg/dL (35-150)
== END ==
PROVIDERS: PCP Family Medicine; Referring Provider Internal Medicine Cardiovascular Disease; Visit Provider Internal Medicine Cardiovascular Disease
DX: E78.5 Hyperlipidemia, unspecified (principal)
CPT/HCPCS: 36415; 80061

== ENCOUNTER → 2024-04-24 09:32 | Outpatient (CLI) | payer MEDICARE, SELFPAY ==
[2024-04-24 10:47] LABS: Alanine Aminotransferase 14 IU/L (<35); Albumin 4.1 g/dL (3.5-5.0); Albumin Globulin Ratio 1.5 (1.0-2.8); Alkaline Phosphatase 75 U/L (38-126); Aspartate Aminotransferase 19 IU/L (14-36); BUN Creatinine Ratio 16.7 (6-22); Bilirubin Total 0.2 mg/dL (0.2-1.3); Blood Urea Nitrogen 60 mg/dL (7-17); Calcium 9.2 mg/dL (8.4-10.2); Carbon Dioxide 16 mmol/L (22-32); Chloride 109 mmol/L (98-107); Estimated Glomerular Filt Rate 13 mL/min (>60); Globulin 2.7 g/dL (1.7-4.1); Glucose 145 mg/dL (80-110); HEMOLYSIS < 15 (0-50); Potassium 4.7 mmol/L (3.4-5.1); Sodium 139 mmol/L (137-145); Total Protein 6.8 g/dL (6.3-8.2)
[2024-04-24 11:19] LABS: Thyroid Stimulating Hormone 5.21 uIU/mL (0.47-4.68)
== END ==
LOC: LAB 09:33
PROVIDERS: PCP Family Medicine; Referring Provider Internal Medicine Cardiovascular Disease; Visit Provider Internal Medicine Cardiovascular Disease
DX: Z51.81 Encounter for therapeutic drug level monitoring (principal); Z79.899 Other long term (current) drug therapy
CPT/HCPCS: 36415; 80053; 84443

== ENCOUNTER → 2024-05-16 10:37 | Outpatient (CLI) | payer MEDICARE, SELFPAY ==
[2024-05-16 11:16] LABS: Add Manual Diff / Slide Review NO; Basophils Absolute Auto 100 /uL (0-100); Basophils Percent Auto 0.8 % (0-2); Eosinophils Absolute Auto 100 /uL (0-450); Eosinophils Percent Auto 1.5 % (2-4); Hematocrit 28.5 % (36-46); Hemoglobin 9.1 g/dL (12.0-16.0); Lymphocytes Absolute Auto 1100 /uL (1100-4500); Lymphocytes Percent Auto 12.6 % (25-40); Mean Corpuscular Volume 81.3 fL (80-100); Monocytes Absolute Auto 700 /uL (0-900); Neutrophils Absolute Auto 6500 /uL (1500-7000); Neutrophils Percent Auto 77.1 % (50-75); Platelet Count 368 X10^3/uL (150-400); Red Cell Distribution Width 20.6 % (11.6-14.8); White Blood Cell Count 8.4 X10^3/uL (4.5-11.0)
[2024-05-16 11:32] LABS: BUN Creatinine Ratio 16.3 (6-22); Blood Urea Nitrogen 61 mg/dL (7-17); Carbon Dioxide 16 mmol/L (22-32); Chloride 109 mmol/L (98-107); Estimated Glomerular Filt Rate 12 mL/min (>60); Glucose 133 mg/dL (80-110); HEMOLYSIS < 15 (0-50); Sodium 139 mmol/L (137-145)
[2024-05-16 11:33] LABS: Potassium 5.4 mmol/L (3.4-5.1)
[2024-05-16 11:45] LABS: Anisocytosis 2+
== END ==
PROVIDERS: PCP Family Medicine; Referring Provider Internal Medicine Cardiovascular Disease; Visit Provider Internal Medicine Cardiovascular Disease
DX: I48.91 Unspecified atrial fibrillation (principal); I48.92 Unspecified atrial flutter
CPT/HCPCS: 36415; 80048; 85025

== ENCOUNTER → 2024-06-12 11:08 | Outpatient (CLI) | payer MEDICARE, SELFPAY | PROVIDERS: PCP Family Medicine; Referring Provider Family Medicine; Visit Provider Internal Medicine Cardiovascular Disease | DX: Z79.899 Other long term (current) drug therapy (principal); R94.2 Abnormal results of pulmonary function studies | CPT/HCPCS: 94060; 94726; 94729 ==

== ENCOUNTER → 2024-06-21 12:31 | Outpatient (CLI) | payer MEDICARE, SELFPAY ==
[2024-06-21 13:08] LABS: Add Manual Diff / Slide Review NO; Basophils Absolute Auto 100 /uL (0-100); Basophils Percent Auto 0.8 % (0-2); Eosinophils Absolute Auto 200 /uL (0-450); Eosinophils Percent Auto 2.1 % (2-4); Hematocrit 29.3 % (36-46); Hemoglobin 9.9 g/dL (12.0-16.0); Lymphocytes Absolute Auto 1400 /uL (1100-4500); Lymphocytes Percent Auto 14.9 % (25-40); Mean Corpuscular HGB Conc 33.6 % (30-36); Mean Corpuscular Volume 83.3 fL (80-100); Monocytes Absolute Auto 700 /uL (0-900); Monocytes Percent Auto 8.1 % (3-14); Neutrophils Absolute Auto 6800 /uL (1500-7000); Neutrophils Percent Auto 74.1 % (50-75); Platelet Count 365 X10^3/uL (150-400); Red Blood Cell Count 3.52 X10^6/uL (4.0-5.2); Red Cell Distribution Width 20.1 % (11.6-14.8); White Blood Cell Count 9.2 X10^3/uL (4.5-11.0)
[2024-06-21 13:21] LABS: Anisocytosis 2+; Poikilocytosis 1+
== END ==
PROVIDERS: PCP Family Medicine; Referring Provider Family Medicine; Visit Provider Internal Medicine Interventional Cardiology
DX: Z95.2 Presence of prosthetic heart valve (principal)
CPT/HCPCS: 36415; 85025

== ENCOUNTER → 2024-08-17 09:59 | Outpatient (CLI) | payer MEDICARE, SELFPAY ==
[2024-08-17 11:15] LABS: BUN Creatinine Ratio 16.5 (6-22); Blood Urea Nitrogen 51 mg/dL (7-17); Calcium 10.2 mg/dL (8.4-10.2); Carbon Dioxide 20 mmol/L (22-32); Chloride 111 mmol/L (98-107); Estimated Glomerular Filt Rate 15 mL/min (>60); Glucose 130 mg/dL (70-99); HEMOLYSIS < 15 (0-50); Sodium 140 mmol/L (137-145)
[2024-08-17 11:16] LABS: Potassium 5.5 mmol/L (3.4-5.1)
== END ==
PROVIDERS: PCP Family Medicine; Referring Provider Nurse Practitioner Acute Care; Visit Provider Nurse Practitioner Acute Care
DX: I10 Essential (primary) hypertension (principal)
CPT/HCPCS: 36415; 80048

== ENCOUNTER → 2024-08-20 09:13 | Outpatient (CLI) | payer MEDICARE, SELFPAY ==
[2024-08-20 10:23] LABS: BUN Creatinine Ratio 15.5 (6-22); Blood Urea Nitrogen 42 mg/dL (7-17); Calcium 9.9 mg/dL (8.4-10.2); Carbon Dioxide 18 mmol/L (22-32); Chloride 110 mmol/L (98-107); Estimated Glomerular Filt Rate 18 mL/min (>60); Glucose 139 mg/dL (70-99); HEMOLYSIS < 15 (0-50); Potassium 5.3 mmol/L (3.4-5.1); Sodium 139 mmol/L (137-145)
== END ==
PROVIDERS: PCP Family Medicine; Referring Provider Physician Assistant; Visit Provider Physician Assistant
DX: E87.5 Hyperkalemia (principal); N28.9 Disorder of kidney and ureter, unspecified
CPT/HCPCS: 36415; 80048

== ENCOUNTER → 2024-09-13 10:12 | Outpatient (CLI) | payer MEDICARE, SELFPAY ==
[2024-09-13 11:20] LABS: INR 2.0 (0.9-1.3); Prothrombin Time 22.0 SECONDS (9.4-12.5)
[2024-09-13 11:25] LABS: Alanine Aminotransferase 15 IU/L (<35); Albumin 4.3 g/dL (3.5-5.0); Albumin Globulin Ratio 1.3 (1.0-2.8); Alkaline Phosphatase 80 U/L (38-126); Blood Urea Nitrogen 43 mg/dL (7-17); Calcium 9.7 mg/dL (8.4-10.2); Carbon Dioxide 18 mmol/L (22-32); Chloride 110 mmol/L (98-107); Estimated Glomerular Filt Rate 17 mL/min (>60); Globulin 3.2 g/dL (1.7-4.1); Glucose 179 mg/dL (70-99); HEMOLYSIS < 15 (0-50); Potassium 5.1 mmol/L (3.4-5.1); Sodium 138 mmol/L (137-145); Total Protein 7.5 g/dL (6.3-8.2)
[2024-09-13 11:58] LABS: Thyroid Stimulating Hormone 1.15 uIU/mL (0.47-4.68)
== END ==
PROVIDERS: PCP Family Medicine; Referring Provider Family Medicine; Visit Provider Internal Medicine Cardiovascular Disease
DX: Z79.899 Other long term (current) drug therapy (principal); Z79.01 Long term (current) use of anticoagulants
CPT/HCPCS: 80053; 84443; 85610

== ENCOUNTER 2024-10-25 12:54 | Emergency (ER) | payer MEDICARE, SELFPAY ==
[2024-10-25] VITALS (12 sets, daily range): BP systolic 128–187; BP diastolic 60–88; PULSE 60–63; RESP 14; TEMP 36.3; O2SAT 91–96; BMI 37.2
--- NOTE | 2024-10-25 13:05 | ED_ITS ---
HPI - General Adult General Chief complaint: Fall Stated complaint: Slip/fall in tub,left upper arm pain,+deformity Time Seen by Provider: 10/25/24 13:05 History of Present Illness HPI narrative: PMHx significant for Atrial fibrillation, hypothyroidism, HTN, meningioma, CKD stage 4, depression, hyperlipidemia, UTI, T2DM Pt presents to the ER after a fall in the bathtub this morning. The patient, Pat, a 73-year-old female, reports she was getting into the tub to take a shower when she slipped. She grabbed a handicap bar to brace herself but was unable to prevent the fall. She landed on her buttocks and experienced pain in her left arm. The patient denies hitting her head, and reports no headache, neck pain, chest pain, or abdominal pain. She was unable to get out of the tub on her own after the fall. The patient's primary complaint is pain in her left arm, which appears swollen in the upper region. She denies any previous fractures in this arm. The patient is on Warfarin for atrial fibrillation and reports her last INR check was a few weeks ago, with no change in dosage. Prior to the fall, the patient was feeling fine. She arrived at the ER via ambulance and was given 100 mcg of Fentanyl for pain management. The patient's , Jorge, and daughter, Debbie, are present with her in the ER. Past medical history is significant for atrial fibrillation and hematoma in November last year. Related Data Home Medications ?Medication ?Instructions ?Recorded ?Confirmed amlodipine 10 mg PO DAILY 12/28/2304/17 amiodarone 200 mg tablet 200 mg PO BID 04/06/2404/06 aspirin 81 mg tablet,delayed 81 mg PO DAILY 04/06/24 0 04/06/24 release (Adult Low Dose Aspirin) Previous Rx's ?Medication ?Instructions ?Recorded warfarin 5 mg tablet See Rx Instructions .Route 0 11/04/23 .COMPLEX #105 tabs levothyroxine 125 mcg tablet 125 mcg PO DAILY #90 tabs 05/11/24 losartan 25 mg tablet 50 mg (2 x 25 mg) PO BID #60 tabs 07/10/24 DISABLED PARKING PERMIT #1 ea 08/17/24 DISABLED PARKING PERMIT #1 ea 08/17/24 oxycodone-acetaminophen 5 mg-325 1 tab PO Q4-6H PRN pa in #15 tabs 10/25/24 mg tablet (Percocet) paroxetine HCl 40 mg tablet 40 mg PO DAILY for depress larry 10/26/24 disorder #90 tabs Allergies Allergy/AdvReac Type Severity Reaction Status Date / Time codeine AdvReac Mild N/V Verified 10/25/24 13:02 Patient History Medical History (Updated 10/26/24 @ 15:50 by Shaan Baker MD) Sleeps in sitting position due to orthopnea Aftercare following surgery of the nervous system, NEC Meningioma, cerebral Rib tenderness Medicare annual wellness visit, subsequent Mixed incontinence urge and stress CKD (chronic kidney disease) stage 4, GFR 15-29 ml/min Anorexia Depression Hypothyroidism (acquired) Warfarin anticoagulation Sacral region somatic dysfunction Somatic dysfunction of lower extremity Pelvic somatic dysfunction Segmental and somatic dysfunction of abdomen and other regions Segmental and somatic dysfunction of rib cage Candidal intertrigo Bilateral lower extremity edema HTN (hypertension) Hyperlipidemia Diabetes Surgical History (Updated 09/09/23 @ 14:11 by Jacques Barry DO) S/P TAVR (transcatheter aortic valve replacement) Status post cholecystectomy Status post appendectomy History of tonsillectomy Family History Father Hypertension Mother Hypertension Stroke Social History Smoking Status: Unknown if ever smoked alcohol intake frequency: holidays/special occasions only Exam Narrative Exam Narrative: VS as noted above Focused physical exam as follows: General: Well developed, well nourished, no acute distress HEENT: pink palpebral conjunctiva, anicteric sclera, MARY, moist mucous membranes, no JVD, no cervical lymphadenopathy Lungs: no respiratory distress, clear to auscultation without wheezes or crackles; equal breath sounds Heart: normal rate, regular rhythm, no appreciable murmurs Abdomen: soft, nontender, no rebound or rigidity Musculoskeletal: LUE noted with gross deformity and swelling to the mid upper arm; nontender over the elbow and forearm; good radial pulse, sensation and color of the extremity and skin; no open wounds, no pedal edema; no tenderness over the C, T or Lspine; no pain on pelvic compression; nontender in all other extremities Skin: pink, warm; no rashes Neuro: ?AAOx3, GCS 15, nonfocal exam Psyche: no SI/HI, normal affect Initial Vital Signs Initial Vital Signs: Vital Signs Temperature 97.3 F L 10/25/24 12:46 Pulse Rate 60 10/25/24 12:46 Respiratory Rate 14 10/25/24 12:46 Blood Pressure 187/88 H 10/25/24 12:46 Pulse Oximetry 94 10/25/24 12:46 Oxygen Delivery Method Room Air 10/25/24 12:46 Course Orders Ordered: Discontinued Medications Hydromorphone HCl (Hydromorphone 1 Mg/Ml Syringe) 0.5 mg IV NOW ONE Stop: 10/25/24 13:14 Last Admin: 10/25/24 13:21 Dose: 0.5 mg Documented By: KATHY Hydromorphone HCl (Hydromorphone 1 Mg/Ml Syringe) 1 mg IV NOW ONE Stop: 10/25/24 15:43 Last Admin: 10/25/24 15:54 Dose: 1 mg Documented By: KATHY Hydromorphone HCl (Hydromorphone Hcl 0.5 Mg/0.5 Ml Syringe) 0.5 mg IV NOW ONE Stop: 10/25/24 18:33 Last Admin: 10/25/24 18:44 Dose: 0.5 mg Documented By: KATHY Vital Signs Vital signs: Vital Signs - 8 hr 10/25/24 12:46 Temperature 97.3 F L Pulse Rate 60 Respiratory Rate 14 Blood Pressure 187/88 H Pulse Oximetry 94 Oxygen Delivery Method Room Air Medical Decision Making Lab Data 10/25/24 12:30 10/25/24 12:30 Labs: Lab Results 10/25/24 Range/Units 12:30 WBC 7.4 (4.5-11.0) X10^3/uL RBC 4.03 (4.0-5.2) X10^6/uL Hgb 11.8 L (12.0-16.0) g/dL Hct 35.1 L (36-46) % MCV 87.1 (80-100) fL MCH 29.2 (26-34) PG MCHC 33.6 (30-36) % RDW 14.8 (11.6-14.8) % Plt Count 331 (150-400) X10^3/uL Neut % (Auto) 78.8 H (50-75) % Lymph % (Auto) 11.8 L (25-40) % [place] % (Auto) 7.2 (3-14) % Eos % (Auto) 1.4 L (2-4) % Baso % (Auto) 0.8 (0-2) % Neut # (Auto) 5800 (4772-1653) /uL Lymph # (Auto) 900 L (7109-3172) /uL [place] # (Auto) 500 (0-900) /uL Eos # (Auto) 100 (0-450) /uL Baso # (Auto) 100 (0-100) /uL PT 23.4 H (9.4-12.5) SECONDS INR 2.1 H (0.9-1.3) APTT 43 H (25.1-36.5) SECONDS Sodium 137 (137-145) mmol/L Potassium 5.1 (3.4-5.1) mmol/L Chloride 106 (98-107) mmol/L Carbon Dioxide 18 L (22-32) mmol/L BUN 39 H (7-17) mg/dL Creatinine 2.71 H (0.52-1.04) mg/dL Estimated GFR 18 L (>60) mL/min BUN/Creatinine Ratio 14.4 (6-22) Glucose 174 H (70-99) mg/dL Calcium 9.7 (8.4-10.2) mg/dL Total Bilirubin 0.4 (0.2-1.3) mg/dL AST 28 (14-36) IU/L ALT 18 (<35) IU/L Alkaline Phosphatase 82 (38-126) U/L Troponin I < 0.012 (0.01-0.034) ng/mL Total Protein 8.0 (6.3-8.2) g/dL Albumin 4.6 (3.5-5.0) g/dL Globulin 3.4 (1.7-4.1) g/dL Albumin/Globulin Ratio 1.4 (1.0-2.8) MDM Narrative Medical decision making narrative: HPI, PMHx, PSHx, Medication list, Allergies, ROS and Focused exam were reviewed above. ?Differential diagnosis as noted below. ?Social determinants affecting care considered. ?All of these were taken into consideration warranting above listed work up. ?Consultations as deemed necessary were documented below (if listed). Labs (if ordered and noted) were independently reviewed by me. Imaging studies (if ordered and noted) were independently reviewed by me EKG (if noted) was independently reviewed by me External documents (if reviewed) are documented above Initial VS noted above. ? Differential diagnosis considered include (but not limited to) the following: humeral fracture/contusion/hematoma, shoulder dislocation, intracranial hemorrhage, supratherapeutic INR, ACS, cardiac dysrhythmia, electrolyte imbalance, liver or kidney failure, dehydration, symptomatic anemia Pt interviewed and examined. Neuro exam nonfocal. No headache, reported head injury, dizziness, neck pain and has full neck ROM. Mainly complaining fo LUE pain with deformity. Considering this could be a distracting injury and pt is currently anticoagulated on Warfarin, will also include CT head. Dilaudid ordered for pain. Labs ordered and reviewed - unremarkable other than chronic renal insufficiency. INR is 2.[address] head: IMPRESSION: No acute intracranial pathology. L humerus: FINDINGS: Bones: Oblique, possibly spiral displaced fracture of the shaft of the humerus with mild angulation. No suspicious bony lesions. Soft tissues: No suspicious soft tissue calcifications. IMPRESSION: Humeral shaft fracture. Discussed and reviewed case and images with Dr. Ortega (ortho) who advised coaptation splint of the upper arm and sling for comfort; may follow up with ortho clinic next week. Coaptation splint and sling fitted by nursing staff without incident; neurovascular status good pre and post splint/sling application. Additional dose of Dilaudid given prior to dismissal. Stable for discharge with return precautions. Discharge Plan Departure Patient Disposition: Home Clinical Impression: Humeral shaft fracture Qualifiers: Encounter type: initial encounter Fracture type: closed Fracture morphology: o blique Fracture alignment: displaced Laterality: left Qualified Code(s): S 42.332A - Displaced oblique fracture of shaft of humerus, left arm, initial encounter for closed fracture Fall Qualifiers: Encounter type: initial encounter Qualified Code(s): W19.XXXA - Unspecified fall, initial encounter Chronic renal insufficiency Qualifiers: Chronic kidney disease stage: unspecified stage Qualified Code(s): N18.9 - Chronic kidney disease, unspecified Instructions: DI for Humeral Fracture Activity Restrictions/Additional Instructions: Use slint and arm sling for comfort. Use Tylenol for mild pain and Percocet for severe pain. Call ortho tomorrow to schedule follow up visit. Prescriptions: New oxycodone-acetaminophen [Percocet] 5-325 mg tablet 1 tab PO Q4-6H PRN (Reason: pain) Qty: 15 0RF No Action losartan 25 mg tablet 50 mg PO BID Qty: 60 0RF (DME) DISABLED PARKING PERMIT See Rx Instructions .ROUTE .MEDSUPPLY Qty: 1 0RF Rx Instructions: I find this patient to be medically disabled and qualified for disabled parking as indicated, and signed, on the accompanying Disabled Parking Application for Individuals. (DME) DISABLED PARKING PERMIT See Rx Instructions .ROUTE .MEDSUPPLY Qty: 1 0RF Rx Instructions: I find this patient to be medically disabled and qualified for disabled parking as indicated, and signed, on the accompanying Disabled Parking Application for Individuals. paroxetine HCl 40 mg tablet 40 mg PO DAILY Qty: 90 1RF levothyroxine 125 mcg tablet 125 mcg PO DAILY Qty: 90 3RF warfarin 5 mg tablet See Rx Instructions .ROUTE .COMPLEX Qty: 105 12RF Protocol: Dose Management Condition: Tuesday Dose/Route: 2.5 mg Instruction: 0.5 x 5 mg tablets Condition: Tuesday Dose/Route: 2.5 mg Instruction: 0.5 x 5 mg tablets Condition: Tuesday Dose/Route: 5 mg Instruction: 1 x 5 mg tablet Condition: Tuesday Dose/Route: 2.5 mg Instruction: 0.5 x 5 mg tablets Condition: Dose/Route: 5 mg Instruction: 1 x 5 mg tablet Condition: Tuesday Dose/Route: 2.5 mg Instruction: 0.5 x 5 mg tablets Condition: Tuesday Dose/Route: 2.5 mg Instruction: 0.5 x 5 mg tablets Protocol Text: Adjustment Start Date: Tuesday09/14/24 INR Value: 2.0 INR Date: 09/13/24 Recheck Date: 09/28/24 Dose Instruction: TAKE ONE-HALF TABLET BY MOUTH TUESDAY AND TUESDAY AND 1 TABLET ALL OTHER DAYS, OR DIRECTED Rx Instructions: Take 1 tablet (5mg) total daily or as directed. amlodipine 10 mg PO DAILY amiodarone 200 mg tablet 200 mg PO BID aspirin [Adult Low Dose Aspirin] 81 mg tablet,delayed release (DR/EC) 81 mg PO DAILY Referrals: Jacques Barry DO [Primary Care Provider, [facility]] Stand Alone Forms: Patient Portal/API
--- NOTE | 2024-10-25 13:13 | DI.RAD.S_ITS ---
PROCEDURE: XR CHEST 1V INDICATIONS: fall TECHNIQUE: One view of the chest was acquired. COMPARISON: [facility], CR, XR CHEST 1V, 08/31/2023, 18:47. FINDINGS: Surgical changes and devices: Pacemaker, TAPVR Lungs and pleura: Lungs are clear. No pleural effusions or pneumothorax. Mediastinum: Mediastinal contours appear normal. Heart size is enlarged. Bones and chest wall: No suspicious bony lesions. Overlying soft tissues appear unremarkable. IMPRESSION: No evidence acute pulmonary process. Dictated by: Orlando Myers M.D. on 10/25/2024 at 14:05 Approved by: Orlando Myers M.D. on 10/25/2024 at 14:13
--- NOTE | 2024-10-25 13:13 | DI.RAD.S_ITS ---
PROCEDURE: XR HUMERUS LT 2V INDICATIONS: arm pain, fall, deformity TECHNIQUE: 2 views of the humerus were acquired. COMPARISON: None. FINDINGS: Bones: Oblique, possibly spiral displaced fracture of the shaft of the humerus with mild angulation. No suspicious bony lesions. Soft tissues: No suspicious soft tissue calcifications. IMPRESSION: Humeral shaft fracture. Dictated by: Orlando Myers M.D. on 10/25/2024 at 14:13 Approved by: Orlando Myers M.D. on 10/25/2024 at 14:14
--- NOTE | 2024-10-25 13:14 | DI.CT.S_ITS ---
PROCEDURE: CT HEAD/BRAIN WO CON INDICATIONS: fall, on Warfarin TECHNIQUE: Noncontrast 4.5 mm thick angled axial sections acquired from the foramen magnum to the vertex, with coronal and sagittal reformats. For radiation dose reduction, the following was used: automated exposure control, adjustment of mA and/or kV according to patient size. COMPARISON: [facility], CT, CT HEAD/BRAIN WO CON, 02/20/2024, 15:15. FINDINGS: Image quality: Diagnostic. CSF spaces: Basal cisterns are patent. No extra-axial fluid collections. The ventricles are symmetric in size and shape. Brain: No intracranial bleeds or mass effect. There is cerebral volume loss, with resultant ventricular and sulcal prominence. There are periventricular and deep white matter chronic small vessel ischemic changes. There is intracranial internal carotid artery atherosclerosis. Skull and face: Calvarium and visualized facial bones appear intact, without suspicious lesions. Sinuses: Visualized sinuses and mastoids are clear. IMPRESSION: No acute intracranial pathology. Dictated by: Janak Carey M.D. on 10/25/2024 at 14:08 Approved by: Janak Carey M.D. on 10/25/2024 at 14:09
[2024-10-25 13:26] LABS: INR 2.1 (0.9-1.3); Prothrombin Time 23.4 SECONDS (9.4-12.5)
[2024-10-25 13:29] LABS: PTT Partial Thromboplastin Tim 43 SECONDS (25.1-36.5)
[2024-10-25 13:32] LABS: Add Manual Diff / Slide Review NO; Alanine Aminotransferase 18 IU/L (<35); Albumin 4.6 g/dL (3.5-5.0); Albumin Globulin Ratio 1.4 (1.0-2.8); Alkaline Phosphatase 82 U/L (38-126); Blood Urea Nitrogen 39 mg/dL (7-17); Calcium 9.7 mg/dL (8.4-10.2); Carbon Dioxide 18 mmol/L (22-32); Chloride 106 mmol/L (98-107); Estimated Glomerular Filt Rate 18 mL/min (>60); Globulin 3.4 g/dL (1.7-4.1); Glucose 174 mg/dL (70-99); HEMOLYSIS < 15 (0-50); Hematocrit 35.1 % (36-46); Hemoglobin 11.8 g/dL (12.0-16.0); Lymphocytes Absolute Auto 900 /uL (1100-4500); Mean Corpuscular HGB Conc 33.6 % (30-36); Mean Corpuscular Hemoglobin 29.2 PG (26-34); Mean Corpuscular Volume 87.1 fL (80-100); Platelet Count 331 X10^3/uL (150-400); Potassium 5.1 mmol/L (3.4-5.1); Sodium 137 mmol/L (137-145); Total Protein 8.0 g/dL (6.3-8.2)
[2024-10-25 13:43] LABS: Troponin I < 0.012 ng/mL (0.01-0.034)
== END 2024-10-25 19:02 | disposition home or self-care (01) ==
PROVIDERS: Emergency Provider Emergency Medicine; PCP Family Medicine
DX: S42.332A Displaced oblique fracture of shaft of humerus, left arm, initial encounter for closed fracture (principal); N18.9 Chronic kidney disease, unspecified; W18.2XXA Fall in (into) shower or empty bathtub, initial encounter; Z79.01 Long term (current) use of anticoagulants
CPT/HCPCS: 70450; 71045; 73060; 80053; 84484; 85025; 85610; 85730; 96374; 96376; 99283; 99284; J1171